=== PATIENT | male | born 1965 | race Caucasian/White ===

== ENCOUNTER 2019-04-01 19:14 | Emergency (ER) | payer OTHER ==
[2019-04-01] MEDS ORDERED: dexAMETHasone 4 MG TAB ONE (21:46)
[2019-04-01] MEDS ORDERED: SMZ./TMP. 800/160 MG TABLET ONE (21:46)
--- NOTE | 2019-04-01 21:49 | ER ---
Nurse's Notes [facility] Name: Amandeep Emerson Age: 53 yrs Sex: Male : 1965 Arrival Date: 04/01/2019 Time: 19:25 Bed 14 Private MD: Diagnosis: Acute upper respiratory infection, unspecified;Cutaneous abscess of limb Presentation: 04/01 19:40 Presenting complaint: Patient states: Runny nose, cough, scratchy throat for about a lp1 week and a half; Unknown fever; Small abscess to back of right upper arm. Transition of care: patient was not received from another setting of care. Onset of symptoms was April 01, 2019. Risk Assessment: Do you want to hurt yourself or someone else? Patient reports no desire to harm self or others. Initial Sepsis Screen: Does the patient meet any 2 criteria? No. Patient's initial sepsis screen is negative. Does the patient have a suspected source of infection? No. Patient's initial sepsis screen is negative. Care prior to arrival: None. 19:40 Method Of Arrival: Ambulatory lp1 19:40 Acuity: JOCELYN 4 lp1 Historical: - Allergies: 19:40 No Known Allergies; lp1 - Home Meds: 19:40 Tramadol Oral [Active]; lp1 - PMHx: 19:40 Headaches; Hypertension; lp1 - PSHx: 19:40 None; lp1 - Immunization history:: Adult Immunizations up to date, Flu vaccine is not up to date. - Social history:: Smoking status: Patient/guardian denies using tobacco. - Ebola Screening: : No symptoms or risks identified at this time. Screenin:42 Abuse screen: Denies threats or abuse. Nutritional screening: No deficits noted. ea Tuberculosis screening: No symptoms or risk factors identified. Fall Risk None identified. Assessment: 20:41 General: Appears uncomfortable, Behavior is calm, cooperative, appropriate for age. ea Pain: Complains of pain in body aches and right upper arm pain. Neuro: Level of Consciousness is awake, alert, obeys commands, Oriented to person, place, time, situation. Respiratory: Airway is patent Respiratory effort is even, unlabored, Respiratory pattern is regular, symmetrical. Derm: Skin is pink, warm \T\ dry. 21:19 Reassessment: Patient and/or family updated on plan of care and expected duration. Pain ea level reassessed. Patient is alert, oriented x 3, equal unlabored respirations, skin warm/dry/pink. Awaiting for lab results. 22:35 Reassessment: Patient and/or family updated on plan of care and expected duration. Pain ea level reassessed. Patient is alert, oriented x 3, equal unlabored respirations, skin warm/dry/pink. Discharge instruction given to patient, verbalized the understanding of instruction. Pt left ED ambulatory accompanied by family. Vital Signs: 19:42 BP 126 / 91; Pulse 93; Resp 20; Temp 98.2(O); Pulse Ox 94% on R/A; Weight 111.13 kg lp1 (R); Height 6 ft. 2 in. (187.96 cm); Pain 5/10; 20:00 Pulse 88; Resp 18; Pulse Ox 96% on R/A; ea 22:15 BP 130 / 78; Pulse 87; Resp 18; Temp 98.0; Pulse Ox 100% ; ea 19:42 Body Mass Index 31.46 (111.13 kg, 187.96 cm) lp1 ED Course: 19:25 Patient arrived in ED. cf2 19:40 Arm band placed on left wrist. lp1 19:42 Triage completed. lp1 19:48 [facility] snw 19:48 John Bhatia MD is Attending Physician. snw 20:41 Indira Trevino, RANDY is Primary Nurse. ea 20:42 Patient has correct armband on for positive identification. Bed in low position. Call ea light in reach. Side rails up X 1. 22:35 No provider procedures requiring assistance completed. Patient did not have IV access ea during this emergency room visit. Administered Medications: 21:49 Drug: Decadron 8 mg Route: PO; ea 22:00 Follow up: Response: No adverse reaction ea 21:49 Drug: Bactrim (160 mg-800 mg (DS) 1 tablet Route: PO; ea 22:00 Follow up: Response: No adverse reaction ea Outcome: 21:48 Discharge ordered by . snw 22:35 Discharged to home ambulatory, with family. ea 22:35 Condition: stable 22:35 Discharge instructions given to patient, Instructed on discharge instructions, follow up and referral plans. medication usage, Demonstrated understanding of instructions, follow-up care, medications. 22:36 Patient left the ED. ea Signatures: Yaneth Buckner, STITCH SEPARATOR-C STITCH SEPARATOR-Csnw Ruthann Ward RN RN lp1 Indira Trevino RN RN ea Danis Blake 2
--- NOTE | 2019-04-01 21:49 | EDPHYS ---
Physician Documentation [facility] Name: Amandeep Emerson Age: 53 yrs Sex: Male : 1965 Arrival Date: 04/01/2019 Time: 19:25 Bed 14 Private MD: ED Physician John Bhatia HPI: 04/01 20:33 This 53 yrs old Male presents to ER via Ambulatory with complaints of Flu snw Symptoms. 20:33 Onset: The symptoms/episode began/occurred gradually, 1 week(s) ago, and became snw persistent. Associated signs and symptoms: Pertinent positives: congestion, cough, sore throat, hoarse voice, Pertinent negatives: fever. Modifying factors: The patient symptoms are alleviated by nothing. It is unknown whether or not the patient has had similar symptoms in the past. It is unknown whether or not the patient has recently seen a physician. all household members with similar s/s. Historical: - Allergies: 19:40 No Known Allergies; lp1 - Home Meds: 19:40 Tramadol Oral [Active]; lp1 - PMHx: 19:40 Headaches; Hypertension; lp1 - PSHx: 19:40 None; lp1 - Immunization history:: Adult Immunizations up to date, Flu vaccine is not up to date. - Social history:: Smoking status: Patient/guardian denies using tobacco. - Ebola Screening: : No symptoms or risks identified at this time. ROS: 20:32 Constitutional: Negative for fever, chills, and weight loss, Eyes: Negative for injury, snw pain, redness, and discharge, Neck: Negative for injury, pain, and swelling, Cardiovascular: Negative for chest pain, palpitations, and edema, Respiratory: Negative for shortness of breath, cough, wheezing, and pleuritic chest pain, Abdomen/GI: Negative for abdominal pain, nausea, vomiting, diarrhea, and constipation, Back: Negative for injury and pain, : Negative for injury, bleeding, discharge, and swelling, MS/Extremity: Negative for injury and deformity, Neuro: Negative for headache, weakness, numbness, tingling, and seizure, Psych: Negative for depression, anxiety, suicide ideation, homicidal ideation, and hallucinations. 20:32 ENT: Positive for sinus congestion, sore throat. 20:32 ENT: Positive for hoarseness. 20:32 Neck: Positive for swollen nodes. 20:32 Skin: Positive for abscess, of the posterior aspect of right shoulder. Exam: 20:30 Constitutional: This is a well developed, well nourished patient who is awake, alert, snw and in no acute distress. Head/Face: Normocephalic, atraumatic. Eyes: Pupils equal round and reactive to light, extra-ocular motions intact. Lids and lashes normal. Conjunctiva and sclera are non-icteric and not injected. Cornea within normal limits. Periorbital areas with no swelling, redness, or edema. Chest/axilla: Normal chest wall appearance and motion. Nontender with no deformity. No lesions are appreciated. Cardiovascular: Regular rate and rhythm with a normal S1 and S2. No gallops, murmurs, or rubs. Normal PMI, no JVD. No pulse deficits. Respiratory: Lungs have equal breath sounds bilaterally, clear to auscultation and percussion. No rales, rhonchi or wheezes noted. No increased work of breathing, no retractions or nasal flaring. Abdomen/GI: Soft, non-tender, with normal bowel sounds. No distension or tympany. No guarding or rebound. No evidence of tenderness throughout. Back: No spinal tenderness. No costovertebral tenderness. Full range of motion. MS/ Extremity: Pulses equal, no cyanosis. Neurovascular intact. Full, normal range of motion. Neuro: Awake and alert, GCS 15, oriented to person, place, time, and situation. Cranial nerves II-XII grossly intact. Motor strength 5/5 in all extremities. Sensory grossly intact. Cerebellar exam normal. Normal gait. Psych: Awake, alert, with orientation to person, place and time. Behavior, mood, and affect are within normal limits. 20:30 ENT: External ear(s): are unremarkable, TM's: are normal, Nose: is normal, Mouth: is normal, Posterior pharynx: swelling, erythema, that is moderate, that is marked, left posterior column, Voice: is hoarse. 20:30 Neck: Lymph nodes: lymphadenopathy is appreciated, anterior cervical nodes. 20:30 Skin: Appearance: normal except for affected area, abscess, that is moderate sized, approximately 1 cm(s), of the posterior aspect of right shoulder, with surrounding cellulitis, that is very mild. Vital Signs: 19:42 BP 126 / 91; Pulse 93; Resp 20; Temp 98.2(O); Pulse Ox 94% on R/A; Weight 111.13 kg lp1 (R); Height 6 ft. 2 in. (187.96 cm); Pain 5/10; 20:00 Pulse 88; Resp 18; Pulse Ox 96% on R/A; ea 22:15 BP 130 / 78; Pulse 87; Resp 18; Temp 98.0; Pulse Ox 100% ; ea 19:42 Body Mass Index 31.46 (111.13 kg, 187.96 cm) lp1 MDM: 20:00 Patient medically screened. snw 21:48 Data reviewed: vital signs, nurses notes. Data interpreted: Pulse oximetry: on room air snw is 94 %. Interpretation: acceptable. Counseling: I had a detailed discussion with the patient and/or guardian regarding: the historical points, exam findings, and any diagnostic results supporting the discharge/admit diagnosis, lab results, the need for outpatient follow up, to return to the emergency department if symptoms worsen or persist or if there are any questions or concerns that arise at home. Special discussion: I have referred the patient to see his PCP for further evaluation of high blood pressure. Based on the history and exam findings, there is no indication for further emergent testing or inpatient evaluation. I discussed with the patient/guardian the need to see the primary care provider for further evaluation of the symptoms. 04/01 20:55 Order name: Strep; Complete Time: 21:53 ea 04/01 21:48 Order name: Throat Culture EDMS Administered Medications: 21:49 Drug: Decadron 8 mg Route: PO; ea 22:00 Follow up: Response: No adverse reaction ea 21:49 Drug: Bactrim (160 mg-800 mg (DS) 1 tablet Route: PO; ea 22:00 Follow up: Response: No adverse reaction ea Disposition: 04/02 00:45 Co-signature as Attending Physician, John Bhatia MD. rn Disposition: 04/01/19 21:48 Discharged to Home. Impression: Acute upper respiratory infection, unspecified, Cutaneous abscess of limb. - Condition is Stable. - Discharge Instructions: Skin Abscess, Upper Respiratory Infection, Adult, Cool Mist Vaporizer, Rehydration, Adult. - Prescriptions for Bactrim DS 800- 160 mg Oral Tablet - take 1 tablet by ORAL route every 12 hours for 10 days; 20 tablet. - Work release form, Medication Reconciliation Form, Thank You Letter, Antibiotic Education, Prescription Opioid Use form. - Follow up: Private Physician; When: 2 - 3 days; Reason: Recheck today's complaints, Continuance of care, Re-evaluation by your physician. Follow up: Emergency Department; When: As needed; Reason: Worsening of condition. Signatures: Dispatcher [employer] EDMS Yaneth Buckner, SOURAV-C DIRECTOR HOSPICE OPERATIONS-Csnw Jhon Bhatia MD MD rn Ruthann Ward RN RN lp1 Indira Trevino RN RN ea Corrections: (The following items were deleted from the chart) 04/01 22:36 21:48 04/01/2019 21:48 Discharged to Home. Impression: Acute upper respiratory ea infection, unspecified; Cutaneous abscess of limb. Condition is Stable. Forms are Medication Reconciliation Form, Thank You Letter, Antibiotic Education, Prescription Opioid Use. Follow up: Private Physician; When: 2 - 3 days; Reason: Recheck today's complaints, Continuance of care, Re-evaluation by your physician. Follow up: Emergency Department; When: As needed; Reason: Worsening of condition. snw
[2019-04-02 01:36] VITALS: BP 126/91; TEMP 98.2; O2SAT 94
== END 2019-04-01 22:36 | disposition home or self-care (01) ==
LOC: ER 19:14
DX: J06.9 Acute upper respiratory infection, unspecified (principal); L02.413 Cutaneous abscess of right upper limb; I10 Essential (primary) hypertension
CPT/HCPCS: 87070; 87081; 99283; J8540

== ENCOUNTER 2019-12-08 12:56 | Observation (INO) | payer BC, OTHER ==
[2019-12-08] MEDS ORDERED: ASPIRIN 81 MG CHEWABLE TABLET ONE (13:59)
[2019-12-08] MEDS ORDERED: NA CHLORIDE 0.9% 1,000 ML ONE (14:00)
[2019-12-08 14:18] LABS: Absolute Lymphocytes (CBC) 1.6 K/uL (0.7-4.9); Basophils % 0.6 % (0-1.3); Hematocrit 42.3 % (39.6-49.0); MPV 10.6 fL (7.6-11.3); RBC Red Blood Cell Count 4.63 M/uL (4.33-5.43)
[2019-12-08 14:42] LABS: ALT/SGPT 68 U/L (12-78); AST/SGOT 29 U/L (15-37); Albumin 3.9 g/dL (3.4-5.0); Alkaline Phosphatase 117 U/L (45-117); BUN Blood Urea Nitrogen 8 mg/dL (7-18); Bicarbonate 27 mmol/L (21-32); Bilirubin Direct 0.1 mg/dL (0-0.2); Bilirubin Total 0.4 mg/dL (0.2-1.0); Glucose Level 93 mg/dL (74-106); Lipase 107 U/L (73-393); Magnesium 2.4 mg/dL (1.8-2.4); NT PRO-BNP 36 pg/mL (<125); Potassium 4.2 mmol/L (3.5-5.1); Protein, Total 7.5 g/dL (6.4-8.2); Sodium Level 141 mmol/L (136-145); Troponin (Emerg Dept Use Only) < 0.02 ng/mL (0.0-0.045)
--- NOTE | 2019-12-08 14:50 | EDPHYS ---
Physician Documentation [facility] Name: Amandeep Emerson Age: 54 yrs Sex: Male : 1965 Arrival Date: 12/08/2019 Time: 13:00 Bed 6 Private MD: DONNELL Physician Glen Burgos HPI: 12/07 14:46 This 54 yrs old Male presents to ER via Ambulatory with complaints of Chest anthony Pain. 14:46 The patient or guardian reports chest pain that is located primarily in the substernal anthony area. Onset: just prior to arrival, this morning. The pain radiates to both arms. Associated signs and symptoms: Pertinent positives: dizziness, shortness of breath. The chest pain is described as a heaviness, a pressure. Duration: The patient or guardian reports multiple episodes, with no pattern. Modifying factors: The symptoms are alleviated by nothing. the symptoms are aggravated by nothing. Severity of pain: At its worst the pain was moderate in the emergency department the pain has improved moderately. The patient has experienced similar episodes in the past, a few times. Historical: - Allergies: 13:05 No Known Allergies; ll1 - PMHx: 13:05 Headaches; Hypertension; High Cholesterol; ll1 14:13 COPD; vc - PSHx: 13:05 None; ll1 - Immunization history:: Flu vaccine is not up to date. - Social history:: Smoking status: Patient/guardian denies using tobacco, the patient reports quitting approximately 3 years ago, Patient/guardian denies using alcohol, street drugs, tobacco products. - Family history:: not pertinent. ROS: 14:46 Constitutional: Negative for fever, chills, and weight loss, Eyes: Negative for injury, anthony pain, redness, and discharge, ENT: Negative for injury, pain, and discharge, Neck: Negative for injury, pain, and swelling, Cardiovascular: Negative for chest pain, palpitations, and edema, Abdomen/GI: Negative for abdominal pain, nausea, vomiting, diarrhea, and constipation, Back: Negative for injury and pain, : Negative for injury, bleeding, discharge, and swelling, MS/Extremity: Negative for injury and deformity, Skin: Negative for injury, rash, and discoloration, Neuro: Negative for headache, weakness, numbness, tingling, and seizure, Psych: Negative for depression, anxiety, suicide ideation, homicidal ideation, and hallucinations, Allergy/Immunology: Negative for hives, rash, and allergies, Endocrine: Negative for neck swelling, polydipsia, polyuria, polyphagia, and marked weight changes, Hematologic/Lymphatic: Negative for swollen nodes, abnormal bleeding, and unusual bruising. 14:46 Respiratory: Positive for cough, shortness of breath, at rest. 14:46 Respiratory: Positive for Exam: 14:46 Constitutional: This is a well developed, well nourished patient who is awake, alert, anthony and in no acute distress. Head/Face: Normocephalic, atraumatic. Eyes: Pupils equal round and reactive to light, extra-ocular motions intact. Lids and lashes normal. Conjunctiva and sclera are non-icteric and not injected. Cornea within normal limits. Periorbital areas with no swelling, redness, or edema. ENT: Nares patent. No nasal discharge, no septal abnormalities noted. Tympanic membranes are normal and external auditory canals are clear. Oropharynx with no redness, swelling, or masses, exudates, or evidence of obstruction, uvula midline. Mucous membranes moist. Neck: Trachea midline, no thyromegaly or masses palpated, and no cervical lymphadenopathy. Supple, full range of motion without nuchal rigidity, or vertebral point tenderness. No Meningismus. Chest/axilla: Normal chest wall appearance and motion. Nontender with no deformity. No lesions are appreciated. Cardiovascular: Regular rate and rhythm with a normal S1 and S2. No gallops, murmurs, or rubs. Normal PMI, no JVD. No pulse deficits. Respiratory: Lungs have equal breath sounds bilaterally, clear to auscultation and percussion. No rales, rhonchi or wheezes noted. No increased work of breathing, no retractions or nasal flaring. Abdomen/GI: Soft, non-tender, with normal bowel sounds. No distension or tympany. No guarding or rebound. No evidence of tenderness throughout. Back: No spinal tenderness. No costovertebral tenderness. Full range of motion. Male : Normal genitalia with no discharge or lesions. Skin: Warm, dry with normal turgor. Normal color with no rashes, no lesions, and no evidence of cellulitis. MS/ Extremity: Pulses equal, no cyanosis. Neurovascular intact. Full, normal range of motion. Neuro: Awake and alert, GCS 15, oriented to person, place, time, and situation. Cranial nerves II-XII grossly intact. Motor strength 5/5 in all extremities. Sensory grossly intact. Cerebellar exam normal. Normal gait. Psych: Awake, alert, with orientation to person, place and time. Behavior, mood, and affect are within normal limits. Vital Signs: 13:08 BP 157 / 113; Pulse 78; Resp 18; Temp 98.1; Pulse Ox 96% ; Pain 5/10; ll1 14:07 BP 138 / 93; Pulse 67; Resp 17; Pulse Ox 91% on R/A; vc 15:00 BP 138 / 96; Pulse 66; Resp 18; Pulse Ox 93% on R/A; ph 15:03 Weight 127.01 kg; ph 16:00 BP 141 / 98; Pulse 66; Resp 16; Pulse Ox 94% on R/A; ph 17:00 BP 146 / 108; Pulse 59; Resp 18; Pulse Ox 93% on R/A; ph 18:09 BP 139 / 102; Pulse 75; Resp 18; Pulse Ox 94% on R/A; ph 19:00 BP 135 / 100; Pulse 61; Resp 17; Pulse Ox 93% on R/A; rr5 19:51 BP 131 / 98; Pulse 58; Resp 17; Temp 97.6; Pulse Ox 94% on R/A; rr5 MDM: 13:[address] [facility] 14:48 Data reviewed: vital signs, nurses notes, lab test result(s), EKG, radiologic studies, [facility] CT scan, plain films. 12/07 13:26 Order name: Basic Metabolic Panel; Complete Time: 14:43 [facility] 12/07 13:26 Order name: CBC with Diff; Complete Time: 14:43 [facility] 12/07 13:26 Order name: LFT's; Complete Time: 14:43 [facility] 12/07 13:26 Order name: Magnesium; Complete Time: 14:43 [facility] 12/07 13:26 Order name: NT PRO-BNP; Complete Time: 14:43 [facility] 12/07 13:26 Order name: Troponin (emerg Dept Use Only); Complete Time: 14:43 [facility] 12/07 13:26 Order name: XRAY Chest (1 view); Complete Time: 15:33 [facility] 12/07 13:26 Order name: EKG; Complete Time: 13:28 [facility] 12/07 13:26 Order name: Cardiac monitoring; Complete Time: 14:12 [facility] 12/07 13:26 Order name: Lipase; Complete Time: 14:43 [facility] 12/07 13:26 Order name: EKG - Nurse/Tech; Complete Time: 14:12 [facility] 12/07 13:26 Order name: IV Saline Lock; Complete Time: 14:12 [facility] 12/07 13:26 Order name: Labs collected and sent; Complete Time: 14:12 [facility] 12/07 13:26 Order name: O2 Per Protocol; Complete Time: 14:12 [facility] 12/07 13:26 Order name: O2 Sat Monitoring; Complete Time: 14:12 [facility] Administered Medications: 13:55 Drug: Aspirin Chewable Tablet 324 mg Route: PO; vc 18:31 Follow up: Response: No adverse reaction ph 14:07 Drug: NS 0.9% 1000 ml Route: IV; Rate: 125 ml/hr; Site: right antecubital; vc 18:31 Follow up: Response: No adverse reaction; IV Status: Infusion continued upon admission ph 18:03 Drug: Lovenox 1 mg/kg {Note: 100 mg dose given.} Route: Sub-Q; Site: right lower ph abdomen; 18:32 Follow up: Response: No adverse reaction ph 18:04 Drug: Lopressor (metoprolol TARTRATE) 50 mg Route: PO; ph 18:32 Follow up: Response: No adverse reaction ph Disposition: 12/08/19 14:50 Hospitalization ordered by Edson Lawrence for Observation. Preliminary diagnosis are Chest pain, unspecified, Chronic obstructive pulmonary disease, unspecified, Essential (primary) hypertension. - Bed requested for Telemetry/MedSurg (observation). - Status is Observation. rr5 - Condition is Fair. - Problem is new. - Symptoms have improved. Signatures: Dispatcher [employer] EDMS Amalia Gutierrez RN RN kl Anderson, Corey, MD MD cha Attema, Lee, COMMIS CHEF-C COMMIS CHEF-Cla1 Flower Gutierrez RN RN ph Roque, Raymond, RN RN rr5 Daja Mobley RN RN vc Lewis, Lynsay, RN RN ll1 Corrections: (The following items were deleted from the chart) 18:05 14:50 Hospitalization Ordered by Edson Lawrence DO for Observation. Preliminary kl diagnosis is Chest pain, unspecified; Chronic obstructive pulmonary disease, unspecified; Essential (primary) hypertension. Bed requested for Telemetry/MedSurg (observation). Status is Observation. Condition is Fair. Problem is new. Symptoms have improved. anthony 20:41 18:05 12/08/2019 14:50 Hospitalization Ordered by Edson Lawrence DO for Observation. rr5 Preliminary diagnosis is Chest pain, unspecified; Chronic obstructive pulmonary disease, unspecified; Essential (primary) hypertension. Bed requested for Telemetry/MedSurg (observation). Status is Observation. Condition is Fair. Problem is new. Symptoms have improved. kl
--- NOTE | 2019-12-08 14:50 | ER ---
Nurse's Notes [facility] Name: Amandeep Emerson Age: 54 yrs Sex: Male : 1965 Arrival Date: 12/08/2019 Time: 13:00 Bed 6 Private MD: Diagnosis: Chest pain, unspecified;Chronic obstructive pulmonary disease, unspecified;Essential (primary) hypertension Presentation: 12/07 13:08 Chief complaint: Patient states: Left sided CP since Sunday, severe yesterday. ll1 Continued left CP today with fatigue. Radiates into neck and arms at times. Hasn't been taking high cholesterol medication. Coronavirus screen: Proceed with normal triage. Patient denies a cough. Patient denies shortness of breath or difficulty breathing. Patient denies measured and/or subjective temperature greater than 100.4F prior to today's visit. Patient denies travel on a cruise ship or to a country the [facility] currently lists as an affected area. Patient denies contact with known and/or suspected case of COVID-19. Ebola Screen: Patient denies travel to an Ebola-affected area in the 21 days before illness onset. Initial Sepsis Screen: Does the patient meet any 2 criteria? No. Patient's initial sepsis screen is negative. Does the patient have a suspected source of infection? No. Patient's initial sepsis screen is negative. Risk Assessment: Do you want to hurt yourself or someone else? Patient reports no desire to harm self or others. Onset of symptoms was December 06, 2019. 13:08 Method Of Arrival: Ambulatory ll1 13:08 Acuity: JOCELYN 2 ll1 Triage Assessment: 12/06 13:55 General: Appears in no apparent distress. uncomfortable, Behavior is calm, cooperative, vc appropriate for age. Pain: Complains of pain in below left breast Pain does not radiate. Pain currently is 5 out of 10 on a pain scale. at worst was 10 out of 10 on a pain scale. Quality of pain is described as sharp, Pain began suddenly, 2-3 days ago. Is intermittent. Cardiovascular: Capillary refill < 3 seconds Patient's skin is warm and dry. Respiratory:. Historical: - Allergies: 12/07 13:05 No Known Allergies; ll1 - PMHx: 13:05 Headaches; Hypertension; High Cholesterol; ll1 14:13 COPD; vc - PSHx: 13:05 None; ll1 - Immunization history:: Flu vaccine is not up to date. - Social history:: Smoking status: Patient/guardian denies using tobacco, the patient reports quitting approximately 3 years ago, Patient/guardian denies using alcohol, street drugs, tobacco products. - Family history:: not pertinent. Screenin:55 Abuse screen: Denies threats or abuse. Nutritional screening: No deficits noted. vc Tuberculosis screening: No symptoms or risk factors identified. Fall Risk None identified. Assessment: 13:55 General: Appears in no apparent distress. uncomfortable, Behavior is calm, cooperative, vc appropriate for age. Pain: Complains of pain in below left breast Pain does not radiate. Pain currently is 5 out of 10 on a pain scale. at worst was 10 out of 10 on a pain scale. Quality of pain is described as sharp, stabbing, Pain began suddenly, 2-3 days ago. Neuro: Level of Consciousness is awake, alert, obeys commands, Oriented to person, place, time, situation, Appropriate for age Patient Observation Assistant are equal bilaterally Moves all extremities. Speech is normal. Cardiovascular: Reports chest pain, Denies lightheadedness, palpitations, shortness of breath, Capillary refill < 3 seconds Patient's skin is warm and dry. Chest pain is described as mild, quality is sharp, stabbing, is located in left substernal area. Respiratory: Airway is patent Respiratory effort is even, unlabored, Respiratory pattern is regular, symmetrical. GI: No signs and/or symptoms were reported involving the gastrointestinal system. : No signs and/or symptoms were reported regarding the genitourinary system. EENT: No deficits noted. Derm: Skin is dry, Skin is pink, warm \T\ dry. Skin temperature is warm. Musculoskeletal: Circulation, motion, and sensation intact. Range of motion: intact in all extremities. 15:00 Reassessment: Patient appears in no apparent distress at this time. Patient and/or ph family updated on plan of care and expected duration. Pain level reassessed. Patient is alert, oriented x 3, equal unlabored respirations, skin warm/dry/pink. 16:00 Reassessment: Patient appears in no apparent distress at this time. Patient and/or ph family updated on plan of care and expected duration. Pain level reassessed. Patient is alert, oriented x 3, equal unlabored respirations, skin warm/dry/pink. Patient denies pain at this time. 17:00 Reassessment: Patient appears in no apparent distress at this time. Patient and/or ph family updated on plan of care and expected duration. Pain level reassessed. Patient is alert, oriented x 3, equal unlabored respirations, skin warm/dry/pink. 18:04 Reassessment: Patient appears in no apparent distress at this time. Patient and/or ph family updated on plan of care and expected duration. Pain level reassessed. Patient is alert, oriented x 3, equal unlabored respirations, skin warm/dry/pink. Pt resting quietly, denies pain at this time, VSS, eating a sandwich at this time, tolerating well, awaiting room assignment. 18:20 Reassessment: Patient appears in no apparent distress at this time. No changes from previously documented assessment. Patient and/or family updated on plan of care and expected duration. Pain level reassessed. Patient is alert, oriented x 3, equal unlabored respirations, skin warm/dry/pink. Attempted to call report, receiving nurse unavailable. 19:30 Reassessment: Patient appears in no apparent distress at this time. Patient is alert, rr5 oriented x 3, equal unlabored respirations, skin warm/dry/pink. for transfer to room 212. received awake alert vitally stable, watching TV on semi fowlers position, no complaints made. 19:30 General: Appears in no apparent distress. comfortable, Behavior is calm, cooperative, rr5 appropriate for age. Vital Signs: 13:08 BP 157 / 113; Pulse 78; Resp 18; Temp 98.1; Pulse Ox 96% ; Pain 5/10; ll1 14:07 BP 138 / 93; Pulse 67; Resp 17; Pulse Ox 91% on R/A; vc 15:00 BP 138 / 96; Pulse 66; Resp 18; Pulse Ox 93% on R/A; ph 15:03 Weight 127.01 kg; ph 16:00 BP 141 / 98; Pulse 66; Resp 16; Pulse Ox 94% on R/A; ph 17:00 BP 146 / 108; Pulse 59; Resp 18; Pulse Ox 93% on R/A; ph 18:09 BP 139 / 102; Pulse 75; Resp 18; Pulse Ox 94% on R/A; ph 19:00 BP 135 / 100; Pulse 61; Resp 17; Pulse Ox 93% on R/A; rr5 19:51 BP 131 / 98; Pulse 58; Resp 17; Temp 97.6; Pulse Ox 94% on R/A; rr5 ED Course: 13:00 Patient arrived in ED. mr 13:05 Arm band placed on Patient placed in an exam room, on a stretcher. ll1 13:06 Glen Burgos MD is Attending Physician. anthony 13:11 Triage completed. ll1 13:12 Flower Gutierrez, RANDY is Primary Nurse. ph 13:34 EKG done, by technical delivery manager. reviewed by Glen Burgos MD. at1 13:55 Patient has correct armband on for positive identification. Bed in low position. Call vc light in reach. senior office assistant on. Pulse ox on. NIBP on. 13:55 Inserted saline lock: 20 gauge in right antecubital area, using aseptic technique. vc Blood collected. 14:49 Edson Lawrence DO is Hospitalizing Provider. anthony 14:59 XRAY Chest (1 view) In Process Unspecified. EDMS 18:08 No provider procedures requiring assistance completed. Patient admitted, IV remains in ph place. Patient maintains SpO2 saturation greater than 95% on room air. Administered Medications: 13:55 Drug: Aspirin Chewable Tablet 324 mg Route: PO; vc 18:31 Follow up: Response: No adverse reaction ph 14:07 Drug: NS 0.9% 1000 ml Route: IV; Rate: 125 ml/hr; Site: right antecubital; vc 18:31 Follow up: Response: No adverse reaction; IV Status: Infusion continued upon admission ph 18:03 Drug: Lovenox 1 mg/kg {Note: 100 mg dose given.} Route: Sub-Q; Site: right lower ph abdomen; 18:32 Follow up: Response: No adverse reaction ph 18:04 Drug: Lopressor (metoprolol TARTRATE) 50 mg Route: PO; ph 18:32 Follow up: Response: No adverse reaction ph Outcome: 14:50 Decision to Hospitalize by Provider. anthony 20:09 Admitted to Med/surg accompanied by tech, via stretcher, room 212, with chart, Report rr5 called to [place] PADILLA 20:09 Condition: stable 20:09 Instructed on the need for admit. 20:41 Patient left the ED. rr5 Signatures: Dispatcher [employer] EDGlen Wetzel MD MD cha Rivera, Thalia mr Tavo, Hien, hand mixer EKG Tat1 Flower Gutierrez RN RN Jose Vanessa RN RN rr5 Daja Mobley RN RN Mary Ann Doran RN RN ll1
[2019-12-08] MEDS ORDERED: METOPROLOL TAR 50 MG TAB ONE (15:10)
[2019-12-08] MEDS ORDERED: ENOXAPARIN 100 MG/ML SYR SQ ONE (15:10)
--- NOTE | 2019-12-08 15:20 | RAD REPORT ---
EXAM DESCRIPTION: RAD - Chest Single View - 12/08/2019 2:58 pm CLINICAL HISTORY: CHEST PAIN Chest pain. COMPARISON: Chest Pa And Lat (2 Views) dated 05/25/2016 FINDINGS: Portable technique limits examination quality. The lungs are grossly clear. The heart is normal in size. No displaced fractures. IMPRESSION: No acute intrathoracic process suspected.
--- NOTE | 2019-12-08 17:58 | P.HP ---
Certification for Inpatient Patient admitted to: Observation With expected LOS: <2 Midnights Patient will require the following post-hospital care: None Practitioner: I am a practitioner with admitting privileges, knowledge of patient current condition, hospital course, and medical plan of care. Services: Services provided to patient in accordance with Admission requirements found in Title 42 Section 412.3 of the Code of Federal Regulations <Hernandez Butcher Filed: 12/08/19 17:53> Patient admitted to: Observation <Edson Lawrence - Last Filed: 12/08/19 20:46> Patient History Date of Service: 12/08/19 Primary Care Provider: none Reason for admission: Chest pain History of Present Illness: 54-year-old male with history of hypertension presented the emergency department for chest pain. Patient reports that the chest pain has been radiating down his left arm, patient reports admission to another facility approximately 1 year ago for similar symptoms. Patient unsure of what kind of workup he received at that time. Patient is currently having very mild symptoms with some mild shortness of breath, but he is not hypoxic. Patient is mildly hypertensive and is not on any medications at this time. Patient without PCP. Patient was evaluated in the emergency department and found to have normal EKG, chest x-ray, negative cardiac enzymes. ED provider wishes to admit patient for observation overnight and further cardiac evaluation. When I saw the patient in the emergency department he was calm, cooperative, oriented x3, in no distress. Will admit patient overnight, trend cardiac enzymes, order an echocardiogram, consult cardiology. - Past Medical/Surgical History Diabetic: No -: Hypertension -: none - Family History Father -: Heart disease Sister -: Heart disease - Social History Smoking Status: Former smoker Alcohol use: No CD- Drugs: No Caffeine use: No Place of Residence: Home <Hernandez Butcher - Last Filed: 12/08/19 17:53> Date of Service: 12/08/19 Home medications list reviewed: Yes - Past Medical/Surgical History Psychosocial/ Personal History: Lives at home <Edson Lawrence - Last Filed: 12/08/19 20:46> Allergies No Known A Allergy (Uncoded 01/28/17 00:21) Unknown No Known Al Allergy (Uncoded 01/26/17 07:16) Unknown No Known Miky Allergy (Uncoded 02/10/17 21:26) Unknown Home Medications: Apixaban [Eliquis] 5 mg PO BID #60 tablet 02/10/17 Review of Systems 10-point ROS is otherwise unremarkable Respiratory: Shortness of Breath Cardiovascular: Chest Pain <Hernandez Butcher - Last Filed: 12/08/19 17:53> Physical Examination - Physical Exam General: Alert, In no apparent distress, Oriented x3 HEENT: Atraumatic, Normocephalic, PERRLA, Mucous membr. moist/pink Neck: Supple Respiratory: Clear to auscultation bilaterally, Normal air movement Cardiovascular: Normal pulses, Regular rate/rhythm, Normal S1 S2 Capillary refill: <2 Seconds Gastrointestinal: Normal bowel sounds, Soft and benign Musculoskeletal: No contractures, No erythema, No tenderness Integumentary: No tenderness/swelling, No erythema Neurological: Normal speech, Normal strength at 5/5 x4 extr, Normal tone, Sensation intact - Studies Laboratory Data (last 24 hrs) 12/08/19 14:00: WBC 7.4, Hgb 14.0, Hct 42.3, Plt Count 210 12/08/19 14:00: Sodium 141, Potassium 4.2, BUN 8, Creatinine 0.92, Glucose 93, Magnesium 2.4, Total Bilirubin 0.4, AST 29, ALT 68, Alkaline Phosphatase 117, Lipase 107 <Hernandez Butcher - Last Filed: 12/08/19 17:53> - Studies Laboratory Data (last 24 hrs) 12/08/19 14:00: WBC 7.4, Hgb 14.0, Hct 42.3, Plt Count 210 12/08/19 14:00: Sodium 141, Potassium 4.2, BUN 8, Creatinine 0.92, Glucose 93, Magnesium 2.4, Total Bilirubin 0.4, AST 29, ALT 68, Alkaline Phosphatase 117, Lipase 107 <Edson Lawrence - Last Filed: 12/08/19 20:46> Assessment and Plan - Plan Assessment Chest pain Hypertension Plan Chest pain : The patient be admitted for observation overnight, will trend cardiac enzymes, provide patient with daily aspirin, a statin. Added metoprolol. DVT prophylaxis with Lovenox 40 mg subcutaneous once daily. Cardiology has been consulted on this case, echocardiogram ordered. Anticipate benign workup and likely discharge tomorrow. Hypertension: Patient reports issue blood pressure, is hypertensive and not taking any medications currently. Initiated therapy with metoprolol 25 mg b.i.d.. Will continue to monitor closely. - Advance Directives Does patient have a Living Will: No Does patient have a Durable POA for Healthcare: No - Code Status/Comfort Care Code Status Assessed: Yes (Patient is full code) Critical Care: No Time Spent Managing Pts Care (In Minutes): 55 <Hernandez Butcher - Last Filed: 12/08/19 17:53> - Plan Discussed in detail with PIPELINE ENGINEER. Agree with evaluation, assessment and plan of care. Will monitor closely. Monitor telemetry, cardiac enzymes. Will consult Cardiology for recommendations. Will also obtain ECHO. Restart HTN meds. Chest pain HTN Discharge Plan: Home Plan to discharge in: 24 Hours <Edson Lawrence - Last Filed: 12/08/19 20:46>
[2019-12-08] MEDS ORDERED: ONDANSETRON 4 MG/2 ML VIAL IV PRN (20:17)
[2019-12-08] MEDS ORDERED: ACETAMINOPHEN 500 MG TAB PO PRN (20:17)
[2019-12-08] MEDS: METOPROLOL TAR 25 MG TAB PO SCH (20:17)
[2019-12-08] MEDS ORDERED: ATORVASTATIN 40 MG TAB PO SCH (21:00)
[2019-12-08] MEDS: NA CHLORIDE 0.9% 1,000 ML IV SCH (21:14)
[2019-12-08 21:19] VITALS: BMI 30.7
[2019-12-09] MEDS: METOPROLOL TAR 25 MG TAB PO SCH ×2 (04:45→17:28)
[2019-12-09 04:49] LABS: Absolute Lymphocytes (CBC) 2.8 K/uL (0.7-4.9); Basophils % 0.6 % (0-1.3); Hematocrit 38.3 % (39.6-49.0); Lymphocytes % 39.8 % (15.3-44.8); MPV 10.2 fL (7.6-11.3); RBC Red Blood Cell Count 4.22 M/uL (4.33-5.43)
[2019-12-09 05:06] LABS: BUN Blood Urea Nitrogen 10 mg/dL (7-18); Bicarbonate 28 mmol/L (21-32); Glucose Level 105 mg/dL (74-106); HDL Cholesterol 40 mg/dL (40-60); LDL Cholesterol, Calculated 66 (<130); Magnesium 2.2 mg/dL (1.8-2.4); Potassium 4.4 mmol/L (3.5-5.1); Sodium Level 142 mmol/L (136-145); Troponin I < 0.02 ng/mL (0.0-0.045)
[2019-12-09] MEDS ORDERED: ASPIRIN EC 81 MG TAB PO SCH (09:00)
[2019-12-09] MEDS ORDERED: ENOXAPARIN 40 MG/0.4 ML SQ SCH (09:00)
[2019-12-09] MEDS: NA CHLORIDE 0.9% 1,000 ML IV SCH (09:37)
--- NOTE | 2019-12-09 12:11 | EKG ---
Test Date: 2019-12-08 Test Time: 13:29:23 [employer]: CROW MEASUREMENT RESULTS: Intervals: Rate: 72 PA: 176 QRSD: 98 QT: 396 QTc: 433 Osborne: P: 46 PA: 176 QRS: 7 T: 52 INTERPRETIVE STATEMENTS: Normal sinus rhythm Normal ECG Compared to ECG 02/10/2017 16:57:51 No significant changes Electronically Signed On 12-09-19 12:09:36 CDT by Torrey Moulton
[2019-12-09 12:39] VITALS: BP 140/79
[2019-12-09 13:11] VITALS: O2SAT 95
--- NOTE | 2019-12-09 14:56 | CON ---
Date of Consultation: 12/09/2019 Reason For Consultation: Chest pain. History Of Present Illness: Mr. Emerson is a 54-year-old male with history of hypertension, dyslipidemi a, COPD, came in with left lateral sharp stabbing chest pain that has been going on intermittently fo r couple of days without any nausea, vomiting, diaphoresis, PND, orthopnea, pedal edema, palpitations , or syncope. The pain is not related to food, time of the day, or body position. It is not related to exertion. He is already ruled out by the time I saw him. EKG is normal. Past Medical History: As stated above. Allergies: NONE. Review of Systems: Negative. Social History: Negative. Family History: Noncontributory. Medications: None. Physical Examination: Vital Signs: Stable, afebrile. HEENT: Exam negative. Neck: Supple, no bruit. Chest: Clear. Cardiac: Revealed a regular rhythm and rate. No murmurs, gallops, or rubs. Abdomen: Benign. Extremities: Revealed no clubbing, cyanosis, or edema. Diagnostic Data: All within normal limits. Impression And Plan: 1.Atypical chest pain, likely musculoskeletal. 2.Hypertension. 3.Dyslipidemia. 4.Chronic obstructive pulmonary disease. 5.Some dizziness probably secondary to benign positional vertigo. Echocardiogram is pending. We wi ll see what that shows before making final decisions. If that is negative, he can go home and we can make an arrangement for an outpatient stress test. ESTELITA Voice ID: [id number] Report ID: [id number]
--- NOTE | 2019-12-09 15:10 | ECHO ---
HEIGHT: 6 ft 2 in WEIGHT: 239 lb 0 oz DATE OF STUDY: 12/09/[address]: Hernandez Butcher NP 2-DIMENSIONAL: YES M.MODE: YES DOPPLER: YES COLOR FLOW: YES TDS: NO PORTABLE: NO DEFINITY: NO BUBBLE STUDY: NO DIAGNOSIS: CHEST PAIN CARDIAC HISTORY: CATHERIZATION: NO SURGERY: NO PROSTHETIC VALVE: NO PACEMAKER: NO MEASUREMENTS (cm) DIASTOLIC (NORMALS) SYSTOLIC (NORMALS) IVSd 1.0 (0.6-1.2) LA Diam 4.3 (1.9-4.0) LVEF 76% LVIDd 4.7 (3.5-5.7) LVIDs 2.6 (2.0-3.5) %FS 44% LVPWd 1.3 (0.6-1.2) Ao Diam 3.4 (2.0-3.7) 2 DIMENSIONAL ASSESSMENT: RIGHT ATRIUM: NORMAL LEFT ATRIUM: DILATED RIGHT VENTRICLE: NORMAL LEFT VENTRICLE: NORMAL TRICUSPID VALVE: NORMAL MITRAL VALVE: NORMAL PULMONIC VALVE: NORMAL AORTIC VALVE: NORMAL PERICARDIAL EFFUSION: NONE AORTIC ROOT: NORMAL LEFT VENTRICULAR WALL MOTION: NORMAL DOPPLER/COLOR FLOW: NORMAL COMMENTS: LEFT ATRIAL ENLARGEMENT. NORMAL SIZE AND FUNCTION. NO WALL MOTION ABNORMALITY. NO EFFUSION. TECHNOLOGIST: Alejo CALDERON
--- NOTE | 2019-12-09 16:15 | P.DS ---
Admission Date: 12/08/19 Discharge Date: 12/09/19 Primary Care Provider: none Disposition: ROUTINE DISCHARGE Discharge Condition: GOOD Reason for Admission: Chest pain Consultations: Cardiology-Dr. Moulton Procedures: CXR: FINDINGS: Portable technique limits examination quality. The lungs are grossly clear. The heart is normal in size. No displaced fract ures. IMPRESSION: No acute intrathoracic process suspected. ECHO: EF 75% LEFT VENTRICULAR WALL MOTION: NORMAL DOPPLER/COLOR FLOW: NORMAL COMMENTS: LEFT ATRIAL ENLARGEMENT. NORMAL SIZE AND FUNCTION. NO WALL MOTION ABNORMALITY. NO EFFUSION. Medical Problem List: Atypical chest likely musculoskeletal HTN Hypertriglyceridemia COPD Dizziness suspect Benign positional vertigo Brief History of Present Illness: 54-year-old male with history of hypertension, hyperlipidemia, COPD. Patient presented with chest pain. Patient admitted for further evaluation. Hospital Course: Patient presented with atypical chest pain. Cardiac enzymes unremarkable. EKG also unremarkable. Patient found to have elevated blood pressure. Patient was seen by Cardiology. Echocardiogram unremarkable. No intervention was recommended at this time. Patient found to have elevated triglycerides. At discharge patient will continue with aspirin 81 mg daily, metoprolol 25 mg 1 pill twice daily, and fish oil 1000 mg 1 pill twice daily. Recommend to follow up with cardiology in 1-2 weeks to follow up this hospitalization. Patient may benefit with outpatient cardiac stress test to further evaluate. This can be done with the help of Cardiology. Patient with history of COPD. Recommend to follow up with pulmonology to further evaluate and monitor. Patient with chronic dizziness. Recommend follow up with ENT or neurology to further monitor and address. Vital Signs/Physical Exam: Temp Pulse Resp BP Pulse Ox 97.1 F 64 18 140/79 95 12/09/19 12:00 12/09/19 12:00 12/09/19 12:00 12/09/19 12:00 12/09/19 12:00 General: Alert, In no apparent distress HEENT: Atraumatic Neck: Supple Respiratory: Clear to auscultation bilaterally Cardiovascular: Normal pulses, Regular rate/rhythm Neurological: Normal speech, Normal strength at 5/5 x4 extr, Normal tone, Normal affect Laboratory Data at Discharge: WBC 7.1 K/uL (4.3-10.9) 12/09/19 04:23 Hgb 13.0 g/dL (13.6-17.9) L 12/09/19 04:23 Hct 38.3 % (39.6-49.0) L 12/09/19 04:23 Plt Count 178 K/uL (152-406) 12/09/19 04:23 Sodium 142 mmol/L (136-145) 12/09/19 04:23 Potassium 4.4 mmol/L (3.5-5.1) 12/09/19 04:23 BUN 10 mg/dL (7-18) 12/09/19 04:23 Creatinine 0.94 mg/dL (0.55-1.3) 12/09/19 04:23 Glucose 105 mg/dL (74-106) 12/09/19 04:23 Magnesium 2.2 mg/dL (1.8-2.4) 12/09/19 04:23 Total Bilirubin 0.4 mg/dL (0.2-1.0) 12/08/19 14:00 AST 29 U/L (15-37) 12/08/19 14:00 ALT 68 U/L (12-78) 12/08/19 14:00 Alkaline Phosphatase 117 U/L (45-117) 12/08/19 14:00 Troponin I < 0.02 ng/mL (0.0-0.045) 12/09/19 04:23 Triglycerides 380 mg/dL (<150) H 12/09/19 04:23 Cholesterol 182 mg/dL (<200) 12/09/19 04:23 HDL Cholesterol 40 mg/dL (40-60) 12/09/19 04:23 Cholesterol/HDL Ratio 4.55 12/09/19 04:23 Lipase 107 U/L (73-393) 12/08/19 14:00 Home Medications: Aspirin [Aspirin EC 81 MG] 81 mg PO DAILY #90 tablet. 12/09/19 Metoprolol Tartrate 25 mg PO BID #60 tablet 12/09/19 [place]-3 Fatty Acids/Fish Oil [Fish Oil 1,000 mg Softgel] 1 each PO BID #60 capsule 12/09/19 New Medications: Aspirin [Aspirin EC 81 MG] 81 mg PO DAILY #90 tablet.dr [place]-3 Fatty Acids/Fish Oil [Fish Oil 1,000 mg Softgel] 1 each PO BID #60 capsule Metoprolol Tartrate 25 mg PO BID #60 tablet Patient Discharge Instructions: 1. Follow up with PCP in 1 week to follow up this hospitalization. 2. Patient presented with atypical chest pain. Cardiac enzymes unremarkable. EKG also unremarkable. Patient found to have elevated blood pressure. Patient was seen by Cardiology. Echocardiogram unremarkable. No intervention was recommended at this time. Patient found to have elevated triglycerides. At discharge patient will continue with aspirin 81 mg daily, metoprolol 25 mg 1 pill twice daily, and fish oil 1000 mg 1 pill twice daily. Recommend to follow up with cardiology in 1-2 weeks to follow up this hospitalization. Patient may benefit with outpatient cardiac stress test to further evaluate. This can be done with the help of Cardiology. 3. Patient with history of COPD. Recommend to follow up with pulmonology to further evaluate and monitor. 4. Patient with chronic dizziness. Recommend follow up with ENT or neurology to further monitor and address. Diet: AHA Activity: Ad gem Time spent managing pt's care (in minutes): 55
[2019-12-09 17:39] VITALS: TEMP 97.6
== END 2019-12-09 19:00 | disposition home or self-care (01) ==
LOC: ER 12:56 → ERHOLD 17:48 → 2ND 20:02
PROVIDERS: ADMIT Family Medicine; ATTEND Family Medicine
DX: R07.9 Chest pain, unspecified (principal); I10 Essential (primary) hypertension; E78.5 Hyperlipidemia, unspecified; J44.9 Chronic obstructive pulmonary disease, unspecified; R42 Dizziness and giddiness; R06.02 Shortness of breath; Z20.828 Contact with and (suspected) exposure to other viral communicable diseases; Z87.891 Personal history of nicotine dependence
CPT/HCPCS: 96361; 93005; 93306; 85025 ×2; 80048 ×2; 36415 ×2; 83735 ×2; 80061; 80076; 84443; 84484 ×3; 84439; 83690; 83880; 71045; 96360; 96372; 99285; U0002; J1650 ×2; J7030 ×2; G0378 ×3

== ENCOUNTER 2020-01-29 10:15 | Day surgery (SDC) | payer BC ==
[2020-01-26 16:13] LABS: Absolute Lymphocytes (CBC) 2.7 K/uL (0.7-4.9); Basophils % 0.6 % (0-1.3); Hematocrit 45.7 % (39.6-49.0); Lymphocytes % 31.5 % (15.3-44.8); MPV 10.6 fL (7.6-11.3); RBC Red Blood Cell Count 5.04 M/uL (4.33-5.43)
[2020-01-26 16:17] LABS: Protime INR 1.03
--- OUTSIDE RECORDS SUMMARY | 2020-01-29 10:24 | XMS REPORT | Clinical Summary ---
:1965 Author Organization [facility] Address [address] [place] [address] Care Team Providers Name Role Phone Unavailable Primary Care Provider Unavailable Allergies No Known Allergies Medications Not on file Active Problems Not on file Social History Tobacco Use Types Packs/Day Years Used Date Never Assessed Sex Assigned at Date Recorded Not on file Job Start Date Occupation Industry Not on file Not on file Not on file Travel History Travel Start Travel End No recent travel history available. 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
--- OUTSIDE RECORDS SUMMARY | 2020-01-29 10:25 | XMS REPORT | Continuity of Care Document ---
:1965 Author Organization [facility] t Address [address] [place] [address] Care Team Providers Name Role Phone Unavailable Unavailable Unavailable Payers Payer Name Policy Type Policy Number Effective Date Expiration Date S ource Problems This patient has no known problems. Allergies, Adverse Reactions, Alerts Allergy Allergy Status Severity Reaction(s) Onset Inactive Treating Comm ents Source Name Type Date Date Clinician No Known DA Active U [facility] Allergie 07-03 Clear s 00:00: [place] 00 [facility] [place] Social History Social Habit Start Date Stop Date Quantity Comments Source Sex Assigned At [facility] Medications This patient has no known medications. Procedures This patient has no known procedures. Plan of Care Planned Activity Planned Date Details Comments Source Future Scheduled 2020-02-26 INFLUENZA VACCINE [place] [facility] Test 00:00:00 [code = INFLUENZA VACCINE] Future Scheduled 2017-08-21 COLONOSCOPY SCREENING [place] [facility] Test 00:00:00 [code = COLONOSCOPY SCREENING] Future Scheduled 2017-08-21 SHINGLES VACCINES [place] [facility] 00:00:00 (#1) [code = SHINGLES VACCINES (#1)] Results Test Description Test Time Test Comments Results Result [facility] e Comments - DUP EXTRACRANIAL 2018-07-05 Name: MIRTHA ERIC DOLORES 17:35:00 [facility] 1965 Age/S: 52 / M [id number] [place] Unit #: [id number] Loc: [place] [address] Phys: Mary Mauricio MD Acct: [id number] Dis Date: Status: ADM IN PHONE #: [phone] Exam Date: 07/05/2018 1310 FAX #: Reason: carotid bruit EXAMS: CPT: [id number] DUP EXTRACRANIAL DOLORES [id number] EXAMINATION: - DUP EXTRACRANIAL DOLORES. HISTORY: Carotid bruit, chest pain, hypertension, headache. LOCATION: S17. COMPARISON: None. FINDINGS: Rosado-scale, duplex and color Doppler images of the carotid systems are obtained bilaterally. Spectral analysis is also performed. (Validated velocity measurements with angiographic measurements ? Velocity criteria are extrapolated from diameter data as defined by the Society of Radiologists in Ultrasound Consensus Conference, Radiology 2003; 229; 340 ? 346.) There is intimal amount of atherosclerotic plaque at bilateral carotid bulbs. There is no significant stenosis appreciated on grayscale imaging. On pulse Doppler imaging there is no significant elevation of peak systolic velocity on either side. The peak systolic flow velocity within the right internal carotid artery is 63.6 cm/sec with ICA/CCA ratio of 0.7. The peak systolic flow velocity within the left internal carotid artery is 86.6 cm/sec with ICA/CCA ratio of 1.0. Both vertebral arteries are patent with appropriate antegrade direction of flow. IMPRESSION: Minimal bilateral atherosclerotic plaque without a hemodynamically significant stenosis on either side by the Society of radiologists in ultrasound consensus criteria. at 1738 Reported and signed by: Bert Quinn M.D. CC: Mary Mauricio MD; Marcelino Ugalde MD Technologist: Magi Posey, RT(R),RDMS(AB) Trnscb Date/Time: 07/05/2018 (7889) [email or web address] PAGE 1 Signed Report Name: MIRTHA ERIC [place] : 1965 Age/S: 52 / M [address] Unit #: [id number] Loc: [place] [address] Phys: Mary Mauricio MD Acct: [id number] Dis Date: Status: ADM IN PHONE #: [phone] Exam Date: 07/05/2018 1310 FAX #: Reason: carotid bruit EXAMS: CPT: [id number] DUP EXTRACRANIAL [place]OLORES [address] <Continued> Orig Print D/T: S: 07/05/2018 (1757) Probe: PAGE 2 Signed Report COMPREHENSIVE METABOLIC PANEL 2018-07-05 07:02:00 Test Item Value Reference Range Interpretation Comme nts SODIUM (test code = NA) 144 mmol/L 134-147 N POTASSIUM (test code = K) 4.4 mmol/L 3.4-5.0 N CHLORIDE (test code = CL) 111 mmol/L 100-108 H CARBON DIOXIDE (test code = CO2) 28 mmol/L 21-32 N ANION GAP (test code = GAP) 5.0 GAP calc 4.0-15.0 N GLUCOSE (test code = GLU) 104 MG/DL 70-110 N BLOOD UREA NITROGEN (test code = BUN) 14 MG/DL 7-18 N GLOMERULAR FILTRATION RATE (test code = GFR) >=60 max estimate estG FR >60 CREATININE (test code = CREAT) 0.8 MG/DL 0.8-1.3 N TOTAL PROTEIN (test code = PROT) 6.6 G/DL 6.4-8.2 N ALBUMIN (test code = ALB) 3.2 G/DL 3.4-5.0 L GLOBULIN (test code = GLOB) 3.4 GM/dL ALBUMIN/GLOBULIN RATIO (test code = A/G) 0.9 RATIO 1.2-2.2 L CALCIUM (test code = CA) 8.1 MG/DL 8.5-10.1 L BILIRUBIN TOTAL (test code = BILT) 0.20 MG/DL 0.2-1.2 N SGOT/AST (test code = AST) 17 Unit/L 15-37 N SGPT/ALT (test code = ALT) 41 Unit/L 12-78 N ALKALINE PHOSPHATASE TOTAL (test code = ALKP) 83 Unit/L 50-136 N [id number] 07:02:00 Test Item Value Reference Range Interpretation Comments PHOSPHOROUS (test code = PHOS) 3.2 MG/DL 2.5-4.9 N [id number] 07:02:00 Test Item Value Reference Range Interpretation Comments MAGNESIUM (test code = MAG) 2.1 MG/DL 1.8-2.4 N CBC W/AUTO [id number] 06:42:00 Test Item Value Reference Range Interpretation Comments WHITE BLOOD CELL (test code = 6.0 K/mm3 3.5-11.0 N WBC) RED BLOOD CELL (test code = RBC) 4.32 M/mm3 4.70-6.10 L HEMOGLOBIN (test code = HGB) 13.5 G/DL 12.3-15.9 N HEMATOCRIT (test code = HCT) 41.2 % 35.8-46.7 N MEAN CELL VOLUME (test code = 95.4 Fl 86.3-98.9 N MCV) MEAN CELL HGB (test code = MCH) 31.3 pg 28.9-34.4 N MEAN CELL HGB CONCETRATION (test 32.8 G/DL 32.1-34.5 N code = MCHC) RED CELL DISTRIBUTION WIDTH (test 13.3 SD 11.5-14.5 N code = RDW) PLATELET COUNT (test code = PLT) 164.0 K/mm3 150-450 N MEAN PLATELET VOLUME (test code = 11.90 fL 7.0-9.6 H MPV) NEUTROPHIL % (test code = NT%) 50.4 % 40-76 N LYMPHOCYTE % (test code = LY%) 38.2 % 20.5-51.1 N MONOCYTE % (test code = MO%) 8.9 % 1.7-9.3 N EOSINOPHIL % (test code = EO%) 2.3 % 0.0-6.0 N BASOPHIL % (test code = BA%) 0.2 % 0.0-2.0 N NEUTROPHIL # (test code = NT#) 3.04 K/mm3 1.8-7.6 N LYMPHOCYTE # (test code = LY#) 2.3 K/mm3 0.6-3.0 N MONOCYTE # (test code = MO#) 0.5 K/mm3 0.2-1.5 N EOSINOPHIL # (test code = EO#) 0.1 K/mm3 0.0-0.4 N BASOPHIL # (test code = BA#) 0.0 K/mm3 0.0-0.2 N MANUAL DIFF REQUIRED (test code = NO DIFF/SCN CRITERIA MDIFF) PROTHROMBIN [id number] 06:29:00 Test Item Value Reference Range Interpretation Comments PT PATIENT (test code = PTP) 10.7 SECONDS 9.3-12.9 N INTERNATIONAL NORMAL RATIO 0.93 INR Unit 0.8-1.2 N (test code = INR) - MRA HEAD W/O [id number] 12:10:00 FAX: Marcelino Ugalde MD [phone] Camps: PM St: ADM Name: MIRTHA ERICland : 1965 Age/S: 52/M [address] Unit #: [id number] Loc: [address] [place] [address] Phys: Marcelino Ugalde MD Acct: [id number] Dis Date: Status: ADM IN PHONE #: [phone] Exam Date: 07/04/2018 1016 FAX #: Reason: to r/o aneurysm EXAMS: CPT: [id number] MRA HEAD W/O CONT 71560 MRA HEAD WITHOUT CONTRAST HISTORY: Aneurysm COMPARISON: None TECHNIQUE: 3-D [id number] and MIP images were obtained through the [place]. Location: R16. FINDINGS: Limited exam due to patient motion. 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 The posterior communicating artery is not visualized, likely hypoplastic related to variant anatomy. Othe rwise the [place] is intact. No other large vessel occlusion. No definite aneurysm. 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 No definite aneurysm. at 1210 Reported and signed by: Rashawn Garcia M.D. CC: Marcelino Ugalde MD Technologist: Jt Musa RT(R)(MR); ... Transcribed Date/Time/By: 07/04/2018 (1210) :[email or web address] Orig Print D/T: S: 07/04/2018 (5923) PAGE 1 Signed Report- MRI BRAIN W/O CONTRAST 2018-07-04 11:21:00 FAX: Marcelino Ugalde MD [phone] Camps: PM St: ADM Name: MIRTHA ERIC [place] : 1965 Age/S: 52/M [id number] [address] Unit #: [id number] Loc: [address] [place] [address] Phys: Marcelino Ugalde MD Acct: [id number] Dis Date: Status: ADM IN PHONE #: [phone] Exam Date: 07/04/2018 1045 FAX #: Reason: to r/o aneurysm EXAMS: CPT: [id number] MRI BRAIN W/O CONTRAST 89716 MRI BRAIN WITHOUT CONTRAST HISTORY: Headache and dizziness. TECHNIQUE: Multiplanar and multiple pulse sequences were obtained throughout the brain without contrast. Location: R16. COMPARISON: Outside CT head on 07/02/18. FINDINGS: Diffusion weighted imaging shows no evidence of acute ischemia. T2-T3 and posterior fossa are unremarkable. No hemorrhage, mass, mass effect, hydrocephalus, midline shift or extra-axial fluid collection. No abnormal T2 or FLAIR signal noted within the white matter. The paranasal sinuses and mastoid air cells are clear. The globes are unremarkable. IMPRESSION: No evidence of acute ischemia. Unremarkable unenhanced MRI brain. at 1121 Reported and signed by: Rashawn Garcia M.D. CC: Marcelino Ugalde MD Technologist: Jt Musa, RT(R)(MR) Transcribed Date/Time/By: 07/04/2018 (1121) :[email or web address] Orig Print D/T: S: 07/04/2018 (2910) PAGE 1 Signed ReportCOMPREHENSIVE METABOLIC [id number] 06:39:00 Test Item Value Reference Range Interpretation Comments SODIUM (test code = NA) 145 mmol/L 134-147 N POTASSIUM (test code = 4.4 mmol/L 3.4-5.0 N K) CHLORIDE (test code = 112 mmol/L 100-108 H CL) CARBON DIOXIDE (test 24 mmol/L 21-32 N code = CO2) ANION GAP (test code = 9.0 GAP calc 4.0-15.0 N GAP) GLUCOSE (test code = 134 MG/DL 70-110 H GLU) BLOOD UREA NITROGEN 13 MG/DL 7-18 N (test code = BUN) GLOMERULAR FILTRATION >=60 max estimate >60 RATE (test code = GFR) estGFR CREATININE (test code = 0.9 MG/DL 0.8-1.3 N CREAT) TOTAL PROTEIN (test code 7.3 G/DL 6.4-8.2 N = PROT) ALBUMIN (test code = 3.7 G/DL 3.4-5.0 N ALB) GLOBULIN (test code = 3.6 GM/dL GLOB) ALBUMIN/GLOBULIN RATIO 1.0 RATIO 1.2-2.2 L (test code = A/G) CALCIUM (test code = CA) 8.9 MG/DL 8.5-10.1 N BILIRUBIN TOTAL (test 0.20 MG/DL 0.2-1.2 N code = BILT) SGOT/AST (test code = 14 Unit/L 15-37 L AST) SGPT/ALT (test code = 47 Unit/L 12-78 N ALT) ALKALINE PHOSPHATASE 105 Unit/L 50-136 N TOTAL (test code = ALKP) CBC W/AUTO [id number] 06:38:00 Test Item Value Reference Range Interpretation Comments WHITE BLOOD CELL (test code = 7.0 K/mm3 3.5-11.0 N WBC) RED BLOOD CELL (test code = RBC) 4.86 M/mm3 4.70-6.10 N HEMOGLOBIN (test code = HGB) 14.8 G/DL 12.3-15.9 N HEMATOCRIT (test code = HCT) 45.2 % 35.8-46.7 N MEAN CELL VOLUME (test code = 93.0 Fl 86.3-98.9 N MCV) MEAN CELL HGB (test code = MCH) 30.5 pg 28.9-34.4 N MEAN CELL HGB CONCETRATION (test 32.7 G/DL 32.1-34.5 N code = MCHC) RED CELL DISTRIBUTION WIDTH (test 13.5 SD 11.5-14.5 N code = RDW) PLATELET COUNT (test code = PLT) 201.0 K/mm3 150-450 N MEAN PLATELET VOLUME (test code = 12.60 fL 7.0-9.6 H MPV) NEUTROPHIL % (test code = NT%) 55.2 % 40-76 LYMPHOCYTE % (test code = LY%) 34.4 % 20.5-51.1 N MONOCYTE % (test code = MO%) 8.6 % 1.7-9.3 N EOSINOPHIL % (test code = EO%) 1.4 % 0.0-6.0 N BASOPHIL % (test code = BA%) 0.4 % 0.0-2.0 N NEUTROPHIL # (test code = NT#) 3.83 K/mm3 1.8-7.6 N LYMPHOCYTE # (test code = LY#) 2.4 K/mm3 0.6-3.0 N MONOCYTE # (test code = MO#) 0.6 K/mm3 0.2-1.5 N EOSINOPHIL # (test code = EO#) 0.1 K/mm3 0.0-0.4 N BASOPHIL # (test code = BA#) 0.0 K/mm3 0.0-0.2 N MANUAL DIFF REQUIRED (test code = NO DIFF/SCN CRITERIA MDIFF) - CT CHEST [id number] 22:55:00 Name: MIRTHA ERIC [facility] : 1965 Age/S: 52 / M [address] Unit #: [id number] Loc: [place] [address] Phys: Jason Botello MD Acct: [id number] Dis Date: Status: ADM IN PHONE #: [phone] Exam Date: 07/03/2018 2212 FAX #: Reason: CP, palpitations, +d-dimer. R/O PE EXAMS: CPT: [id number] CT CHEST W/CONTRAST 08504 Examination: CTA chest, PE protocol Indication: Chest pain, palpitations history of positive d-dimer Comparison: None available Location: P16 Technique: Multiple contiguous axial 1.25 mm images were obtained through the lung after administration of IVcontrast. Coronal and sagittal maximum intensity projection (MIPs) images were generated. One or more of the following dose reduction techniques were used: Automated exposure control,adjustment of the mA and/or kV according to patient size, and/or utilization of iterative reconstruction technique. Findings: Adequate contrast bolus. No evidence of acute pulmonary embolism down to the level of the subsegmental pulmonary arteries. These findings were confirmed on MPR and MIP images. No underlying lung parenchymal abnormality. No pleural effusion of pleural thickening. There are no enlarged mediastinal, hilar, supraclavicular or axillary lymph nodes by CT criteria. Heart size is normal. There is no pericardial effusion or thickening. The aorta is normal in caliber. Although the evaluation of the aortic root is limited in the absence of gating, the remainder of the aorta remains unremarkable with the exception of aortic calcifications. Limited early arterial phase evaluation of the upper abdomen is unr emarkable. No suspicious or destructive osseous lesions. Impression: No evidence of acute pulmonary was in the level of the proximal PAGE 1 Signed Report (CONTINUED) Name: MIRTHA ERIC [facility] : 1965 Age/S: 52 / M [address] [facility] [place] Unit #: [id number] Loc: [place] [address] Phys: Nneka Botello MD Acct: [id number] Dis Date: Status: ADM IN PHONE #: [phone] Exam Date: 07/03/2018 0745 FAX #: Reason: CP, palpitations, +d-dimer. R/O PE EXAMS: CPT: [id number] CT CHEST W/CONTRAST 50888 <Continued> segmental pulmonary arteries on the left, evaluation of the right is limited secondary to streak artifact from contrast within the IVC, no evidence of acute pulmonary embolism is seen on the left to the levelof the proximal lobar pulmonary arteries. Diffuse esophageal thickening is noted throughout at 1078 Reported and signed by: Carol Bar M.D. CC: Marcelino Ugalde MD; Jason Botello MD Technologist:Salty Sahu, RT(R)(CT); .. CTDI: DLP: Trnscb Date/Time: 07/03/2018 (166) [email or web address] Orig Print D/T:S: 07/03/2018 (4226) CTDI: DLP: PAGE 2 Signed ReportRULE OUT [place] [id number] 14:27:00 Test Item Value Reference Range Interpretation Comments CREATINE KINASE 52 Unit/L 26-192 N (CK) (test code = CK) TROPONIN-I (test < 0.015 NG/ML 0.000-0.045 N Negative: </= 0.045 code = TROPI) Positive: >/= 0.046 Correlation wit h serial results, other cardiac markers , and clinical findin gs is necessary to de termine the clinical significance of this result. Quantit ative results using different methodologies s hould not be compared to one another as nume rical results may franco yby method. - XR CHEST 1 [id number] 12:14:00 Name: MIRTHA ERIC [place] : 1965 Age/S: 52 / M [address] [address] Unit #: [id number] Loc: [place] [address] Phys: Marcelino Ugalde MD Acct: [id number] Dis Date: Status: ADM IN PHONE #: [phone] Exam Date: 07/03/2018 1120 FAX #: Reason: SOB EXAMS: CPT: [id number] XR CHEST 1 V 39535 Fluoro Time: DAP (Gy m2): Air Kerma (mGy): Site ID: [id number] HISTORY: Chest pain FINDINGS: The lungs are clear and normally expanded. The heart and pulmonary vasculature is normal. Osseous structures are unremarkable. IMPRESSION: Negative chest X-ray. at 1214 Reported and signed by: Niki Chin M.D. CC: Marcelino Ugalde MD PAGE 1 Signed Report Name: MIRHTA ERIC [place] : 1965 Age/S: 52 / M [address] [address] [place] Unit #: [id number] Loc: [place] [address] Phys: Marcelino Ugalde MD Acct: [id number] Dis Date: Status: ADM IN PHONE #: [phone] Exam Date: 07/03/2018 1127 FAX #: Reason: SOB EXAMS: CPT: [id number] XR CHEST 1 V 10296 Fluoro Time: DAP (Gy m2): Air Kerma (mGy): <Continued> Technologist: Jen Tate RT(R) Trnscb Date/Time: 07/03/2018 (5316) [email or web address] Orig Print D/T: S: 07/03/2018 (9202) PAGE 2 Signed ReportRULE OUT [place] [id number] 06:03:00 Test Item Value Reference Range Interpretation Comments CREATINE KINASE 68 Unit/L 26-192 N (CK) (test code = CK) TROPONIN-I (test < 0.015 NG/ML 0.000-0.045 N Negative: </= 0.045 code = TROPI) Positive: >/= 0.046 Correlation wit h serial results, other cardiac markers , and clinical findin gs is necessary to de termine the clinical significance of this result. Quantit ative results using different methodologies s hould not be compared to one another as nume rical results may franco yby method. CBC W/AUTO [id number] 03:40:00 Test Item Value Reference Range Interpretation Comments WHITE BLOOD CELL (test code = 9.4 K/mm3 3.5-11.0 N WBC) RED BLOOD CELL (test code = RBC) 4.77 M/mm3 4.70-6.10 N HEMOGLOBIN (test code = HGB) 14.6 G/DL 12.3-15.9 N HEMATOCRIT (test code = HCT) 43.5 % 35.8-46.7 N MEAN CELL VOLUME (test code = 91.2 Fl 86.3-98.9 N MCV) MEAN CELL HGB (test code = MCH) 30.6 pg 28.9-34.4 N MEAN CELL HGB CONCETRATION (test 33.6 G/DL 32.1-34.5 N code = MCHC) RED CELL DISTRIBUTION WIDTH (test 13.3 SD 11.5-14.5 N code = RDW) PLATELET COUNT (test code = PLT) 208.0 K/mm3 150-450 N MEAN PLATELET VOLUME (test code = 12.60 fL 7.0-9.6 H MPV) NEUTROPHIL % (test code = NT%) 63.8 % 40-76 N LYMPHOCYTE % (test code = LY%) 29.3 % 20.5-51.1 N MONOCYTE % (test code = MO%) 5.4 % 1.7-9.3 N EOSINOPHIL % (test code = EO%) 1.2 % 0.0-6.0 N BASOPHIL % (test code = BA%) 0.3 % 0.0-2.0 N NEUTROPHIL # (test code = NT#) 6.01 K/mm3 1.8-7.6 N LYMPHOCYTE # (test code = LY#) 2.8 K/mm3 0.6-3.0 N MONOCYTE # (test code = MO#) 0.5 K/mm3 0.2-1.5 N EOSINOPHIL # (test code = EO#) 0.1 K/mm3 0.0-0.4 N BASOPHIL # (test code = BA#) 0.0 K/mm3 0.0-0.2 N MANUAL DIFF REQUIRED (test code = NO DIFF/SCN CRITERIA MDIFF) [id number] 03:29:00 Test Item Value Reference Range Interpretation Comments D-DIMER (test code = DDIMER) 518 ng/mLFEU 215-500 COMPREHENSIVE METABOLIC [id number] 03:21:00 Test Item Value Reference Range Interpretation Comments SODIUM (test code = NA) 140 mmol/L 134-147 N POTASSIUM (test code = 3.6 mmol/L 3.4-5.0 N K) CHLORIDE (test code = 106 mmol/L 100-108 N CL) CARBON DIOXIDE (test 24 mmol/L 21-32 N code = CO2) ANION GAP (test code = 10.0 GAP calc 4.0-15.0 N GAP) GLUCOSE (test code = 149 MG/DL 70-110 H GLU) BLOOD UREA NITROGEN 16 MG/DL 7-18 N (test code = BUN) GLOMERULAR FILTRATION >=60 max estimate >60 RATE (test code = GFR) estGFR CREATININE (test code = 1.1 MG/DL 0.8-1.3 N CREAT) TOTAL PROTEIN (test code 7.1 G/DL 6.4-8.2 N = PROT) ALBUMIN (test code = 3.5 G/DL 3.4-5.0 N ALB) GLOBULIN (test code = 3.6 GM/dL GLOB) ALBUMIN/GLOBULIN RATIO 1.0 RATIO 1.2-2.2 L (test code = A/G) CALCIUM (test code = CA) 8.1 MG/DL 8.5-10.1 L BILIRUBIN TOTAL (test 0.20 MG/DL 0.2-1.2 N code = BILT) SGOT/AST (test code = 23 Unit/L 15-37 N AST) SGPT/ALT (test code = 55 Unit/L 12-78 N ALT) ALKALINE PHOSPHATASE 101 Unit/L 50-136 N TOTAL (test code = ALKP) LIPID PROFILE (CORONARY RISK)2018-07-03 03:05:00 Test Item Value Reference Range Interpretation Comments TRIGLYCERIDES (test code = TRIG) 654 MG/DL 0-150 H CHOLESTEROL (test code = CHOL) 237 MG/DL 133-200 H CHOLESTEROL/HDL RATIO (test code = 6.97 RATIO >0 CHOLHDL) HDL CHOLESTEROL (test code = HDL) 34 MG/DL 40-59 L NON-HDL CHOLESTEROL (test code = 203 mg/dL <130 H NHDL) LIPOPROTEIN LDL (test code = LDL) 138 MG/DL 0-129 H LDL/HDL (test code = LDL/HDL) 4.05 Ratio 1.48-3.22 Avg H [id number] 03:05:00 Test Item Value Reference Range Interpretation Comments PHOSPHOROUS (test code = PHOS) 3.1 MG/DL 2.5-4.9 N RULE OUT KS [id number] 03:05:00 Test Item Value Reference Range Interpretation Comments CREATINE KINASE 78 Unit/L 26-192 N (CK) (test code = CK) TROPONIN-I (test < 0.015 NG/ML 0.000-0.045 N Negative: </= 0.045 code = TROPI) Positive: >/= 0.046 Correlation wit h serial results, other cardiac markers , and clinical findin gs is necessary to de termine the clinical significance of this result. Quantit ative results using different methodologies s hould not be compared to one another as nume rical results may franco yby method. [id number] 03:05:00 Test Item Value Reference Range Interpretation Comments MAGNESIUM (test code = MAG) 2.0 MG/DL 1.8-2.4 N
[2020-01-29] MEDS ORDERED: NA CHLORIDE 0.9% 0 ML ONE (10:44)
[2020-01-29] MEDS ORDERED: NA CHLORIDE 0.9% 500 ML ONE (10:46)
[2020-01-29] MEDS ORDERED: HEPA 1000U/500MLS 2,000 UNIT/1,000 ML BAG IV ONE (10:56)
[2020-01-29] MEDS ORDERED: MIDAZOLAM HCL 2 MG/2 ML INJ ONE ×2 (11:27→11:53)
[2020-01-29] MEDS ORDERED: HEPARIN 5000 UNIT/ML 1 ML VIAL ONE (11:27)
[2020-01-29] MEDS ORDERED: ATROPINE SULF 1 MG/10 ML SYR IV ONE (11:28)
[2020-01-29] MEDS ORDERED: NITROGLYCERIN/D5W 25 MG/250 ML BTL IV ONE (11:28)
[2020-01-29] MEDS ORDERED: NITROGLYCERIN 100 MCG/ML SYR (for cath lab use only) IV ONE (11:28)
[2020-01-29] MEDS ORDERED: FENTANYL CITR 100 MCG/2 ML ONE (11:28)
[2020-01-29] MEDS ORDERED: NICARDIPINE HCL 25 MG/10 ML IV ONE (11:28)
[2020-01-29] MEDS ORDERED: HEPARIN 10,000 UNIT/10 ML VIAL IV ONE (11:28)
[2020-01-29] MEDS ORDERED: ACETAMINOPHEN 325 MG TABLET ONE (14:59)
[2020-01-29 17:13] VITALS: BP 128/83; TEMP 96.8; O2SAT 98
--- NOTE | 2020-01-30 11:13 | EKG ---
Test Date: 2020-01-29 Test Time: 10:36:15 Delivery Room Supervisor: RODRI MEASUREMENT RESULTS: Intervals: Rate: 77 MS: 172 QRSD: 90 QT: 374 QTc: 423 [place]: P: 49 MS: 172 QRS: 33 T: 58 INTERPRETIVE STATEMENTS: Normal sinus rhythm Normal ECG Compared to ECG 12/08/2019 13:29:23 No significant changes Electronically Signed On 01-30-20 11:10:30 CDT by Torrey Moulton
== END 2020-01-29 15:34 | disposition home health service (06) ==
LOC: CCL 10:15
PROVIDERS: ATTEND Internal Medicine
DX: I20.0 Unstable angina (principal); R00.2 Palpitations; I10 Essential (primary) hypertension; E78.5 Hyperlipidemia, unspecified; Z20.828 Contact with and (suspected) exposure to other viral communicable diseases; Z82.49 Family history of ischemic heart disease and other diseases of the circulatory system
CPT/HCPCS: 93005; 85025; 80048; 36415; 85610; 85730; 93458; U0002; C1893; J1644 ×2; J2250 ×2; J3010; J7040

== ENCOUNTER 2021-12-30 07:07 | Emergency (ER) | payer BC, SELFPAY ==
[2021-12-30 07:43] LABS: Absolute Lymphocytes (CBC) 2.5 K/uL (0.7-4.9); Hematocrit 41.5 % (39.6-49.0); Lymphocytes % 37.2 % (15.3-44.8); MCV 89.9 fL (80-100); MPV 10.1 fL (7.6-11.3); RBC Red Blood Cell Count 4.62 M/uL (4.33-5.43)
[2021-12-30 08:03] LABS: Troponin High Sensitivity 5.2 pg/mL (<58.9)
[2021-12-30 08:04] LABS: Potassium 4.2 mmol/L (3.5-5.1)
--- NOTE | 2021-12-30 08:28 | RAD REPORT ---
EXAM DESCRIPTION: RAD - Chest Single View - 12/30/2021 7:44 am CLINICAL HISTORY: CHEST PAIN Chest pain. COMPARISON: Chest Single View dated 12/08/2019; Chest Pa And Lat (2 Views) dated 05/25/2016 FINDINGS: Portable technique limits examination quality. The lungs are mildly emphysematous but grossly clear. The heart is upper limit of normal in size. No displaced fractures. IMPRESSION: Mild COPD.
--- NOTE | 2021-12-30 10:50 | ER ---
Nurse's Notes [facility] Name: Amandeep Emerson Age: 56 yrs Sex: Male : 1965 Arrival Date: 12/30/2021 Time: 07:08 Bed 5 Private MD: Russell Grayson Diagnosis: Chest pain, unspecified Presentation: 12/30 07:14 Chief complaint: Patient states: for past 3-4 weeks has been waking up in the middle of iw night with mid sternal chest pain and SOB, gets better as the day goes on, hx of COPD, pain is now 2/10. Coronavirus screen: Client presents with at least one sign or symptom that may indicate coronavirus-19. Ebola Screen: Patient negative for fever greater than or equal to 101.5 degrees Fahrenheit, and additional compatible Ebola Virus Disease symptoms Patient denies exposure to infectious person. Patient denies travel to an Ebola-affected area in the 21 days before illness onset. No symptoms or risks identified at this time. Initial Sepsis Screen: Does the patient meet any 2 criteria? No. Patient's initial sepsis screen is negative. Does the patient have a suspected source of infection? No. Patient's initial sepsis screen is negative. Risk Assessment: Do you want to hurt yourself or someone else? Patient reports no desire to harm self or others. Onset of symptoms was December 04, 2021. 07:14 Method Of Arrival: Ambulatory iw 07:14 Acuity: JOCELYN 3 iw Historical: - Allergies: 07:15 No Known Allergies; iw - Home Meds: 07:17 metoprolol tartrate 100 mg Oral tab 1 tab 2 times per day [Active]; Tramadol Oral iw [Active]; - PMHx: 07:15 Hypertension; High Cholesterol; Headaches; COPD; iw - PSHx: 07:17 hand; iw - Immunization history:: Client reports receiving the 1st dose of the Covid vaccine. - Social history:: Smoking status: Patient/guardian denies using tobacco, the patient reports quitting approximately 5 years ago. Screenin:29 Abuse screen: Denies threats or abuse. Nutritional screening: No deficits noted. vg1 Tuberculosis screening: No symptoms or risk factors identified. Fall Risk No fall in past 12 months (0 pts). No secondary diagnosis (0 pts). IV access (20 points). Ambulatory Aid- None/Bed Rest/Nurse Assist (0 pts). Gait- Normal/Bed Rest/Wheelchair (0 pts) Mental Status- Oriented to own ability (0 pts). Total Sanchez Fall Scale indicates No Risk (0-24 pts). Assessment: 07:29 General: Appears in no apparent distress. comfortable, Behavior is calm, cooperative. vg1 Pain: Complains of pain in chest Pain radiates to left arm Pain currently is 4 out of 10 on a pain scale. Pain began 3-4 Weeks Alleviated by stated "when I move around throughout the day the pain will subside but its still there". Neuro: Level of Consciousness is awake, alert, obeys commands, Oriented to person, place, time, situation. Cardiovascular: Patient's skin is warm and dry. Respiratory: Airway is patent Respiratory effort is even, unlabored. GI: Patient currently denies nausea, vomiting. : No signs and/or symptoms were reported regarding the genitourinary system. EENT: No signs and/or symptoms were reported regarding the EENT system. Derm: Skin is intact, Skin is pink, warm \\T\\ dry. Musculoskeletal: Circulation, motion, and sensation intact. 08:27 Reassessment: Patient appears in no apparent distress at this time. No changes from vg1 previously documented assessment. Patient and/or family updated on plan of care and expected duration. Pain level reassessed. Patient is alert, oriented x 3, equal unlabored respirations, skin warm/dry/pink. 09:32 Reassessment: Patient appears in no apparent distress at this time. Patient and/or vg1 family updated on plan of care and expected duration. Pain level reassessed. Patient is alert, oriented x 3, equal unlabored respirations, skin warm/dry/pink. pt stated sudden onsets of dizziness that comes and goes; provider notified. 10:38 Reassessment: Patient appears in no apparent distress at this time. No changes from vg1 previously documented assessment. Patient and/or family updated on plan of care and expected duration. Pain level reassessed. Patient is alert, oriented x 3, equal unlabored respirations, skin warm/dry/pink. Vital Signs: 07:14 BP 140 / 89; Pulse 73; Resp 18; Temp 98(TE); Pulse Ox 98% on R/A; Weight 113.4 kg; iw Height 6 ft. 2 in. (187.96 cm); Pain 2/10; 07:31 BP 135 / 94; Pulse 61; Resp 17; Pulse Ox 98% on R/A; vg1 08:00 BP 122 / 80; Pulse 63; Pulse Ox 96% on R/A; Pain 0/10; jg9 08:30 BP 109 / 84; Pulse 67; Pulse Ox 98% on R/A; jg9 09:00 BP 130 / 95; Pulse 65; Resp 17; Pulse Ox 98% on R/A; vg1 10:00 BP 127 / 93; Pulse 63; Resp 16; Pulse Ox 97% on R/A; vg1 11:00 BP 136 / 98; Pulse 67; Resp 17 S; Pulse Ox 97% on R/A; jg9 07:14 Body Mass Index 32.10 (113.40 kg, 187.96 cm) iw ED Course: 07:08 Patient arrived in ED. as 07:08 Russell Grayson MD is Private Physician. as 07:15 Triage completed. iw 07:16 Arm band placed on. iw 07:19 Bebo Rosa MD is Attending Physician. kdr 07:21 Xena Gerber, RN is Primary Nurse. vg1 07:29 Patient has correct armband on for positive identification. Client placed on continuous vg1 cardiac and pulse oximetry monitoring. NIBP monitoring applied. 07:29 Patient maintains SpO2 saturation greater than 95% on room air. vg1 07:36 Basic Metabolic Panel Sent. kc6 07:36 CBC with Diff Sent. kc6 07:36 Inserted saline lock: 20 gauge in right antecubital area, using aseptic technique. kc6 Blood collected. 07:37 Troponin HS Sent. kc6 07:45 XRAY Chest (1 view) In Process Unspecified. EDMS 08:55 No apparent distress. Resting quietly. Awaiting lab results, Awaiting radiology jg9 results. Awaiting disposition. 10:49 Russell Grayson MD is Referral Physician. kdr 11:24 No provider procedures requiring assistance completed. jg9 11:25 IV discontinued. jg9 Administered Medications: No medications were administered Medication: 07:29 VIS not applicable for this client. vg1 Outcome: 10:49 Discharge ordered by . kdr 11:05 Patient left the ED. jg9 11:25 Discharged to home ambulatory. jg9 11:25 Condition: stable 11:25 Discharge instructions given to patient, Instructed on discharge instructions, follow up and referral plans. Demonstrated understanding of instructions, follow-up care, Prescriptions given X 1. Signatures: Dispatcher [employer] Bebo Prater MD MD kdr Martinez, Amelia as Williams, Irene, RN RN iw Garcia, RANDY Mccallum RN vg1 Ashley Caballero RN RN jg9 Danay Richardson6
--- NOTE | 2021-12-30 10:50 | EDPHYS ---
Physician Documentation [facility] Name: Amandeep Emerson Age: 56 yrs Sex: Male : 1965 Arrival Date: 12/30/2021 Time: 07:08 Bed 5 Private MD: Russell Grayson ED Physician Bebo Rosa HPI: 12/30 07:56 This 56 yrs old Male presents to ER via Ambulatory with complaints of Chest Pain. kdr 07:56 The patient or guardian reports chest pain that is located primarily in the substernal kdr area, anterior chest wall, bilaterally, chest diffusely, Patient states over the last 3 weeks he is awakened often in the morning with diffuse chest discomfort. The pain is primarily been in his mid central chest but it does move around somewhat into both left lateral axillary area. Onset: suddenly, just prior to arrival, today. The pain radiates to Lateral left chest area and axillary area. Associated signs and symptoms: Pertinent positives: diaphoresis, nausea, shortness of breath, Patient states that he has chronic shortness of breath secondary to his COPD. He also states he had very very slight nausea and diaphoresis with the discomfort.. The chest pain is described as aching, dull, a pressure. Duration: The patient or guardian reports multiple episodes, that are intermittent, that wax and wane, with no pattern. Modifying factors: The symptoms are alleviated by nothing. the symptoms are aggravated by nothing. Severity of pain: At its worst the pain was mild moderate just prior to arrival, in the emergency department the pain is unchanged. The patient has not experienced similar symptoms in the past. The patient has not recently seen a physician, Patient had a cardiac cath roughly a year ago with Dr. Larson. He indicated that there was no significant pathology found at the time. Historical: - Allergies: 07:15 No Known Allergies; iw - Home Meds: 07:17 metoprolol tartrate 100 mg Oral tab 1 tab 2 times per day [Active]; Tramadol Oral iw [Active]; - PMHx: 07:15 Hypertension; High Cholesterol; Headaches; COPD; iw - PSHx: 07:17 hand; iw - Immunization history:: Client reports receiving the 1st dose of the Covid vaccine. - Social history:: Smoking status: Patient/guardian denies using tobacco, the patient reports quitting approximately 5 years ago. ROS: 07:56 Constitutional: Negative for fever, chills, and weight loss, Eyes: Negative for injury, kdr pain, redness, and discharge, ENT: Negative for injury, pain, and discharge, Neck: Negative for injury, pain, and swelling, Respiratory: Negative for shortness of breath, cough, wheezing, and pleuritic chest pain, Abdomen/GI: Negative for abdominal pain, nausea, vomiting, diarrhea, and constipation, Back: Negative for injury and pain, : Negative for injury, bleeding, discharge, and swelling, MS/Extremity: Negative for injury and deformity, Skin: Negative for injury, rash, and discoloration, Neuro: Negative for headache, weakness, numbness, tingling, and seizure activity. Psych: Negative for depression, anxiety, suicide ideation, homicidal ideation, and hallucinations, Allergy/Immunology: Negative for hives, rash, and allergies, Endocrine: Negative for neck swelling, polydipsia, polyuria, polyphagia, and marked weight changes, Hematologic/Lymphatic: Negative for swollen nodes, abnormal bleeding, and unusual bruising. 07:56 Cardiovascular: Positive for chest pain, Negative for edema, orthopnea, palpitations, paroxysmal nocturnal dyspnea. Exam: 07:31 ECG was reviewed by the Attending Physician. kdr 07:56 Constitutional: This is a well developed, well nourished patient who is awake, alert, kdr and in no acute distress. Head/Face: Normocephalic, atraumatic. Eyes: Pupils equal round and reactive to light, extra-ocular motions intact. Lids and lashes normal. Conjunctiva and sclera are non-icteric and not injected. Cornea within normal limits. Periorbital areas with no swelling, redness, or edema. Neck: Trachea midline, no thyromegaly or masses palpated, and no cervical lymphadenopathy. Supple, full range of motion without nuchal rigidity, or vertebral point tenderness. No Meningismus. Chest/axilla: Normal chest wall appearance and motion. Nontender with no deformity. No lesions are appreciated. Cardiovascular: Regular rate and rhythm with a normal S1 and S2. No gallops, murmurs, or rubs. Normal PMI, no JVD. No pulse deficits. Respiratory: Lungs have equal breath sounds bilaterally, clear to auscultation and percussion. No rales, rhonchi or wheezes noted. No increased work of breathing, no retractions or nasal flaring. Abdomen/GI: Soft, non-tender, with normal bowel sounds. No distension or tympany. No guarding or rebound. No evidence of tenderness throughout. Back: No spinal tenderness. No costovertebral tenderness. Full range of motion. Skin: Warm, dry with normal turgor. Normal color with no rashes, no lesions, and no evidence of cellulitis. MS/ Extremity: Pulses equal, no cyanosis. Neurovascular intact. Full, normal range of motion. Neuro: Awake and alert, GCS 15, oriented to person, place, time, and situation. Cranial nerves II-XII grossly intact. Motor strength 5/5 in all extremities. Sensory grossly intact. Cerebellar exam normal. Normal gait. Psych: Awake, alert, with orientation to person, place and time. Behavior, mood, and affect are within normal limits. Vital Signs: 07:14 BP 140 / 89; Pulse 73; Resp 18; Temp 98(TE); Pulse Ox 98% on R/A; Weight 113.4 kg; iw Height 6 ft. 2 in. (187.96 cm); Pain 2/10; 07:31 BP 135 / 94; Pulse 61; Resp 17; Pulse Ox 98% on R/A; vg1 08:00 BP 122 / 80; Pulse 63; Pulse Ox 96% on R/A; Pain 0/10; jg9 08:30 BP 109 / 84; Pulse 67; Pulse Ox 98% on R/A; jg9 09:00 BP 130 / 95; Pulse 65; Resp 17; Pulse Ox 98% on R/A; vg1 10:00 BP 127 / 93; Pulse 63; Resp 16; Pulse Ox 97% on R/A; vg1 11:00 BP 136 / 98; Pulse 67; Resp 17 S; Pulse Ox 97% on R/A; jg9 07:14 Body Mass Index 32.10 (113.40 kg, 187.96 cm) iw MDM: 07:56 Data reviewed: vital signs, nurses notes, lab test result(s), EKG, radiologic studies. kdr 10:49 Patient medically screened. kdr 12/30 07:19 Order name: Basic Metabolic Panel; Complete Time: 09:20 kdr 12/30 07:19 Order name: CBC with Diff kdr 12/30 07:19 Order name: Troponin HS; Complete Time: 09:20 kdr 12/30 07:19 Order name: XRAY Chest (1 view); Complete Time: 09:20 kdr 12/30 09:20 Order name: Troponin High Sensitivity: Draw 2 hours after initial draw; Complete Time: kdr 10:49 12/30 10:52 Order name: CBC Smear Scan EDCT 12/30 07:19 Order name: EKG; Complete Time: 07:20 kdr 12/30 07:19 Order name: Cardiac monitoring; Complete Time: 07:29 kdr 12/30 07:19 Order name: EKG - Nurse/Tech; Complete Time: 07:29 kdr 12/30 07:19 Order name: IV Saline Lock; Complete Time: 07:36 kdr 12/30 07:19 Order name: Labs collected and sent; Complete Time: 07:36 kdr 12/30 07:19 Order name: O2 Per Protocol; Complete Time: 07:29 kdr 12/30 07:19 Order name: O2 Sat Monitoring; Complete Time: :29 kdr EC:31 Rate is 61 beats/min. Rhythm is regular, Normal Sinus Rhythm with No ectopy. QRS [place] kdr is Normal. PA interval is normal. QRS interval is normal. QT interval is normal. Clinical impression: Normal ECG. Administered Medications: No medications were administered Disposition Summary: 12/30/21 10:49 Discharge Ordered Location: Home kdr Problem: an ongoing problem kdr Symptoms: have improved kdr Condition: Stable kdr Diagnosis - Chest pain, unspecified kdr Followup: kdr - With: Russell Grayson MD - When: 2 - 3 days - Reason: If symptoms return, Further diagnostic work-up, Recheck today's complaints, Continuance of care, Re-evaluation by your physician Discharge Instructions: - Discharge Summary Sheet kdr - Nonspecific Chest Pain, Adult, [id number] kdr Forms: - Medication Reconciliation Form kdr - Thank You Letter kdr Prescriptions: - Pepcid 20 mg Oral Tablet - take 1 tablet by ORAL route every 12 hours for 5 days; 10 tablet; Refills: 0, kdr Product Selection Permitted Signatures: Dispatcher [employer] EDMS Bebo Rosa MD MD kdr Patience Silver RN RN iw
[2021-12-30 10:52] LABS: Blood Morphology Comment NOT SEEN (NOT SEEN); Platelet Estimate ADEQ; Platelets, Giant FEW PRESENT; White Blood Cell Scan OK (OK)
[2021-12-30 11:30] VITALS: TEMP 98
[2021-12-30 11:59] VITALS: BP 127/93; O2SAT 97
--- NOTE | 2022-01-02 13:52 | EKG ---
Test Date: 2021-12-30 Test Time: 07:23:14 Barrel Reamer: WIL MEASUREMENT RESULTS: Intervals: Rate: 61 PA: 190 QRSD: 94 QT: 412 QTc: 414 [place]: P: 48 PA: 190 QRS: 15 T: 84 INTERPRETIVE STATEMENTS: Normal sinus rhythm Normal ECG Compared to ECG 01/29/2020 10:36:15 No significant changes Electronically Signed On 01-02-22 13:47:56 CDT by Justo Roca
== END 2021-12-30 11:05 | disposition home or self-care (01) ==
LOC: ER 07:07
DX: R07.89 Other chest pain (principal); J44.9 Chronic obstructive pulmonary disease, unspecified; I10 Essential (primary) hypertension; E78.00 Pure hypercholesterolemia, unspecified; Z87.891 Personal history of nicotine dependence
CPT/HCPCS: 36415; 71045; 80048; 84484; 85025; 93005; 99284

== ENCOUNTER 2023-01-04 02:24 | Observation (INO) | payer OTHER ==
--- OUTSIDE RECORDS SUMMARY | 2023-01-04 02:26 | XMS REPORT | Continuity of Care Document ---
:1965 Author Organization [facility] t Address [address] [address] [place] [address] Care Team Providers Name Role Phone Unavailable Unavailable Unavailable Payers Payer Name Policy Type Policy Number Effective Date Expiration Date S ource Problems This patient has no known problems. Allergies, Adverse Reactions, Alerts Allergy Allergy Status Severity Reaction(s) Onset Inactive Treating Comm ents Source Name Type Date Date Clinician No Known DA Active [facility] Allergie 07-03 Clear s 00:00: [place] [facility] Social History Social Habit Start Date Stop Date Quantity Comments Source Gender identity [facility] Sexual orientation Method [facility] Sex Assigned At [birth year] [facility] 00:00:00 00:00:00 Smoking Status Start Date Stop Date Source Tobacco smoking consumption unknown [facility] Medications This patient has no known medications. Procedures This patient has no known procedures. Plan of Care Planned Activity Planned Date Details Comments Source Future Scheduled 2022-12-27 Screening for [facility] Test 10:12:05 malignant neoplasm of colon (procedure) [code = 174836395] Future Scheduled 2022-12-27 Screening for [facility] Test 10:12:05 malignant neoplasm of colon (procedure) [code = 411890018] Future Scheduled 2022-12-27 SHINGLES VACCINES Method [facility] Test 10:12:05 (1 of 2) [code = SHINGLES VACCINES (1 of 2)] Future Scheduled 2022-12-27 INFLUENZA VACCINE [facility] Test 10:12:05 [code = INFLUENZA VACCINE] Future Scheduled 2022-12-27 Screening for [facility] Test 10:12:05 malignant neoplasm of colon (procedure) [code = 215846344] Future Scheduled 2022-12-27 Screening for [facility] Test 10:12:05 malignant neoplasm of colon (procedure) [code = 998487729] Future Scheduled 2022-12-27 Screening for [facility] Test 10:12:05 malignant neoplasm of colon (procedure) [code = 363414714] Future Scheduled 2022-12-27 COVID-[address] [facility] Test 10:12:05 (#1) [code = COVID-19 VACCINE (#1)] Results Test Description Test Time Test Comments Results Result [facility] e Comments - DUP EXTRACRANIAL 2018-07-05 Name: MIRTHA ERIC DOLORES 17:35:00 [facility] : 1965 Age/S: 52 / M [address] Unit #: [id number] Loc: [place] [address] Phys: Mary Mauricio MD Acct: [id number] Dis Date: Status: ADM IN PHONE #: [phone] Exam Date: 07/05/2018 1310 FAX #: Reason: carotid bruit EXAMS: CPT: [id number] DUP EXTRACRANIAL DOLORES 23710 EXAMINATION: - DUP EXTRACRANIAL DOLORES. HISTORY: Carotid [...] of radiologists in ultrasound consensus criteria. at 1733 Reported and signed by: Bert Quinn M.D. CC: Mary Mauricio MD; Marcelino Ugalde MD Technologist: Magi Posey, RT(R),RDMS(AB) Trnscb Date/Time: 07/05/2018 (5672) [email or web address] PAGE 1 Signed Report Name: MIRTHA ERICland : 1965 Age/S: 52 / M [address] Unit #: [id number] Loc: [place] [address] Phys: Mary Mauricio MD Acct: [id number] Dis Date: Status: ADM IN PHONE #: [phone] Exam Date: 07/05/2018 1310 FAX #: Reason: carotid bruit EXAMS: CPT: [id number] DUP EXTRACRANIAL DOLORES 68292 (Continued) Orig Print D/T: S: 07/05/2018 (1736) Probe: PAGE 2 Signed Report COMPREHENSIVE METABOLIC [...] code = ALKP) 83 Unit/L 50-136 N [id number] 07:02:00 Test Item Value Reference Range Interpretation Comments PHOSPHOROUS (test code = PHOS) 3.2 MG/DL 2.5-4.9 N [id number] 07:02:00 Test Item Value Reference Range Interpretation Comments MAGNESIUM (test code = MAG) 2.1 MG/DL 1.8-2.4 N CBC W/AUTO [id number] 06:42:00 Test Item Value Reference Range Interpretation [...] code = NO DIFF/SCN CRITERIA MDIFF) PROTHROMBIN [id number] 06:29:00 Test Item Value Reference Range Interpretation Comments PT PATIENT (test code = PTP) 10.7 SECONDS 9.3-12.9 N INTERNATIONAL NORMAL RATIO 0.93 INR Unit 0.8-1.2 N (test code = INR) - MRA HEAD W/O [id number] 12:10:00 FAX: Marcelino Ugalde MD [phone] Camps: PM St: ADM Name: MIRTHA ERIC [facility] : 1965 Age/S: 52/M [address] [place] [address] Unit #: [id number] Loc: [address] [place] [address] Phys: Marcelino Ugalde MD Acct: [id number] Dis Date: Status: ADM IN PHONE #: [phone] Exam Date: 07/04/2018 1016 FAX #: Reason: to r/o aneurysm EXAMS: CPT: [id number] MRA HEAD W/O CONT 31944 MRA HEAD WITHOUT CONTRAST HISTORY: AneurysmCOMPARISON: None TECHNIQUE: 3-D endk-ur-hlaelx and MIP images were obtained through the hopi of [place]. Location: R16. FINDINGS: Limited exam due to patient motion. 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 The posterior communicating artery is not visualized, likely hypoplastic related tovariant anatomy. Otherwise the hopi of [place] is intact. No other large vessel occlusion. No definite aneurysm. 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 No definite aneurysm. at 1210 Reported and signed by: Rashawn Garcia M.D. CC: Marcelino Garcia Technologist: RT Peggy(R)(MR); ... Transcribed Date/Time/By: 07/04/2018 (1210) :[email or web address] Orig Print D/T: S: 07/04/2018 (6291) PAGE 1 Signed Report- MRI BRAIN W/O [id number] 11:21:00 FAX: Marcelino Ugalde MD [phone] Camps: PM St: ADM Name: MIRTHA ERIC [facility] : 1965 Age/S: 52/M [address] Unit #: [id number] Loc: [address] [place] [address] Phys: Marcelino Ugalde MD Acct: [id number] Dis Date: Status: ADM IN PHONE #: [phone] Exam Date: 07/04/2018 1045 FAX #: Reason: to r/o aneurysm EXAMS: CPT: [id number] MRI BRAIN W/O CONTRAST 89648 MRI BRAIN WITHOUT CONTRAST HISTORY: Headache and dizziness. TECHNIQUE: Multiplanar and multiple pulse sequences were obtained throughout thebrain without contrast. Location: R16. COMPARISON: Outside CT head on 07/02/18. FINDINGS: Diffusion hans ghted imaging shows no evidence of acute ischemia. T2-T3 and posterior fossa are unremarkable. No hemorrhage, mass, mass effect, hydrocephalus, midline shift or extra-axial fluid collection. No abnormal T2 or FLAIR signal noted within the white matter. The paranasal sinuses and mastoid air cells are clear. The globes are unremarkable. IMPRESSION: No evidence of acute ischemia. Unremarkable unenhancedMRI brain. at 1121 Reported and signed by: Rashwan Garcia M.D. CC: Marcelino Ugalde MD Technologist: RT Peggy(R)(MR) Transcribed Date/Time/By: 07/04/2018 (1121) :[email or web address] Orig Print D/T: S: 07/04/2018 (1124) PAGE 1 Signed ReportCOMPREHENSIVE METABOLIC [id number] 06:39:00 Test Item Value Reference Range Interpretation [...] TOTAL (test code = ALKP) CBC W/AUTO [id number] 06:38:00 Test Item Value Reference Range Interpretation [...] NO DIFF/SCN CRITERIA MDIFF) - CT CHEST W/[id number] 22:55:00 Name: MIRTHA ERIC [facility] Rob : 1965 Age/S: 52 / M [address] Unit #: [id number]: [place]ivas [address] Phys: Jason Botello MD Acct: [id number] Dis Date: Status: ADM IN PHONE #: [phone] Exam Date: 07/03/2018 5085 FAX #: Reason: CP, palpitations, +d- dimer. R/O PE EXAMS: CPT: [id number] CT CHEST W/CONTRAST 34013 Examination: CTA chest, PE protocol Indication: Chest pain, palpitations history of positive d- dimer Comparison: None available Location: P16 Technique: Multiple contiguous axial 1.25 mm images were obtained through the lung after administration of IV contrast. Coronal and sagittal maximum intensity projection (MIPs) images were generated. One or more of the following dose reduction techniques were used: Automated exposure control, adjustment of the mA and/or kV according to patient size, and/or utilization of iterative reconstruction technique. Findings: Adequ ate contrast bolus. No evidence of acute pulmonary embolism down to the level of the subsegmental pulmonary arteries. These findings were confirmed on MPR and MIP images. No underlying lung parenchymal abnormality. No pleural effusion of pleural thickening. There are no enlarged mediastinal, hilar, supraclavicular or axillary lymph nodes by CT criteria. Heart size is normal. There is no pericardialeffusion or thickening. The aorta is normal in caliber. Although the evaluation of the aortic root is limited in the absence of gating, the remainder of the aorta remains unremarkable with the exception of aortic calcifications. Limited early arterial phase evaluation of the upper abdomen is unremarkable. No suspicious or destructive osseous lesions. Impression: No evidence of acute pulmonary was in the level of the proximal PAGE 1 Signed Report (CONTINUED) Name: MIRTHA REIC : 1965 Age/S: 52 / M [address] Unit #: [id number] Loc: R[place] Rivas [address] Phys: AyanJason KAYLEN Acct: [id number] Dis Date: Status: ADM IN PHONE #: [phone] Exam Date: 07/03/2018 2210 FAX#: Reason: CP, palpitations, +d-dimer. R/O PE EXAMS: CPT: [id number] CT CHEST W/CONTRAST 77864 (Continued) segmental pulmonary arteries on the left, evaluation of the right is limited secondary to streak artifact from contrast within the IVC, no evidence of acute pulmonary embolism is seen on the left to the level of the proximal lobar pulmonary arteries. Diffuse esophageal thickening is noted throughout at 7206 Reported and signed by:Carol Bar M.D. CC: Marcelino Ugalde MD; Jason Botello MD Technologist:Salty Sahu, RT(R)(CT); .. CTDI: DLP: Trnscb Date/Time: 07/03/2018 (2254) [email or web address] Orig Print D/T: S: 07/03/2018 (225) CTDI: DLP: PAGE 2 Signed ReportRULE OUT VT [id number] 14:27:00 Test Item Value Reference Range Interpretation [...] franco yby method. - XR CHEST 1 [id number] 12:14:00 Name: MIRTHA ERICland : 1965 Age/S: 52 / M [address] Unit #: [id number]: [place] [address] Phys: Marcelino Ugalde MD Acct: [id number] Dis Date: Status: ADM IN PHONE#: [phone] Exam Date: 07/03/2018 1120 FAX #: Reason: SOB EXAMS: CPT: [id number] XR CHEST 1 V 31803 Fluoro Time: DAP (Gy m2): Air Kerma (mGy): Site ID: [id number] HISTORY: Chest pain FINDINGS: The lungsare clear and normally expanded. The heart and pulmonary vasculature is normal. Osseous structures are unremarkable. IMPRESSION: Negative chest X-ray. at 1214 Reported and signed by: Niki Chin M.D. CC: Marcelino Ugalde MD PAGE 1 Signed Report Name: MIRTHA ERIC [place] : 1965 Age/S: 52 / M [address] [facility] Unit #: [id number] Loc: [place] [address] Phys: Marcelino Ugalde MD Acct: [id number] Dis Date: Status: ADM IN PHONE #: [phone] Exam Date: 07/03/2018 1120 FAX #: Reason: SOB EXAMS: CPT: [id number] XR CHEST 1 V 49140 Fluoro Time: DAP (Gy m2): Air Kerma (mGy): (Continued) Technologist: Jen Tate RT(R)Trnscb Date/Time: 07/03/2018 (6374) [email or web address] Orig Print D/T: S: 07/03/2018 (2997) PAGE 2 Signed ReportRULE OUT VT [id number] 06:03:00 Test Item Value Reference Range Interpretation [...] results may franco yby method. CBC W/AUTO [id number] 03:40:00 Test Item Value Reference Range Interpretation [...] (test code = NO DIFF/SCN CRITERIA MDIFF) [id number] 03:29:00 Test Item Value Reference Range Interpretation Comments D-DIMER (test code = DDIMER) 518 ng/mLFEU 215-500 COMPREHENSIVE METABOLIC [id number] 03:21:00 Test Item Value Reference Range Interpretation [...] = LDL/HDL) 4.05 Ratio 1.48-3.22 Avg H [id number] 03:05:00 Test Item Value Reference Range Interpretation Comments PHOSPHOROUS (test code = PHOS) 3.1 MG/DL 2.5-4.9 N RULE OUT VT [id number] 03:05:00 Test Item Value Reference Range Interpretation [...] nume rical results may franco yby method. [id number] 03:05:00 Test Item Value Reference Range Interpretation Comments MAGNESIUM (test code = MAG) 2.0 MG/DL 1.8-2.4 N Notes Date/Time Note Provider Source 2018-07-05 12:45:00-00:00 [facility] ([facility]) Hospitalist Progress Note REPORT#:[id number] REPORT STATUS: Signed DATE:07/05/18 TIME:1245 PATIENT: MIRTHA ERIC UNIT #: [id number] ROOM/BED: [place] [address] : [birth year] AGE: 52 SEX: M ATTEND: Devonte Ugalde MD ADM AUTHOR: Marcelino Ugalde MD * ALL edits or amendments must be made on the [employer]/computer document * Subjective Chief Complaint: Chest pain is better Still having dizziness Objective General VS/I O: Vital Signs: Date Time Temp Pulse Resp B/P B/P Pulse O2 O2 F low FiO2 Mean Ox Delivery Rate 07/05 1114 98.4 69 12 115/66 82.4 94 Room air 07/05 0730 Nasal 2.998903 cannula 07/05 07 97.9 72 12 128/82 97.0 95 Room air / 0429 68 18 116/69 84.4 95 Room air 02/ 2315 98.1 74 18 120/73 88.4 94 Room air / 1929 98.2 76 18 132/78 95.9 95 Room air 02/ 1538 98.4 77 20 119/74 88.8 95 General appearance: alert, awake, oriented HEENT : normocephalic ,Atraumatic Eyes: Eyes normal inspection. ENT: Dry mucous membranes present. Neck: Normal inspection. Neck supple. CVS: Normal heart rate and rhythm. Heart sounds normal. Respiratory: No respiratory distress. Breath mona nds normal. Abdomen: Soft and nontender. Back: Normal inspection. Skin: Skin warm. Normal skin color. No rash. Extremities: No lower extremity edema. Neuro: Oriented X 3. No motor deficit No generalized lymph adenopathy Diagnosis, Assessment Plan Free Text A P: Chest pain to rule out ACS Palpitations Dizziness Exertional dyspnea COPD? History of tobacco abuse Hyperlipidemia Hypertriglyceridemia Plan Trend cardiac enzymes serial EKGs Monitor under telemetry Cardiology consult Advised smoking cessation Bronchodilators as needed Elevated d-dimer CT chest was done which showed no PE but thicken ed esophagus We will get a GI consult as well Apparently patient has history of dizziness for long on Family history of AV malformation and cerebral b leed We will get an MRA We will get a neurology consult at 1820 RPT #: [id number] END OF REPORT 2018-07-05 09:11:00-00:00 [id number] [address] PATIENT NAME: MIRTHA ERIC ADMIT DATE: 07/03/18 ACCOUNT NO: [id number] ROOM NO: LPO1 AGE: 52 REPORT TYPE: CONSULTATION SEX: M ADMITTING PHYSICIAN: Marcelino Ugalde MD ATTENDING PHYSICIAN: Marcelino Ugalde MD CONSULTATION DATE: 07/05/2018 CONSULTING PHYSICIAN: Mary Mauricio MD NEUROLOGY CONSULTATION REFERRING PHYSICIAN: Marcelino Ugalde MD REASON FOR CONSULTATION: Evaluation for dizzines s and atypical body pains. HISTORY OF PRESENT ILLNESS: Mr. Eric is a 52-yea r-old male with past medical history significant for prior tobacco ab use with COPD, and dyslipidemia. Prior history of cervical and lumb ar spine issues who was brought into [place] ED after having sudden onset of palpitation and aty pical chest pain. He has been transferred to [facility] for highe level of care. His cardiac workup was essentially unremarkable with negativ e troponins. He does have an elevated D-dimer for which he underwent CT chest with PE protocol, which was essentially unremarkable. The patient did compla in of dizziness and chronic headache. Neurological consultation has been obt ained for further input. The patient does have a family history of ce rebral aneurysms. He has undergone MRI of the brain which was essentially unremarkable for any acute intracranial abnormalities. MRA of the head also did not show any evidence of cerebral aneurysm or any other vascular malformation. The re was some congenital variation noted, which were discussed with the rozina carballo. Neurological consultation has been obtained for further input . PAST MEDICAL HISTORY: As mentioned above. SOCIAL HISTORY: No documentation of active smoki ng, alcohol, or illicit drug abuse. MEDICATIONS: Reviewed from JUL. REVIEW OF SYMPTOMS: A 14-point review of symptom s have been essentially unremarkable apart from those mentioned in the h istory of present illness. PHYSICAL EXAMINATION: VITAL SIGNS: Blood pressure 120/73, heart rate 7 4, respirations 18, and temperature 36.7. NEUROLOGIC: Carotid auscultation did not reveal any bruit. MENTAL STATUS EXAMINATION: He is alert, awake, oriented, following both simple and complex commands. Speech is fluent. Comprehe nsion is intact. Cranial PATIENT NAME: MIRTHA ERIC 9 nerve examination; pupils were equal, round, and reactive. Extraocular movement seems intact. Face looks symmetric. Ton kenney seems to be in the midline. MOTOR EXAMINATION: He is moving all the four ext remities against the gravity with no obvious focal motor deficit noti jarrell. Reflexes were symmetric. Plantars are downgoing. SENSORY EXAMINATION: gross periph eral and cortical sensation seems intact. Gait testing is deferred at this t ruthie. LABORATORY DATA AND IMAGING STUDIES: Has been re viewed. ASSESSMENT: 1. Atypical chest pain with dizziness and elevat ed D-dimer. Neurovascular imagings have been essentially unremarkable. 2. 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 3. Chronic headaches. RECOMMENDATIONS: 1. No need for any further neurodiagnostic testi ng. 2. The patient can be discharged from neurologic al standpoint of view with outpatient neurology followup as recommended. Dictated By: Mary Mauricio MD WT: CON:ALEXI/04/NTS Conf#: [id number]#: [id number] Authenticated by Mary Mauricio MD On 07/23/19 09:51:41 AM at 0951 PATIENT NAME: MIRTHA ERIC 2018-07-04 19:57:00-00:00 [facility] ([facility]) Hospitalist Progress Note REPORT#:[id number] REPORT STATUS: Signed DATE:07/04/18 TIME:1956 PATIENT: MIRTHA ERIC UNIT #: [id number] ROOM/BED: [place] [address] : [birth year] AGE: 52 SEX: M ATTEND: Devonte Ugalde MD ADM AUTHOR: Marcelino Ugalde MD * ALL edits or amendments must be made on the [employer]/computer document * Subjective Chief Complaint: Chest pain is better Still continues to have dizziness and shortness of breath Objective General VS/I O: Vital Signs: Date Time Temp Pulse Resp B/P B/P Pulse O2 O2 F low FiO2 Mean Ox Delivery Rate 07/04 1928 98.2 76 18 132/78 95.9 95 Room air 07/04 1538 98.4 77 20 119/74 88.8 95 07/04 1132 98.8 66 20 118/81 92.9 95 07/04 0823 98.1 73 20 120/76 90.2 96 07/04 0406 98.8 81 19 113/66 81.8 94 07/03 2127 97.5 69 17 120/74 89.8 94 General appearance: alert, awake, oriented HEENT : normocephalic ,Atraumatic Eyes: Eyes normal inspection. ENT: Dry mucous membranes present. Neck: Normal inspection. Neck supple. CVS: Normal heart rate and rhythm. Heart sounds normal. Respiratory: No respiratory distress. Breath mona nds normal. Abdomen: Soft and nontender. Back: Normal inspection. Skin: Skin warm. Normal skin color. No rash. Extremities: No lower extremity edema. Neuro: Oriented X 3. No motor deficit No generalized lymph adenopathy Results Findings/Data: Laboratory Tests 07/04 538 Chemistry Sodium (134 - 147 mmol/L) 145 Potassium (3.4 - 5.0 mmol/L) 4.4 Chloride (100 - 108 mmol/L) 112 H Carbon Dioxide (21 - 32 mmol/L) 24 Anion Gap (4.0 - 15.0 GAP calc) 9.0 BUN (7 - 18 MG/DL) 13 Creatinine (0.8 - 1.3 MG/DL) 0.9 Glomerular Filtr Rate (>60 estGFR) >=60 max est imate Glucose (70 - 110 MG/DL) 134 H Calcium (8.5 - 10.1 MG/DL) 8.9 Total Bilirubin (0.2 - 1.2 MG/DL) 0.20 AST (15 - 37 Unit/L) 14 L ALT (12 - 78 Unit/L) 47 Total Alk Phosphatase (50 - 136 Unit/L) 105 Total Protein (6.4 - 8.2 G/DL) 7.3 Albumin (3.4 - 5.0 G/DL) 3.7 Globulin (GM/dL) 3.6 Albumin/Globulin Ratio (1.2 - 2.2 RATIO) 1.0 L Laboratory Tests 07/04 0539 Hematology WBC (3.5 - 11.0 K/mm3) 7.0 RBC (4.70 - 6.10 M/mm3) 4.86 Hgb (12.3 - 15.9 G/DL) 14.8 Hct (35.8 - 46.7 %) 45.2 MCV (86.3 - 98.9 Fl) 93.0 MCH (28.9 - 34.4 pg) 30.5 MCHC (32.1 - 34.5 G/DL) 32.7 RDW (11.5 - 14.5 SD) 13.5 Plt Count (150 - 450 K/mm3) 201.0 MPV (7.0 - 9.6 fL) 12.60 H Neut % (Auto) (40 - 76 %) 55.2 Lymph % (Auto) (20.5 - 51.1 %) 34.4 [place] % (Auto) (1.7 - 9.3 %) 8.6 Eos % (Auto) (0.0 - 6.0 %) 1.4 Baso % (Auto) (0.0 - 2.0 %) 0.4 Neut # (Auto) (1.8 - 7.6 K/mm3) 3.83 Lymph # (Auto) (0.6 - 3.0 K/mm3) 2.4 [place] # (Auto) (0.2 - 1.5 K/mm3) 0.6 Eos # (Auto) (0.0 - 0.4 K/mm3) 0.1 Baso # (Auto) (0.0 - 0.2 K/mm3) 0.0 Add Manual Diff (CRITERIA DIFF/SCN) NO Radiology data: Recent Impressions: CAT SCAN - CT CHEST W/CONTRAST 07/03 2199 Report Impression - Status: SIGNED Entered: 07/03/2018 2258 Impression: No evidence of acute pulmonary was in the level of the proximal segmental pulmonary arteries on the left, evalua tion of the right is limited secondary to streak artifact from contra st within the IVC, no evidence of acute pulmonary embolism is seen on the left to the level of the proximal lobar pulmonary arteries. Diffuse esophageal thickening is noted throughou t Impression By: [email or web address] Howard Bar M.D. 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 No definite ane urysm. Impression By: Harinder Garcia M.D. MAGNETIC RESONANCE IMAGING - MRI BRAIN W/O CONTR AST 07/04 1020 Report Impression - Status: SIGNED Entered: 07/04/2018 1124 IMPRESSION: No evidence of acute ischemia. Unremarkable unen hanced MRI brain. Impression By: Harinder Garcia M.D. Diagnosis, Assessment Plan Free Text A P: Chest pain to rule out ACS Palpitations Dizziness Exertional dyspnea COPD? History of tobacco abuse Hyperlipidemia Hypertriglyceridemia Plan Trend cardiac enzymes serial EKGs Monitor under telemetry Cardiology consult Advised smoking cessation Bronchodilators as needed Elevated d-dimer CT chest was done which showed no PE but thicken ed esophagus We will get a GI consult as well Apparently patient has history of dizziness for long on Family history of AV malformation and cerebral b leed We will get an MRA at 1818 RPT #: [id number] END OF REPORT 2018-07-04 12:26:00-00:00 [facility] ([facility]) Discharge Summary REPORT#:[id number] REPORT STATUS: Signed DATE:07/04/18 TIME:1226 PATIENT: MIRTHA ERIC UNIT #: [id number] ROOM/BED: [place] [address] : [birth year] AGE: 52 SEX: M ATTEND: Devonte Ugalde MD ADM AUTHOR: Marcelino Ugalde MD * ALL edits or amendments must be made on the [employer]/computer document * PCP PCP Discharge to: home General Information Date of discharge: 07/06/18 Hospital course: Atypical chest pain ruled out ACS Palpitations Dizziness Exertional dyspnea COPD History of tobacco abuse Hyperlipidemia Hypertriglyceridemia Plan Trended cardiac enzymes serial EKGs Monitored under telemetry Cardiology consulted recommended outpatient foll ow-up Advised smoking cessation Bronchodilators as needed Elevated d-dimer , CT chest was done which showed no PE but thickened esophagus GI consulted recommended outpatient follow-up an d possible EGD as outpatient Apparently patient has history of dizziness for long, Family history of AV malformation and cerebral bleed. Had MRA and dio rology consult and advised to follow-up with neurology as outpatient along with pulmonology in order to get a sleep study. Patient will be sent to the PCP for further work up and follow-up Med Rec Med Rec Discharge meds: Continue taking these medications: traMADol (ULTRAM) 50 MG TAB 50 MILLIGRAM ORAL EVERY 4 HOURS NEEDED. as n eeded for PAIN Start taking the following new medications: FENOFIBRATE (TRIGLIDE) 160 MG TAB 160 MILLIGRAM ORAL DAILY AT 1700. Qty = 30 No Refills ASPIRIN (ASPIRIN) 81 MG TAB.CHEW 81 MILLIGRAM ORAL DAILY. Qty = [address] (PROTONIX) 40 MG TAB.DR 40 MILLIGRAM ORAL TWICE DAILY. Qty = 60 No Refills ALBUTEROL/IPRATROPIUM (DUONEB 3-0.5 MG/3ML) 3 ML NEB 3 MILLILITERS NEB RT - EVERY 4 HOURS NEEDED. as needed for SOB Qty = 1 No Refills NEBULIZER/COMPR. FOR NEB (INSPIRATION ELITE NEBU LIZER) 1 EACH NEB 1 EACH INHALATION DIRECTED. Qty = 1 No Refills Discharge Instructions Diet: cardiac Activity: as tolerated Discharge management: greater than 30 mins Follow-up Appointments PCP: PCP: DOES_NOT KNOW Follow up timeframe: In 1-2 weeks Attending Physician: Attending Physician: Marcelino Ugalde MD Consulting provider 1: Provider 1: Gus Henson MD Specialty: GASTROENTEROLOGY Follow up timeframe: In 1-2 weeks Consulting provider 2: Provider 2: Jason Botello MD Specialty: CARDIOVASC DIS Objective VS/I O Last Documented: Result Date Time Pulse Ox 96 / 1548 FiO2 21 / 1548 O2 Delivery Room air 07/05 1548 B/P 123/74 07/05 1528 B/P Mean 90.4 / 1528 Temp 98.2 /08 1528 Pulse 70 /08 1528 Resp 12 / 1528 O2 Flow Rate 2.566906 07/05 0730 General appearance: alert, awake, oriented HEENT : normocephalic ,Atraumatic Eyes: Eyes normal inspection. ENT: Dry mucous membranes present. Neck: Normal inspection. Neck supple. CVS: Normal heart rate and rhythm. Heart sounds normal. Respiratory: No respiratory distress. Breath mona nds normal. Abdomen: Soft and nontender. Back: Normal inspection. at 1823 RPT #: [id number] END OF REPORT 2018-07-04 08:57:00-00:00 [id number] [facility] [id number] [place] [id number] PATIENT NAME: MIRTHA ERIC ADMIT DATE: 07/03/18 ACCOUNT NO: [id number] ROOM NO: [facility] AGE: 52 REPORT TYPE: CONSULTATION SEX: M ADMITTING PHYSICIAN: Marcelino Ugalde MD ATTENDING PHYSICIAN: Marcelino Ugalde MD CONSULTATION DATE: CONSULTING PHYSICIAN: Neo Quinn MD GASTROENTEROLOGY CONSULTATION INDICATION OF GASTROINTESTINAL CONSULT: Abdomina l pain. HISTORY OF PRESENT ILLNESS: A 52-year-old male w alcira reports chest pain. He was evaluated at [facility] with similar complaints. He complains of shortness breath on walking one block. He has underlying h istory of COPD and tobacco usage. He has been currently evaluated b y cardiology for chest pain. He denies any melena, hematochezia, hematemesis, fevers, o r chills. PAST MEDICAL HISTORY: COPD and hypertension. PAST SURGICAL HISTORY: None. FAMILY HISTORY: No history of liver disease, col on disease, or pancreatic disease. PAST ENDOSCOPIC HISTORY: No prior EGD or colonos copies. REVIEW OF SYSTEMS: A 14-point review of systems reviewed and confirmed. Pertinent positives and negatives as listed in h istory of present illness. Chest pain positive. Shortness of breath positiv e. Melena negative. Hematochezia negative. Other systems unremarkabl e. PHYSICAL EXAMINATION: VITAL SIGNS: Temperature 98. 8, pulse of 81, respirations 19, and blood pressure 113/66. GENERAL APPEARANCE: Lying comfortably in bed, in no apparent distress. CHEST: CTA bilaterally. CARDIOVASCULAR: S1 and S2 within normal limits. ABDOMEN: Abdominal hernia present in the epigast ankur area, reducible, nonstrangulated. No erythema. EXTREMITIES: No edema. NEUROLOGIC: Alert and oriented. LABORATORY DATA: White count 7, hemoglob in 14, hematocrit 45, and platelets of 201. D-dimer 518. Sodium 145, potassium 4.5, cre atinine 1.9. Triglycerides 654. Cholesterol is 237, HDL 34. PATIENT NAME: MIRTHA ERIC 9 IMAGING STUDIES: Chest CT scan, no evidence of a cute pulmonary arteries on the left. Evaluation of right is limited seconda ry to artifact. No evidence of acute pulmonary embolism. IMPRESSION: 1. Chest pain under cardiac evaluation. 2. Shortness of breath. 3. Abdominal reducible hernia. 4. Abnormal CT scan revealing thickening of the esophagus Mr. Eric's chest pain is cur rently under evaluation. He is undergoing a cardiac evaluation. Thickening of esophagus appears to b e related to esophagitis. RECOMMENDATIONS: 1. PPI IV b.i.d. 2. Hold H2 blockers. 3. Advance diet as tolerated. 4. Abdominal hernia is reducible. There is no ev idence of strangulation. 5. Consider elective EGD and colonoscopy as outp atient. 6. Continue PPI trial b.i.d. for 4 weeks. 7. Okay to discharge from a GI standpoint once s table from a cardiac and respiratory standpoint. As always, thank you for all owing this opportunity to participate in the care of your patient. Dictated By: Neo Quinn MD WT: CON:ALEXI/BARBARA/TANNER Conf#: [id number]/DID#: [id number] Authenticated and Edited by Neo Quinn MD On 8:06:41 AM Electronically Signed by Neo Quinn MD on 0 07/09/18 at 0810 PATIENT NAME: MIRTHA ERIC 9 2018-07-03 15:55:00-00:00 [id number] [address] PATIENT NAME: MIRTHA ERIC ADMIT DATE: 07/03/18 ACCOUNT NO: [id number] ROOM NO: [facility] AGE: 52 REPORT TYPE: eECHOCARDIOGRAM REPORT SEX: M ADMITTING PHYSICIAN: Marcelino Ugalde MD ATTENDING PHYSICIAN: Marcelino Ugalde MD PROCEDURE: Echocardiogram STUDY DATE: 07/03/2018 REASON FOR STUDY: Palpitations and abnormal EKG. STUDY QUALITY: Fair. LV MEASUREMENTS: 1. LV septum 1.2 cm. 2. LV end-diastolic diameter 4.8 cm. 3. LV end-systolic diameter 3.2 cm. 4. LV posterior wall thickness 1.3 cm. 5. Aortic root diameter 3.1 cm. 6. LVOT diameter 2.2 cm. 7. Peak AV velocity 1.5 m/sec. FINDINGS: 1. LV is normal in size. LV systolic function is normal. Normal global wall motion. Estimated LVEF is 60% to 64%. Diastolic function is also normal. Normal LV relaxation. 2. RV size and systolic function are normal. 3. Left atrium is normal in size. 4. Right atrium is normal in size. 5. Aortic root is normal in size. 6. Aortic valve is trileaflet with normal leafle t excursion. No aortic stenosis or regurgitation. 7. Mitral valve is structurally normal. No signi ficant regurgitation seen. 8. Tricuspid valve is structurally normal with n o significant tricuspid regurgitation. 9. Pulmonic valve is structurally normal with no regurgitation seen. 10. Pericardium: No evidence of pericardial effu jamin. 11. Insufficient TR jet to estimate PA pressure. Dictated By: Jason Botello MD WT: ECHO:TRACY/NEERU/TANNER Conf#: [id number]/DID#: [id number] PATIENT NAME: MIRTHA ERIC Electronically Signed by Jason Botello MD on 0 07/28/18 at 2120 PATIENT NAME: MIRTHA ERIC 2018-07-03 14:42:00-00:00 [facility] ([facility]) Cardiology Consultation REPORT#:[id number] REPORT STATUS: Signed DATE:07/03/18 TIME:1442 PATIENT: MIRTHA ERIC UNIT #: [id number] ROOM/BED: [place] [address] : [birth year] AGE: 52 SEX: M ATTEND: Devonte Ugalde MD ADM AUTHOR: Jason Botello MD * ALL edits or amendments must be made on the [employer] document * History of Present Illness HPI Reason for consult: Chest pain, palpitations, abnormal EKG HPI: Mr. Eric is a 52-year-old gentleman with history of COPD, prior tobacco abuse, and hyperlipidemia who prese nted initially to an outside ED in [place] for sudden onset palpitations. He described mild ass ociated chest pain but no shortness of breath. Symptoms lasted for a few h ours before finally resolving on its own. Workup at the [facility] ED was unremarkable including chest x-ray and CT head. Initial cardiac enzyme sets were negati ve. Since transfer to the [facility], ACS was ruled out with negative troponins x3. EKG however sh owed normal sinus rhythm with old inferior infarct. No active ischemic ST-T wave changes. T elemetry is also revealed normal sinus rhythm only. Mr. Eric at this point time feels back to his baseline. He has no history of CAD, prior VT, or CHF. Of note d-dimer is elevated at 518. Mr. Eric den ies any active chest pain at this time. History - Adult longitudinal Past medical history: Reports: COPD, Hypertension. Denies: Anemia, Atr ial fib/flutter, Congestive heart failure, Coronary artery disease, Diabetes mellitus. Additional medical history: HLD Additional surgical history: None Family history: Reports: Hypertension. Additional family history: No early onset CAD or sudden cardiac . Alcohol use: Denies EtOH use Drug use: Denies recreational drugs Smoking status for patients 13 years old or olde r: Former Smoker Pack years (pk/d)*(yrs): 20 Medications: Home Medications: Medication Dose/Rte/Freq Days Qty Entered Last Max Daily Dose Reviewed traMADol (ULTRAM) 50 MG PO 07/03/18 07/03/18 Strength: 50 MG TAB Q4H PRN PRN PAIN 0202 0205 Current Hospital Medications: Cardiovascular Drugs Sig/Janet Start time Last Medication Dose Route Stop Time Status Admin Fenofibrate 160 MG DAILY 1700 07/03 1700 AC (LOFIBRA) PO 08/02 1659 Hydralazine HCl 10 MG Q6H PRN PRN 07/03 0215 AC (APRESOLINE) IV 08/02 0214 Central Nervous System Agents Sig/Janet Start time Last Medication Dose Route Stop Time Status Admin Aspirin 81 MG DAILY 07/03 0900 AC 07/03 (ECOTRIN) PO 08/02 0859 0812 Acetaminophen 650 MG Q4H PRN PRN 07/03 0215 AC (TYLENOL) PO 08/02 0214 Hydrocodone Bitart/ 1 TAB Q6H PRN PRN 07/03 021 5 AC Acetaminophen PO 07/13 0214 (NORCO 5/325) Hydrocodone Bitart/ 1 TAB Q6H PRN PRN 07/03 021 5 AC Acetaminophen PO 07/13 0214 (NORCO 7.5/325) Morphine Sulfate 2 MG Q4H PRN PRN 07/03 0215 AC (morphine SULFATE) IV 07/13 213 Gastrointestinal Drugs Sig/Janet Start time Last Medication Dose Route Stop Time Status Admin Famotidine 20 MG BID AC 07/03 729 AC 07/03 (PEPCID) PO 08/02 07 0813 Ondansetron HCl 4 MG Q4H PRN PRN 07/03 0215 AC (ZOFRAN) IV 08/02 213 Allergies: Coded Allergies: No Known Allergies (07/03/18) Review of Systems Cardiovascular: Reports: chest pain, palpitations. Free Text ROS Notes Free Text ROS Notes: As per HPI. Otherwise 10 point review systems ne gative. Objective Physical Exam VS/I O: Vital Signs: Date Time Temp Pulse Resp B/P B/P Pulse O2 O2 F low FiO2 Mean Ox Delivery Rate 07/03 1103 97.9 64 15 130/82 97.7 96 Room air 07/03 0800 Nasal 2.042675 cannula 07/03 0653 97.9 72 16 123/75 91.0 94 Room air 07/03 0300 Nasal 2.518588 cannula 07/03 0153 98.1 80 20 126/81 95.7 95 24 hour I O ending at 0700: 07/03 0700 07/02 1900 Intake Total 150 Output Total Balance 150 Intake, Oral 150 Patient 232 lb Weight General appearance: alert, awake, oriented Head/Eyes: atraumatic, EOMI ENT: normal nose Neck: supple/no meningismus, no bruit/NL carotid s, no JVD Cardiovascular: CV assessment: regular rate and rhythm, BP puls es = bilaterally, normal heart sounds Respiratory: clear to auscultation, no distress Abdomen: soft, non-tender, normal bowel sounds, no distention Upper extremity: UE assessment: no clubbing, no cyanosis, no senia ma Lower extremity: LE assessment: no clubbing, no cyanosis, no senia ma, 2+ pedal pulse Musculoskeletal: normal inspection Neuro/INKER: alert, oriented X 3, normal speech Skin: dry, intact Psychiatry: normal mood Results Findings/Data: Laboratory Tests 07/03 07/03 07/03 1400 0513 0228 Chemistry Phosphorus (2.5 - 4.9 MG/DL) 3.1 Magnesium (1.8 - 2.4 MG/DL) 2.0 Total Creatine Kinase (26 - 192 Unit/L) 52 68 78 Troponin I (0.000 - 0.045 NG/ML) < 0.015 < 0.01 5 < 0.015 Triglycerides (0 - 150 MG/DL) 654 H Cholesterol (133 - 200 MG/DL) 237 H LDL Cholesterol Measurd (0 - 129 MG/DL) 138 H Non-HDL Cholesterol (<130 mg/dL) 203 H HDL Cholesterol (40 - 59 MG/DL) 34 L LDL/HDL Ratio (1.48 - 3.22 Avg Ratio) 4.05 H Cholesterol/HDL Ratio (0 RATIO) 6.97 07/03 227 Chemistry Sodium (134 - 147 mmol/L) 140 Potassium (3.4 - 5.0 mmol/L) 3.6 Chloride (100 - 108 mmol/L) 106 Carbon Dioxide (21 - 32 mmol/L) 24 Anion Gap (4.0 - 15.0 GAP calc) 10.0 BUN (7 - 18 MG/DL) 16 Creatinine (0.8 - 1.3 MG/DL) 1.1 Glomerular Filtr Rate (>60 estGFR) >=60 max est imate Glucose (70 - 110 MG/DL) 149 H Calcium (8.5 - 10.1 MG/DL) 8.1 L Total Bilirubin (0.2 - 1.2 MG/DL) 0.20 AST (15 - 37 Unit/L) 23 ALT (12 - 78 Unit/L) 55 Total Alk Phosphatase (50 - 136 Unit/L) 101 Total Protein (6.4 - 8.2 G/DL) 7.1 Albumin (3.4 - 5.0 G/DL) 3.5 Globulin (GM/dL) 3.6 Albumin/Globulin Ratio (1.2 - 2.2 RATIO) 1.0 L Laboratory Tests 07/03 227 Coagulation D-Dimer (215 - 500 ng/mLFEU) 518 *H Laboratory Tests 07/03 227 Hematology WBC (3.5 - 11.0 K/mm3) 9.4 RBC (4.70 - 6.10 M/mm3) 4.77 Hgb (12.3 - 15.9 G/DL) 14.6 Hct (35.8 - 46.7 %) 43.5 MCV (86.3 - 98.9 Fl) 91.2 MCH (28.9 - 34.4 pg) 30.6 MCHC (32.1 - 34.5 G/DL) 33.6 RDW (11.5 - 14.5 SD) 13.3 Plt Count (150 - 450 K/mm3) 208.0 MPV (7.0 - 9.6 fL) 12.60 H Neut % (Auto) (40 - 76 %) 63.8 Lymph % (Auto) (20.5 - 51.1 %) 29.3 [place] % (Auto) (1.7 - 9.3 %) 5.4 Eos % (Auto) (0.0 - 6.0 %) 1.2 Baso % (Auto) (0.0 - 2.0 %) 0.3 Neut # (Auto) (1.8 - 7.6 K/mm3) 6.01 Lymph # (Auto) (0.6 - 3.0 K/mm3) 2.8 [place] # (Auto) (0.2 - 1.5 K/mm3) 0.5 Eos # (Auto) (0.0 - 0.4 K/mm3) 0.1 Baso # (Auto) (0.0 - 0.2 K/mm3) 0.0 Add Manual Diff (CRITERIA DIFF/SCN) NO Laboratory Tests 07/03 07/03 07/03 1400 0513 0228 Chemistry Magnesium (1.8 - 2.4 MG/DL) 2.0 Troponin I (0.000 - 0.045 NG/ML) < 0.015 < 0.01 5 < 0.015 Radiology Data: Recent Impressions: RADIOLOGY - XR CHEST 1 V 07/03 1116 Report Impression - Status: SIGNED Entered: 07/03/2018 1217 IMPRESSION: Negative chest X-ray. Impression By: [email or web address] - Niki Chin M.D. Diagnosis, Assessment Plan Free Text A P: Mr. Eric is a 52-year-old, who presents with the following: -Palpitations and atypical c hest pain -has maintained normal sinus rhythm since arrival here. ACS has been ruled out. D-dimer is elevated though. Will check CTA chest to rule out PE. 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 N o active ischemic changes though. - COPD - hx of tob abuse - quit smoking a few years ago . - Hypertriglyceridemia - start fenofibrate thera py. Needs dietery changes, exercise, and weight loss. Plan - f/u echo and CTA chest. If unremarkable, then ok for d/c home. Thank you. Orders: Procedure Date/time Status ECHO 2D COMPLETE W/CF DOP 07/03 1441 Active CTA CHEST 07/03 1440 Active Electronically Signed by Jason Botello MD on at 1454 RPT #: [id number] END OF REPORT 2018-07-03 10:11:00-00:00 [facility] ([facility]) History Physical - Adult REPORT#:[id number] REPORT STATUS: Signed DATE:07/03/18 TIME:1011 PATIENT: MIRTHA ERIC UNIT #: [id number] ROOM/BED: [place] [address] : 67 AGE: 52 SEX: M ATTEND: Devonte Ugalde MD ADM AUTHOR: Marcelino Ugalde MD * ALL edits or amendments must be made on the [employer] document * History of Present Illness HPI Chief complaint: Chest pain Dizziness Exertional dyspnea HPI: 52-year-old male with history of COPD, p rior tobacco abuse, and hyperlipidemia who presented initially to an outside ED in [place] for sudden onset palpitations. He described mild associated chest pain but no shortness of breath. Symptoms lasted for a few hours before f inally resolving on its own. Workup at the outside ED was unremarkable includ ing chest x-ray and CT head. Initial cardiac enzyme sets were negative. Patient has been referred here for further manag ement History Past medical history: Reports: COPD, Hypertension. Additional medical history: HLD Additional surgical history: Denies any surgical history Family history: Reports: Heart disease, Hypertension. Smoking status for patients 13 years old or olde r: Former Smoker Medication/Allergy-Vaccine Hx Allergies: Coded Allergies: No Known Allergies (07/03/18) Review of Systems Additional notes: All the 14 point review of systems negative exce pt for those mentioned in HPI Physical Exam VS/I O Vital Signs: Date Time Temp Pulse Resp B/P B/P Pulse O2 O2 F low FiO2 Mean Ox Delivery Rate 07/03 1903 98.2 76 19 161/75 103.7 95 07/03 1556 98.1 68 16 116/65 81.8 97 Room air 07/03 1103 97.9 64 15 130/82 97.7 96 Room air 07/03 0800 Nasal 2.289916 cannula 07/03 0653 97.9 72 16 123/75 91.0 94 Room air 07/03 0300 Nasal 2.604891 cannula 07/03 0153 98.1 80 20 126/81 95.7 95 General appearance: alert, awake, oriented HEENT : normocephalic ,Atraumatic Eyes: Eyes normal inspection. ENT: Dry mucous membranes present. Neck: Normal inspection. Neck supple. CVS: Normal heart rate and rhythm. Heart sounds normal. Respiratory: No respiratory distress. Breath mona nds normal. Abdomen: Soft and nontender. Back: Normal inspection. Skin: Skin warm. Normal skin color. No rash. Extremities: No lower extremity edema. Neuro: Oriented X 3. No motor deficit No generalized lymph adenopathy Psych normal affect Results Findings/Data: Laboratory Tests: 07/03 07/03 07/03 1400 0513 0228 Chemistry Phosphorus (2.5 - 4.9 MG/DL) 3.1 Magnesium (1.8 - 2.4 MG/DL) 2.0 Total Creatine Kinase (26 - 192 Unit/L) 52 68 7 8 Troponin I (0.000 - 0.045 NG/ML) < 0.015 < 0.01 5 < 0.015 Triglycerides (0 - 150 MG/DL) 654 H Cholesterol (133 - 200 MG/DL) 237 H LDL Cholesterol Measurd (0 - 129 MG/DL) 138 H Non-HDL Cholesterol (<130 mg/dL) 203 H HDL Cholesterol (40 - 59 MG/DL) 34 L LDL/HDL Ratio (1.48 - 3.22 Avg Ratio) 4.05 H Cholesterol/HDL Ratio (0 RATIO) 6.97 07/03 227 Chemistry Sodium (134 - 147 mmol/L) 140 Potassium (3.4 - 5.0 mmol/L) 3.6 Chloride (100 - 108 mmol/L) 106 Carbon Dioxide (21 - 32 mmol/L) 24 Anion Gap (4.0 - 15.0 GAP calc) 10.0 BUN (7 - 18 MG/DL) 16 Creatinine (0.8 - 1.3 MG/DL) 1.1 Glomerular Filtr Rate (>60 estGFR) >=60 max est imate Glucose (70 - 110 MG/DL) 149 H Calcium (8.5 - 10.1 MG/DL) 8.1 L Total Bilirubin (0.2 - 1.2 MG/DL) 0.20 AST (15 - 37 Unit/L) 23 ALT (12 - 78 Unit/L) 55 Total Alk Phosphatase (50 - 136 Unit/L) 101 Total Protein (6.4 - 8.2 G/DL) 7.1 Albumin (3.4 - 5.0 G/DL) 3.5 Globulin (GM/dL) 3.6 Albumin/Globulin Ratio (1.2 - 2.2 RATIO) 1.0 L Coagulation D-Dimer (215 - 500 ng/mLFEU) 518 *H Hematology WBC (3.5 - 11.0 K/mm3) 9.4 RBC (4.70 - 6.10 M/mm3) 4.77 Hgb (12.3 - 15.9 G/DL) 14.6 Hct (35.8 - 46.7 %) 43.5 MCV (86.3 - 98.9 Fl) 91.2 MCH (28.9 - 34.4 pg) 30.6 MCHC (32.1 - 34.5 G/DL) 33.6 RDW (11.5 - 14.5 SD) 13.3 Plt Count (150 - 450 K/mm3) 208.0 MPV (7.0 - 9.6 fL) 12.60 H Neut % (Auto) (40 - 76 %) 63.8 Lymph % (Auto) (20.5 - 51.1 %) 29.3 [place] % (Auto) (1.7 - 9.3 %) 5.4 Eos % (Auto) (0.0 - 6.0 %) 1.2 Baso % (Auto) (0.0 - 2.0 %) 0.3 Neut # (Auto) (1.8 - 7.6 K/mm3) 6.01 Lymph # (Auto) (0.6 - 3.0 K/mm3) 2.8 [place] # (Auto) (0.2 - 1.5 K/mm3) 0.5 Eos # (Auto) (0.0 - 0.4 K/mm3) 0.1 Baso # (Auto) (0.0 - 0.2 K/mm3) 0.0 Add Manual Diff (CRITERIA DIFF/SCN) NO Radiology data: Recent Impressions: RADIOLOGY - XR CHEST 1 V 07/03 1116 Report Impression - Status: SIGNED Entered: 07/03/2018 1217 IMPRESSION: Negative chest X-ray. Impression By: CarlaAJCindy Chin M.D. Diagnosis, Assessment Plan Free Text A P: Chest pain to rule out ACS Palpitations Dizziness Exertional dyspnea COPD? History of tobacco abuse Hyperlipidemia Hypertriglyceridemia Plan Trend cardiac enzymes serial EKGs Monitor under telemetry Cardiology consult Advised smoking cessation Bronchodilators as needed GI/DVT prophylaxis advanced directive full code at 1815 RPT #: [id number] END OF REPORT
--- NOTE | 2023-01-04 03:22 | EDPHYS ---
Physician Documentation [facility] Name: Amandeep Emerson Age: 57 yrs Sex: Male : 1965 Arrival Date: 01/04/2023 Time: 02:24 Bed 8 Private MD: DONNELL Physician Glen Burgos HPI: 01/04 03:13 This 57 yrs old Male presents to ER via Ambulatory with complaints of Arm anthony Pain, Breathing Difficulty, Back Pain. 03:13 The patient or guardian complains of pain, that is acute. The complaints affect the anthony left bicep, dorsal aspect of left forearm, left tricep and palmar aspect of left forearm. Context: The problem was sustained at home, resulted from unknown cause. Onset: The symptoms/episode began/occurred yesterday. Treatment prior to arrival includes: no previous treatment. Modifying factors: The symptoms are alleviated by nothing. the symptoms are aggravated by nothing. Associated signs and symptoms: The patient has no apparent associated signs or symptoms. Severity of symptoms: At their worst the symptoms were mild, moderate, in the emergency department the symptoms have improved, markedly. The patient has experienced similar episodes in the past, several times. Historical: - Allergies: 02:33 No Known Allergies; cm10 - PMHx: 02:33 COPD; Headaches; High Cholesterol; Hypertension; cm10 - PSHx: 02:33 hand; cm10 - Immunization history:: Adult Immunizations unknown. - Social history:: Smoking status: Patient denies any tobacco usage or history of. ROS: 03:14 Constitutional: Negative for fever, chills, and weight loss, Eyes: Negative for injury, anthony pain, redness, and discharge, ENT: Negative for injury, pain, and discharge, Neck: Negative for injury, pain, and swelling, Abdomen/GI: Negative for abdominal pain, nausea, vomiting, diarrhea, and constipation, Back: Negative for injury and pain, : Negative for injury, bleeding, discharge, and swelling, MS/Extremity: Negative for injury and deformity, Skin: Negative for injury, rash, and discoloration, Neuro: Negative for headache, weakness, numbness, tingling, and seizure, Psych: Negative for depression, anxiety, suicide ideation, homicidal ideation, and hallucinations, Allergy/Immunology: Negative for hives, rash, and allergies, Endocrine: Negative for neck swelling, polydipsia, polyuria, polyphagia, and marked weight changes, Hematologic/Lymphatic: Negative for swollen nodes, abnormal bleeding, and unusual bruising. 03:14 Cardiovascular: Positive for chest pain. 03:14 Respiratory: Positive for shortness of breath, at rest. Exam: 03:14 Constitutional: This is a well developed, well nourished patient who is awake, alert, anthony and in no acute distress. Head/Face: Normocephalic, atraumatic. Eyes: Pupils equal round and reactive to light, extra-ocular motions intact. Lids and lashes normal. Conjunctiva and sclera are non-icteric and not injected. Cornea within normal limits. Periorbital areas with no swelling, redness, or edema. ENT: Nares patent. No nasal discharge, no septal abnormalities noted. Tympanic membranes are normal and external auditory canals are clear. Oropharynx with no redness, swelling, or masses, exudates, or evidence of obstruction, uvula midline. Mucous membranes moist. Neck: Trachea midline, no thyromegaly or masses palpated, and no cervical lymphadenopathy. Supple, full range of motion without nuchal rigidity, or vertebral point tenderness. No Meningismus. Chest/axilla: Normal chest wall appearance and motion. Nontender with no deformity. No lesions are appreciated. Cardiovascular: Regular rate and rhythm with a normal S1 and S2. No gallops, murmurs, or rubs. Normal PMI, no JVD. No pulse deficits. Respiratory: Lungs have equal breath sounds bilaterally, clear to auscultation and percussion. No rales, rhonchi or wheezes noted. No increased work of breathing, no retractions or nasal flaring. Abdomen/GI: Soft, non-tender, with normal bowel sounds. No distension or tympany. No guarding or rebound. No evidence of tenderness throughout. Back: No spinal tenderness. No costovertebral tenderness. Full range of motion. Male : Normal genitalia with no discharge or lesions. Skin: Warm, dry with normal turgor. Normal color with no rashes, no lesions, and no evidence of cellulitis. MS/ Extremity: Pulses equal, no cyanosis. Neurovascular intact. Full, normal range of motion. Neuro: Awake and alert, GCS 15, oriented to person, place, time, and situation. Cranial nerves II-XII grossly intact. Motor strength 5/5 in all extremities. Sensory grossly intact. Cerebellar exam normal. Normal gait. Psych: Awake, alert, with orientation to person, place and time. Behavior, mood, and affect are within normal limits. 03:14 ECG was reviewed by the Attending Physician. Vital Signs: 02:32 BP 157 / 101; Pulse 85; Resp 18; Temp 98.4; Pulse Ox 95% ; cm10 03:30 Weight 113.85 kg; Height 6 ft. 2 in. ; rv1 04:23 BP 159 / 97; Pulse 86; Resp 19 S; Pulse Ox 98% on R/A; lg3 04:50 BP 138 / 95; Pulse 78; Resp 19; Pulse Ox 96% on R/A; kd3 06:12 BP 127 / 77; Pulse 73; Resp 16; Pulse Ox 98% on R/A; kd3 06:59 BP 119 / 79; Pulse 75; Resp 19; Pulse Ox 94% on R/A; kd3 03:30 Body Mass Index 32.23 (113.85 kg, 187.96 cm) rv1 MDM: 02:36 Patient medically screened. anthony 03:15 Differential diagnosis: Anemia Bronchitis CHF exacerbation, Chronic Obstructive anthony Pulmonary Disease Myocardial Infarction pneumonia, pulmonary edema, Pulmonary Embolism reactive airway disease. Antibiotic administration: Not indicated. HEART Score: History: Slightly Suspicious (0), ECG: Normal (0), Age: > 45 and < 65 years (1), Risk Factors: > or = 3 Risk factors for atherosclerotic disease (2), [Hypercholesterolemia] [Hypertension] [+ Family HX] [Obesity] Troponin: < or = 1 x Normal Limit (0). The patient was given aspirin in the Emergency Department. JACQUIE Risk Score: 1 - Three or more CAD risk factors, [Family Hx], [HTN], [Elevated Cholesterol]. Immunization status: Influenza vaccine: Data reviewed: vital signs, nurses notes, lab test result(s), EKG, radiologic studies, plain films. Consideration of Admission/Observation Patient was admitted/placed on observation. Escalation of care including admission/observation considered. I considered the following discharge prescriptions or medication management in the emergency department Medications were administered in the Emergency Department. See MAR. Independent interpretation of the following test(s) in the Emergency Department EKG: See my EKG interpretation above. Test considered but Not performed: Ultrasound no echo . Care significantly affected by the following chronic conditions: Hypertension, Chronic Obstructive Pulmonary Disease, Obesity, high cholesterol. 01/04 02:38 Order name: Basic Metabolic Panel; Complete Time: 05:20 [facility] 01/04 02:38 Order name: CBC with Diff; Complete Time: 03:49 [facility] 01/04 02:38 Order name: LFT's; Complete Time: 05:20 [facility] 01/04 02:38 Order name: Magnesium; Complete Time: 05:20 [facility] 01/04 02:38 Order name: NT PRO-BNP; Complete Time: 05:20 [facility] 01/04 02:38 Order name: PT-INR; Complete Time: 03:49 [facility] 01/04 02:38 Order name: Troponin HS; Complete Time: 05:20 [facility] 01/04 02:38 Order name: Lipase; Complete Time: 05:20 [facility] 01/04 02:38 Order name: SARS RAPID; Complete Time: 03:49 [facility] 01/04 02:38 Order name: Flu; Complete Time: 05:20 [facility] 01/04 05:34 Order name: Troponin High Sensitivity; Complete Time: 07:55 [facility] 01/04 02:38 Order name: XRAY Chest (1 view) [facility] 01/04 03:13 Order name: CT Aorta for Dissection [facility] 01/04 02:38 Order name: EKG; Complete Time: 02:39 [facility] 01/04 03:27 Order name: CONS Physician Consult [facility] 01/04 02:38 Order name: Cardiac monitoring; Complete Time: 03:05 [facility] 01/04 02:38 Order name: EKG - Nurse/Tech; Complete Time: 03:05 [facility] 01/04 02:38 Order name: IV Saline Lock; Complete Time: 03:24 [facility] 01/04 02:38 Order name: Labs collected and sent; Complete Time: 03:24 [facility] 01/04 02:38 Order name: O2 Per Protocol; Complete Time: 03:05 [facility] 01/04 02:38 Order name: O2 Sat Monitoring; Complete Time: 03:05 [facility] EC:14 Rate is 82 beats/min. Rhythm is regular. QRS [place] is Normal. MS interval is normal. QRS anthony interval is normal. QT interval is normal. No Q waves. T waves are Normal. No ST changes noted. Clinical impression: NSR w/ Non-specific ST/T Changes and No evidence of ischemia. Interpreted by me. Reviewed by me. Administered Medications: 03:33 Drug: Magnesium Sulfate IVPB 2 grams Route: IVPB; Infused Over: 2 hrs; Site: right kd3 antecubital; 04:22 Follow up: Response: No adverse reaction; IV Status: Completed infusion; IV Intake: lg3 100ml 03:33 Drug: Albuterol Inhalation 7.5 mg Route: Inhalation; kd3 04:22 Follow up: Response: No adverse reaction lg3 03:33 Drug: Ipratropium Inhalation Aerosol 0.5 mg Route: Inhalation; kd3 04:22 Follow up: Response: No adverse reaction lg3 03:33 Drug: MethylPrednisoLONE IVP 125 mg Route: IVP; Site: right antecubital; kd3 04:22 Follow up: Response: No adverse reaction lg3 03:33 Drug: Famotidine IVP 20 mg Route: IVP; Site: right antecubital; kd3 04:22 Follow up: Response: No adverse reaction lg3 03:33 Drug: Lisinopril PO 20 mg Route: PO; kd3 04:21 Follow up: Response: No adverse reaction lg3 03:33 Drug: Aspirin PO Chewable Tablet 324 mg Route: PO; kd3 04:21 Follow up: Response: No adverse reaction lg3 03:34 Drug: NS 0.9% IV 1000 ml Route: IV; Rate: 125 ml/hr; Site: right antecubital; kd3 04:22 Follow up: Response: No adverse reaction; IV Status: Infusion continued upon admission lg3 Disposition Summary: 01/04/23 03:21 Hospitalization Ordered Hospitalization Status: Observation anthony Provider: Russell Grayson cha Condition: Fair anthony Problem: new anthony Symptoms: have improved anthony Bed/Room Type: Standard anthony Location: Telemetry/MedSurg (observation)(01/04/23 09:43) eb Room Assignment: 416(01/04/23 09:43) eb Diagnosis - Chest pain, unspecified anthony - COPD/ Chronic obstructive pulmonary disease with (acute) exacerbation anthony Forms: - Medication Reconciliation Form anthony - SBAR form anthony Signatures: Dispatcher [employer] EDGlen Wetzel MD MD cha Garcia, Cindy RN Yoli Carlson Kyli, RN RN kd3 Abigail Carbajal RN RN cm10 Diana Hale RN lg3 Corrections: (The following items were deleted from the chart) 03:21 Telemetry/MedSurg (observation) [facility] cg 18 03:21 [facility] cg 04:18 [facility] ER [facility]
--- NOTE | 2023-01-04 03:22 | ER ---
Nurse's Notes [facility] Name: Amandeep Emerson Age: 57 yrs Sex: Male : 1965 Arrival Date: 01/04/2023 Time: 02:24 Bed 8 Private MD: Diagnosis: Chest pain, unspecified;COPD/ Chronic obstructive pulmonary disease with (acute) exacerbation Presentation: 01/04 02:32 Chief complaint: Patient states: shortness of breath onset tonight. Pt has a history of cm10 COPD and has been doing breathing treatment at home. Pt states that he feels like his heart is pounding. Coronavirus screen: Vaccine status: Patient reports being unvaccinated. Client denies travel out of the [place] in the last 14 days. Ebola Screen: Patient denies travel to an Ebola-affected area in the 21 days before illness onset. No symptoms or risks identified at this time. Initial Sepsis Screen: Does the patient meet any 2 criteria? No. Patient's initial sepsis screen is negative. Does the patient have a suspected source of infection? No. Patient's initial sepsis screen is negative. Risk Assessment: Do you want to hurt yourself or someone else? Patient reports no desire to harm self or others. Onset of symptoms was January 04, 2023. 02:32 Method Of Arrival: Ambulatory 10 02:32 Acuity: JOCELYN 3 cm10 Triage Assessment: 04:51 General: Appears in no apparent distress. Behavior is calm, cooperative. Neuro: Level kd3 of Consciousness is awake, alert, obeys commands, Oriented to person, place, time, situation. Respiratory: Onset: The symptoms/episode began/occurred gradually. Respiratory: Airway is patent Trachea midline Respiratory effort is even, unlabored, Respiratory pattern is regular, symmetrical. Historical: - Allergies: 02:33 No Known Allergies; cm10 - PMHx: 02:33 COPD; Headaches; High Cholesterol; Hypertension; cm10 - PSHx: 02:33 hand; cm10 - Immunization history:: Adult Immunizations unknown. - Social history:: Smoking status: Patient denies any tobacco usage or history of. Screenin:22 [facility] ED Fall Risk Assessment (Adult) History of falling in the last 3 months, lg3 including since admission No falls in past 3 months (0 pts). Abuse screen: Denies threats or abuse. Denies injuries from another. Nutritional screening: No deficits noted. Tuberculosis screening: No symptoms or risk factors identified. Assessment: 03:22 General: Appears in no apparent distress. comfortable, Behavior is calm, cooperative. lg3 Pain: Complains of pain in back. Neuro: No deficits noted. Elizabeth Agitation-Sedation Scale (RASS): 0 - Alert and Calm Level of Consciousness is awake, alert, obeys commands, Oriented to person, place, time, situation. Cardiovascular: Reports shortness of breath, Denies chest pain, Capillary refill < 3 seconds Clubbing of nail beds is absent JVD is absent Patient's skin is warm and dry. Rhythm is sinus rhythm. Respiratory: No deficits noted. Reports shortness of breath Airway is patent Respiratory effort is even, unlabored, Respiratory pattern is regular, symmetrical, Breath sounds are clear bilaterally. the patient has mild shortness of breath. GI: No deficits noted. No signs and/or symptoms were reported involving the gastrointestinal system. Abdomen is round non-distended. : No deficits noted. No signs and/or symptoms were reported regarding the genitourinary system. EENT: No deficits noted. No signs and/or symptoms were reported regarding the EENT system. Derm: No deficits noted. No signs and/or symptoms reported regarding the dermatologic system. Skin is intact, is healthy with good turgor, Skin is dry, Skin is normal, Skin temperature is warm. Musculoskeletal: No deficits noted. Circulation, motion, and sensation intact. Range of motion: intact in all extremities, Reports pain in back. 04:24 Reassessment: Patient appears in no apparent distress at this time. No changes from lg3 previously documented assessment. Patient and/or family updated on plan of care and expected duration. Pain level reassessed. Patient is alert, oriented x 3, equal unlabored respirations, skin warm/dry/pink. Patient states symptoms have improved. Vital Signs: 02:32 BP 157 / 101; Pulse 85; Resp 18; Temp 98.4; Pulse Ox 95% ; cm10 03:30 Weight 113.85 kg; Height 6 ft. 2 in. ; rv1 04:23 BP 159 / 97; Pulse 86; Resp 19 S; Pulse Ox 98% on R/A; lg3 04:50 BP 138 / 95; Pulse 78; Resp 19; Pulse Ox 96% on R/A; kd3 06:12 BP 127 / 77; Pulse 73; Resp 16; Pulse Ox 98% on R/A; kd3 06:59 BP 119 / 79; Pulse 75; Resp 19; Pulse Ox 94% on R/A; kd3 03:30 Body Mass Index 32.23 (113.85 kg, 187.96 cm) rv1 ED Course: 02:27 Patient arrived in ED. ag3 02:33 Triage completed. cm10 02:34 Arm band placed on. cm10 02:36 Glen Burgos MD is Attending Physician. anthony 03:11 XRAY Chest (1 view) In Process Unspecified. EDMS 03:16 India Guzman, RANDY is Primary Nurse. kd3 03:19 Russell Grayson MD is Hospitalizing Provider. anthony 03:22 Patient has correct armband on for positive identification. Placed in gown. Bed in low lg3 position. Call light in reach. Side rails up X 1. Client placed on continuous cardiac and pulse oximetry monitoring. NIBP monitoring applied. support dba on. Door closed. Noise minimized. Warm blanket given. 03:22 Inserted saline lock: 20 gauge in right antecubital area, using aseptic technique. lg3 Blood collected. Patient maintains SpO2 saturation greater than 95% on room air. 03:24 Troponin HS Sent. lg3 03:24 PT-INR Sent. lg3 03:24 NT PRO-BNP Sent. lg3 03:24 Magnesium Sent. lg3 03:24 LFT's Sent. lg3 03:24 CBC with Diff Sent. lg3 03:24 Basic Metabolic Panel Sent. lg3 03:24 Lipase Sent. lg3 03:30 Flu Sent. lg3 03:30 SARS RAPID Sent. lg3 04:24 No provider procedures requiring assistance completed. Patient admitted, IV remains in lg3 place. No redness/swelling at site. 04:51 Provided Education on: . kd3 Administered Medications: 03:33 Drug: Magnesium Sulfate IVPB 2 grams Route: IVPB; Infused Over: 2 hrs; Site: right kd3 antecubital; 04:22 Follow up: Response: No adverse reaction; IV Status: Completed infusion; IV Intake: lg3 100ml 03:33 Drug: Albuterol Inhalation 7.5 mg Route: Inhalation; kd3 04:22 Follow up: Response: No adverse reaction lg3 03:33 Drug: Ipratropium Inhalation Aerosol 0.5 mg Route: Inhalation; kd3 04:22 Follow up: Response: No adverse reaction lg3 03:33 Drug: MethylPrednisoLONE IVP 125 mg Route: IVP; Site: right antecubital; kd3 04:22 Follow up: Response: No adverse reaction lg3 03:33 Drug: Famotidine IVP 20 mg Route: IVP; Site: right antecubital; kd3 04:22 Follow up: Response: No adverse reaction lg3 03:33 Drug: Lisinopril PO 20 mg Route: PO; kd3 04:21 Follow up: Response: No adverse reaction lg3 03:33 Drug: Aspirin PO Chewable Tablet 324 mg Route: PO; kd3 04:21 Follow up: Response: No adverse reaction lg3 03:34 Drug: NS 0.9% IV 1000 ml Route: IV; Rate: 125 ml/hr; Site: right antecubital; kd3 04:22 Follow up: Response: No adverse reaction; IV Status: Infusion continued upon admission lg3 Medication: 04:24 VIS not applicable for this client. lg3 Intake: 04:22 IV: 100ml; Total: 100ml. lg3 Outcome: 03:21 Decision to Hospitalize by Provider. anthony 04:24 Admitted to ER Hold. Please see [facility] for further documentation. lg3 04:24 Condition: stable 04:24 Instructed on the need for admit, Demonstrated understanding of instructions. 10:25 Patient left the ED. ko1 Signatures: Dispatcher [employer] EDGlen Wetzel MD MD cha Gomez, Alice ag3 Gibson, Lacie RN RN lg3 India Guzman RN RN kd3 Virginia Camejo RN RN ko1 Gayle Acosta1 Abigail Carbajal, RN RN cm10
[2023-01-04 03:30] LABS: Absolute Lymphocytes (CBC) 2.4 K/uL (0.7-4.9); Hematocrit 43.4 % (39.6-49.0); Lymphocytes % 30.7 % (15.3-44.8); MCV 89.6 fL (80-100); MPV 9.9 fL (7.6-11.3); Platelets 176 thou/uL (152-406); RBC Red Blood Cell Count 4.84 M/uL (4.33-5.43)
[2023-01-04] MEDS ORDERED: lisinopriL 20 MG TAB ONE (03:30)
[2023-01-04] MEDS ORDERED: METHYLPREDNISOLONE 125 MG INJ ONE ×2 (03:30→08:50)
[2023-01-04] MEDS ORDERED: NA CHLORIDE 0.9% 1,000 ML ONE (03:31)
[2023-01-04] MEDS ORDERED: ASPIRIN 81 MG CHEWABLE TABLET ONE (03:31)
[2023-01-04] MEDS ORDERED: IPRATROPIUM BROM 0.5MG/2.5ML ONE ×2 (03:31→08:02)
[2023-01-04] MEDS ORDERED: ALBUTEROL 2.5 MG/3 ML NEB SOL ONE ×2 (03:31→08:02)
[2023-01-04] MEDS ORDERED: Magnesium Sulfate 2gm IVPB 2 G/50 ML BAG IV ONE (03:31)
[2023-01-04] MEDS ORDERED: FAMOTIDINE 20 MG/2 ML VIAL IV ONE ×2 (03:31→08:50)
[2023-01-04 03:33] LABS: Protime INR 0.96
[2023-01-04 03:48] LABS: SARS-CoV-2 Antigen Rapid Res Negative (Negative)
[2023-01-04 03:48] LABS: ALT/SGPT 65 U/L (16-61); AST/SGOT 22 U/L (15-37); Albumin 3.7 g/dL (3.4-5.0); Alkaline Phosphatase 97 U/L (45-117); BUN Blood Urea Nitrogen 13 mg/dL (7-18); Bicarbonate 25 mEq/L (21-32); Bilirubin Total 0.2 mg/dL (0.2-1.0); Glomerular Filtration Rate 93 ml/min (=/>90); Glucose Level 152 mg/dL (74-106); Lipase 47 U/L (13-75); Magnesium 2.3 mg/dL (1.6-2.4); Potassium 3.5 mEq/L (3.5-5.1); Protein, Total 7.5 g/dL (6.4-8.2); Sodium Level 139 mEq/L (136-145); Troponin High Sensitivity 4.2 pg/mL (<58.9)
[2023-01-04 03:51] LABS: Bilirubin Direct < 0.1 mg/dL (0-0.2); Bilirubin Indirect, Calculated ND mg/dL (0.2-0.8); NT PRO-BNP < 5 pg/mL (<125)
[2023-01-04] MEDS ORDERED: ONDANSETRON 4 MG/2 ML VIAL IV PRN (04:39)
[2023-01-04] MEDS ORDERED: MORPHINE 4 MG/ML SYR IV PRN (04:39)
[2023-01-04] MEDS ORDERED: ACETAMINOPHEN 325 MG TABLET PO PRN (04:42)
[2023-01-04 05:03] VITALS: BMI 32.2
[2023-01-04] MEDS ORDERED: ONDANSETRON 4 MG/2 ML VIAL ONE (05:09)
[2023-01-04] MEDS ORDERED: MORPHINE 4 MG/ML SYR ONE (05:09)
[2023-01-04] MEDS: ALBUTEROL 2.5 MG/3 ML NEB SOL NEB SCH ×3 (08:15→20:45)
[2023-01-04] MEDS: IPRATROPIUM BROM 0.5MG/2.5ML NEB SCH ×3 (08:15→20:45)
[2023-01-04] MEDS: FAMOTIDINE 20 MG/2 ML VIAL IV SCH ×2 (08:43→20:55)
[2023-01-04] MEDS: METHYLPREDNISOLONE 40 MG INJ IV SCH ×2 (08:43→16:35)
[2023-01-04] MEDS: ASPIRIN EC 81 MG TAB PO SCH (08:43)
[2023-01-04] MEDS: ENOXAPARIN 100 MG/ML SYR SQ SCH ×2 (08:43→20:55)
[2023-01-04] MEDS ORDERED: ENOXAPARIN 100 MG/ML SYR SQ ONE (08:50)
[2023-01-04] MEDS ORDERED: ASPIRIN EC 81 MG TAB PO ONE (08:50)
--- NOTE | 2023-01-04 16:15 | CON ---
Date of Consultation: 01/04/2023 Reason For Consultation: Chest pain. History Of Present Illness: A 57-year-old male with a past medical history of dyslipidemia, hyperten jamin, COPD, who presented to the emergency room with chest pain that radiates to his left shoulder al pankaj with shortness of breath on exertion, especially working outside in the heat. He has no exertion al chest pain. No nausea, vomiting, or diuresis, but he has shortness of breath on exertion. Past Medical History: COPD, dyslipidemia, hypertension. Medications: Refer to reconciliation sheet for detailed list. Allergies: NO KNOWN DRUG ALLERGIES. Family History: No premature coronary artery disease or cancer. Social History: Does not smoke or drink. Does not use any drugs. Review of Systems: All systems reviewed and they were negative except what mentioned in HPI. Physical Examination: Vital Signs: Reviewed. Head and Neck: Pupils are equal, reactive to light. Intact eye movements. No JVD. No cervical lym phadenopathy. Neck is supple. Thyroid is not enlarged. Lungs: Clear to auscultation bilaterally. No rhonchi, wheezing, or crackles. No accessory muscle u se. Heart: Regular rate and rhythm. No extra sounds. Abdomen: Soft, nontender. Bowel sounds positive. No organomegaly. No masses or hernia. No rigidi ty or rebound. Extremities: No edema, clubbing, or cyanosis. Intact pulses. Skin: No rash. Neurologic: Alert, awake, oriented x3. No acute focal deficits appreciated. Lymph Nodes: No cervical or axillary lymphadenopathy. Investigations: Troponins x2 are negative. BUN 13, creatinine 0.9, and hemoglobin is 14.3. Assessment And Recommendations: 1.Chest pain, atypical features. Had 2 troponins so far negative, but they were very close to each other. Repeat another troponin now. If it is negative, then the patient can be released and follow the patient as an outpatient for a stress test and an echo. 2.Hypertension. Blood pressure is controlled. Continue current management. 3.Hyperlipidemia. Recommend to start 40 mg of Lipitor at bedtime. SR/MODL Voice ID: [id number] Report ID: [id number]
[2023-01-04] MEDS: METOPROLOL TAR 50 MG TAB PO SCH (16:35)
--- NOTE | 2023-01-04 19:16 | RAD REPORT ---
EXAM DESCRIPTION: 1. CT CHEST angiography with intravenous contrast 2. CT ABDOMEN and PELVIS angiography with intravenous contrast CLINICAL HISTORY: 57 years Male DISSECTION TECHNIQUE: Following the administration of intravenous contrast, multiple high-resolution axial imag es of the chest, abdomen and pelvis were performed followed by sagittal and coronal reconstructed vandana ges. Coronal and sagittal MIP images were also performed.The CT study is performed according to ALARA (as low as reasonably achievable) or ALARA/IMAGE GENTLY, with automatic adjustment of mA and/or kV a ccording to patient size. Performed on: 01/04/2023 at 4:35 AM COMPARISON: No prior studies were available for comparison. FINDINGS: CTA CHEST: There is satisfactory visualization and contrast opacification of pulmonary arteries. No definite i ntra-arterial filling defects are identified to suggest acute or chronic pulmonary embolism. The thor acic aorta is normal in caliber and contour without evidence of aneurysm or dissection. The lungs are well expanded and are clear. There is no evidence of a pneumothorax. There are no pleur al effusions. The central airways are patent. The heart is normal in size. There is no pericardial effusion. There is no evidence of hilar, mediastinal or axillary lymphadenopathy. No acute osseous abnormality is identified. Non-Angiographic Findings: The thyroid gland is normal in size and configuration. CTA ABDOMEN AND PELVIS: Liver: The liver is normal in size and configuration. No focal hepatic abnormalities are identified. There is decreased attenuation of the liver which may be related to underlying fatty infiltration. Th is appearance may be accentuated by the arterial phase of contrast-enhancement. Spleen: The spleen is normal is size, configuration and attenuation. Gallbladder and bile duct: The gallbladder is well distended and unremarkable. There is no biliary ductal dilatation. Pancreas: The pancreas is grossly normal in size and configuration. Adrenal Glands: The adrenal glands are normal in size and configuration. Kidneys: The kidneys are normal in size and configuration. There is no evidence of hydronephrosis. Th ere is no evidence of nephrolithiasis. No definite solid or cystic renal mass lesions are identified. Stomach: The stomach is grossly normal. There is no definite hiatal hernia. Bowel: The bowel gas pattern is non specific and non obstructive. Appendix: The appendix is normal. Free air: There is no evidence of free air. Free fluid: There is no evidence of free fluid. Vasculature: The aorta is normal in caliber and contour. The celiac artery, superior mesenteric arter y and inferior mesenteric artery are patent and are grossly normal in caliber and contour. There are 2 renal arteries bilaterally. The renal arteries are patent and are grossly unremarkable. The iliac a rteries and femoral arteries are normal in caliber and contour. The inferior vena cava is grossly unr emarkable. Lymphadenopathy: No pathologic lymphadenopathy is identified. There are multiple small, nonspecific c entral mesenteric lymph nodes Bladder: The bladder is well distended and smooth in contour. Reproductive: The uterus is grossly within normal limits. Bones: No acute osseous abnormalities are identified. Soft tissues: No acute soft tissue abnormalities are identified. There are small bilateral fat-contai amandeep inguinal hernias. There is a fely appearance to the central mesenteric fat which is nonspecific but can be seen with sclerosing mesenteritis. There are multiple small mesenteric lymph nodes in thi s location. IMPRESSION: CTA CHEST: 1. No evidence of pulmonary embolism, aortic aneurysm or aortic dissection. 2. No evidence of acute intrathoracic disease. CTA ABDOMEN AND PELVIS: 1. There is no CT evidence of aortic aneurysm or dissection. 2. Decreased attenuation of the liver which may be related to underlying fatty infiltration. This a ppearance may be accentuated by the arterial phase of contrast-enhancement. 3. Small bilateral fat-containing inguinal hernias. 4. Fely appearance to the central mesenteric fat which is nonspecific but can be seen with scleros ing mesenteritis. Electronically signed by: Eva Manzo DO 01/04/2023 6:02 AM CDT Due to temporary technical issues with the PACS/Fluency reporting system, reports are being signed by the in house radiologists without review as a courtesy to insure prompt reporting. The interpreting radiologist is fully responsible for the content of the report.
--- NOTE | 2023-01-04 19:24 | RAD REPORT ---
EXAM DESCRIPTION: XR Chest, 1 View CLINICAL HISTORY: CHEST PAIN TECHNIQUE: Frontal view of the chest. COMPARISON: XR Chest dated 10/30/2022 FINDINGS: Lungs: Coarsened interstitial markings. No focal consolidation. Pleural space: Unremarkable. No pneumothorax. Heart: Unremarkable. No cardiomegaly. Mediastinum: Unremarkable. Bones/joints: Unremarkable. Vasculature: Thoracic aortic atherosclerosis. IMPRESSION: No acute disease. Electronically signed by: Caitlin Parker MD 01/04/2023 3:43 AM CDT Due to temporary technical issues with the PACS/Fluency reporting system, reports are being signed by the in house radiologists without review as a courtesy to insure prompt reporting. The interpreting radiologist is fully responsible for the content of the report.
[2023-01-05 01:22] VITALS: O2SAT 98
[2023-01-05] MEDS: IPRATROPIUM BROM 0.5MG/2.5ML NEB SCH ×2 (02:20→07:58)
[2023-01-05] MEDS: ALBUTEROL 2.5 MG/3 ML NEB SOL NEB SCH ×2 (02:20→07:58)
[2023-01-05 04:02] LABS: Absolute Lymphocytes (CBC) 1.8 K/uL (0.7-4.9); Hematocrit 40.3 % (39.6-49.0); MPV 10.7 fL (7.6-11.3); Platelets 193 thou/uL (152-406); RBC Red Blood Cell Count 4.43 M/uL (4.33-5.43)
[2023-01-05 04:19] LABS: Magnesium 2.5 mg/dL (1.6-2.4); Potassium 4.6 mEq/L (3.5-5.1)
[2023-01-05 05:45] VITALS: BP 103/59; TEMP 97.6
[2023-01-05] MEDS: METOPROLOL TAR 50 MG TAB PO SCH (09:00)
[2023-01-05] MEDS ORDERED: predniSONE 20 MG TAB PO ONE (09:00)
--- NOTE | 2023-01-05 09:42 | P.CNS ---
Date of Consult: 01/05/23 Reason for Consult: Shortness of breath Chief Complaint: Shortness of breath History of Present Illness: Patient is 57 years of age and having chronic dyspnea for the past few years history of underlying obstructive airways disease patient is using albuterol nebulizer at home mild smoker was seen by turbine technician had a stress test 2 years ago has any lower extremity edema patient was admitted with chest pain Allergies No Known Allergies Allergy (Verified 01/26/20 16:03) Home Medications: Metoprolol Tartrate 100 mg PO DAILY 01/04/23 Tramadol HCl [Ultram] 50 mg PO Q4H PRN 01/04/23 - Past Medical/Surgical History Diabetic: No -: Hypertension -: none Psychosocial/ Personal History: Lives at home - Family History Father Medical History: Heart disease Sister Medical History: Heart disease - Social History Alcohol use: Yes CD- Drugs: No Caffeine use: Yes Place of Residence: Home Review of Systems 10-point ROS is otherwise unremarkable Respiratory: Cough, Shortness of Breath Physical Examination Temp Pulse Resp BP Pulse Ox 97.6 F 64 16 103/59 L 93 01/05/23 04:00 01/05/23 04:00 01/05/23 04:00 01/05/23 04:00 01/05/23 04:00 General: Alert, In no apparent distress, Oriented x3 HEENT: Atraumatic Neck: Supple Respiratory: Clear to auscultation bilaterally Cardiovascular: Regular rate/rhythm Gastrointestinal: Normal bowel sounds, Soft and benign - Problems (1) COPD exacerbation Current Visit: Yes Status: Acute Plan: Is 57 years of age admitted with chest discomfort has had chronic dyspnea for years uses albuterol he is a former smoker 5 years ago SPECT he has had underlying obstructive airways disease benefit from a long-acting bronchodilator nebulized albuterol seems to make him nervous labs chemistries all reviewed troponins are negative CT scan does not show any evidence of pulmonary embolism or dissection. Recommend discharge on Advair follow-up with me in 2 weeks will need an outpatient pulmonary function testing low-dose prednisone
[2023-01-05] MEDS ORDERED: DULERA 200/5 (MOMETASONE/FORMOTEROL) INHALER IH SCH (09:43)
[2023-01-05] MEDS ORDERED: predniSONE 10 MG TAB PO SCH (09:44)
[2023-01-05] MEDS: ENOXAPARIN 100 MG/ML SYR SQ SCH (09:55)
[2023-01-05] MEDS: ASPIRIN EC 81 MG TAB PO SCH (09:55)
[2023-01-05] MEDS: FAMOTIDINE 20 MG/2 ML VIAL IV SCH (09:55)
--- NOTE | 2023-01-05 15:33 | PN ---
Date of Progress Note: 01/05/2023 Patient states he feels much better today. Minimal nonexistent chest pain. However, he still has dy spnea with exertion. He was seen by Pulmonology who felt he could be discharged on an albuterol inha ler and prednisone to be followed up in 2 weeks to see him next week. He was discharged in good cond ition. He can continue on his blood pressure pills and with the addition as mentioned above of predn isone inhaler. HR/MODL Voice ID: [id number] Report ID: [id number]
--- NOTE | 2023-01-06 14:32 | PN ---
Date of Progress Note: 01/05/2023 Subjective: Seen by bedside, doing clinically well. No further chest pain. Review of Systems: No chest pain, shortness of breath, orthopnea, cough. No nausea, vomiting, diarrhea. All other syst ems reviewed and they were negative. Physical Examination: Vital Signs: Reviewed. Head and Neck: Pupils are equal, reactive to light. Intact eye movements. No JVD. No cervical lym phadenopathy. Neck is supple. Thyroid is not enlarged. Lungs: Clear to auscultation bilaterally. No rhonchi, wheezing, or crackles. No accessory muscle u se. Heart: Regular rate and rhythm. No extra sounds. Abdomen: Soft, nontender. Bowel sounds positive. No organomegaly. No masses or hernia. No rigidi ty or rebound. Extremities: No edema, clubbing, cyanosis. Intact pulses. Skin: No rash. Neurologic: Alert, awake, oriented x3. No acute focal deficits appreciated. Investigations: Cardiac enzymes negative. BUN is 13, creatinine 1.07. Assessment/recommendation: 1.Chest pain, atypical. Negative cardiac enzymes. Patient can be released from my standpoint and f ollow up as an outpatient. We will set him up for stress test and an echo as an outpatient basis. 2.Hypertension. Blood pressure is controlled. Continue current management. Cardiology will sign o ff. SR/MODL Voice ID: [id number] Report ID: [id number]
--- NOTE | 2023-01-07 15:37 | EKG ---
Test Date: 2023-01-04 Test Time: 03:01:20 Alternative Medicine Practitioner: KRYSTEN MEASUREMENT RESULTS: Intervals: Rate: 82 MA: 192 QRSD: 84 QT: 378 QTc: 441 [place]: P: 60 MA: 192 QRS: -18 T: 64 INTERPRETIVE STATEMENTS: Normal sinus rhythm Normal ECG Compared to ECG 12/30/2021 07:23:14 No significant changes Electronically Signed On 01-07-23 15:32:56 CDT by Justo Roca
--- NOTE | 2023-01-08 07:08 | ECHO ---
HEIGHT: 6 ft 2 in WEIGHT: 250 lb 15.941 oz DATE OF STUDY: 01/05/[address]: Russell Grayson MD 2-DIMENSIONAL: YES M.MODE: YES DOPPLER: YES COLOR FLOW: YES TDS: PORTABLE: YES DEFINITY: BUBBLE STUDY: DIAGNOSIS: CHEST PAIN CARDIAC HISTORY: CATHERIZATION: SURGERY: PROSTHETIC VALVE: PACEMAKER: MEASUREMENTS (cm) DIASTOLIC (NORMALS) SYSTOLIC (NORMALS) IVSd 1.1 (0.6-1.2) LA Diam 3.9 (1.9-4.0) LVEF 68% LVIDd 4.2 (3.5-5.7) LVIDs 2.6 (2.0-3.5) %FS 37% LVPWd 1.2 (0.6-1.2) Ao Diam 2.6 (2.0-3.7) 2 DIMENSIONAL ASSESSMENT: RIGHT ATRIUM: NORMAL LEFT ATRIUM: NORMAL RIGHT VENTRICLE: NORMAL LEFT VENTRICLE: NORMAL TRICUSPID VALVE: NORMAL MITRAL VALVE: NORMAL PULMONIC VALVE: NORMAL AORTIC VALVE: NORMAL PERICARDIAL EFFUSION: NONE AORTIC ROOT: NORMAL LEFT VENTRICULAR WALL MOTION: NORMAL DOPPLER/COLOR FLOW: NORMAL COMMENTS: 1. NORMAL LEFT VENTRICULAR EJECTION FRACTION 60-65% 2. NORMAL WALL MOTION 3. NORMAL DIASTOLIC FUNCTION TECHNOLOGIST: ELHAM CALDERON
== END 2023-01-05 11:57 | disposition home or self-care (01) ==
LOC: ER 02:24 → ERHOLD 04:28 → 4TH 10:08
PROVIDERS: ADMIT Family Medicine; ATTEND Family Medicine
DX: R07.89 Other chest pain (principal); E78.5 Hyperlipidemia, unspecified; I10 Essential (primary) hypertension; J44.1 Chronic obstructive pulmonary disease with (acute) exacerbation; Z87.891 Personal history of nicotine dependence; Z20.822 Contact with and (suspected) exposure to COVID-19
CPT/HCPCS: 96365; 93005 ×2; 93306; 85025 ×2; 80048 ×2; 36415 ×2; 83735 ×2; 85610; 80076; 84484 ×3; 83690; 83880; 87804 ×2; 71275; 74175; 71045; 94640 ×4; 96375; 99285; 87811; Q9967; J7512; J1650 ×3; J3475; J7613 ×6; J7644 ×6; J2930 ×2; J2405; J7030; J2920; J3535

== ENCOUNTER 2023-01-09 12:44 | Emergency (ER) | payer OTHER ==
--- OUTSIDE RECORDS SUMMARY | 2023-01-09 12:47 | XMS REPORT | Continuity of Care Document ---
:1965 Author Organization [facility] t Address [address] [facility] [address] [place] [address] Care Team Providers Name Role Phone Unavailable Unavailable Unavailable Payers Payer Name Policy Type Policy Number Effective Date Expiration Date S ource Problems This patient has no known problems. Allergies, Adverse Reactions, Alerts Allergy Allergy Status Severity Reaction(s) Onset Inactive Treating Comm ents Source Name Type Date Date Clinician No Known DA Active U [facility] Allergie 07-03 Clear s 00:00: [place] 00 [facility] Social History Social Habit Start Date Stop Date Quantity Comments Source Gender identity [facility] Sexual orientation Method [facility] Sex Assigned At [birth year] [facility] 00:00:00 00:00:00 Smoking Status Start Date Stop Date Source Tobacco smoking consumption unknown [facility] Medications This patient has no known medications. Procedures This patient has no known procedures. Plan of Care Planned Activity Planned Date Details Comments Source Future Scheduled 2022-12-27 COVID-19 VACCINE [facility] Test 10:12:05 (#1) [code = COVID-19 VACCINE (#1)] Future Scheduled 2022-12-27 Screening for [facility] Test 10:12:05 malignant neoplasm of colon (procedure) [code = 538621551] Future Scheduled 2022-12-27 Screening for [facility] Test 10:12:05 malignant neoplasm of colon (procedure) [code = 895305960] Future Scheduled 2022-12-27 Screening for [facility] Test 10:12:05 malignant neoplasm of colon (procedure) [code = 624933035] Future Scheduled 2022-12-27 [facility] 10:12:05 (1 of 2) [code = SHINGLES VACCINES (1 of 2)] Future Scheduled 2022-12-27 INFLUENZA [facility]ACCINE [facility] 10:12:05 [code = INFLUENZA VACCINE] Future Scheduled 2022-12-27 Screening for [facility] Test 10:12:05 malignant neoplasm of colon (procedure) [code = 478966754] Future Scheduled 2022-12-27 Screening for [facility] Test 10:12:05 malignant neoplasm of colon (procedure) [code = 494624258] Future Scheduled 2022-12-27 Screening for [facility] Test 10:12:05 malignant neoplasm of colon (procedure) [code = 355831639] Future Scheduled 2022-12-27 COVID-[address] [facility] [facility] Test 10:12:05 (#1) [code = COVID-19 VACCINE (#1)] Future Scheduled 2022-12-27 Screening for [facility] Test 10:12:05 malignant neoplasm of colon (procedure) [code = 720565540] Future Scheduled 2022-12-27 [facility] 10:12:05 (1 of 2) [code = SHINGLES VACCINES (1 of 2)] Future Scheduled 2022-12-27 [facility]ACCINE [facility] 10:12:05 [code = INFLUENZA VACCINE] Future Scheduled 2022-12-27 Screening for [facility] Test 10:12:05 malignant neoplasm of colon (procedure) [code = 284163109] Future Scheduled 2022-12-27 Screening for [facility] Test 10:12:05 malignant neoplasm of colon (procedure) [code = 052536870] Future Scheduled 2022-12-27 Screening for [facility] Test 10:12:05 malignant neoplasm of colon (procedure) [code = 667080145] Results Test Description Test Time Test Comments Results Result [facility] e Comments - DUP EXTRACRANIAL 2018-07-05 Name: MIRTHA ERCI 17:35:00 [facility]ly [facility] : 1965 Age/S: 52 / M [address] Unit #: [id number] Loc: [place] [address] Phys: Mary Mauricio MD Acct: [id number] Dis Date: Status: ADM IN PHONE #: [phone] Exam Date: 07/05/2018 1310 FAX #: Reason: carotid bruit EXAMS: CPT: [id number] DUP EXTRACRANIAL DOLORES 60574 EXAMINATION: - DUP EXTRACRANIAL DOLORES. HISTORY: Carotid [...] of radiologists in ultrasound consensus criteria. at 1736 Reported and signed by: Bert Quinn M.D. CC: Mary Mauricio MD; Marcelino Ugalde MD Technologist: Magi Posey, RT(R),JAKE(AB) Trnohb Date/Time: 07/05/2018 (1739) CarlaANS4 PAGE 1 Signed Report Name: MIRTHA ERIC [place] : 1965 Age/S: 52 / M [address] Unit #: [id number] Loc: [place] [address] Phys: Mary Mauricio MD Acct: [id number] Dis Date: Status: ADM IN PHONE #: [phone] Exam Date: 07/05/2018 1310 FAX #: Reason: carotid bruit EXAMS: CPT: [id number] DUP EXTRACRANIAL DOLORES 87937 (Continued) Orig Print D/T: S: 07/05/2018 (3861) Probe: PAGE 2 Signed Report COMPREHENSIVE METABOLIC [...] code = ALKP) 83 Unit/L 50-136 N [id number] 07:02:00 Test Item Value Reference Range Interpretation Comments PHOSPHOROUS (test code = PHOS) 3.2 MG/DL 2.5-4.9 N [id number] 07:02:00 Test Item Value Reference Range Interpretation Comments MAGNESIUM (test code = MAG) 2.1 MG/DL 1.8-2.4 N CBC W/AUTO [id number] 06:42:00 Test Item Value Reference Range Interpretation [...] code = NO DIFF/SCN CRITERIA MDIFF) PROTHROMBIN [id number] 06:29:00 Test Item Value Reference Range Interpretation Comments PT PATIENT (test code = PTP) 10.7 SECONDS 9.3-12.9 N INTERNATIONAL NORMAL RATIO 0.93 INR Unit 0.8-1.2 N (test code = INR) - MRA HEAD W/O [id number] 12:10:00 FAX: Marcelino Ugalde MD [phone] Camps: PM St: ADM Name: MIRTHA ERIC [facility] Rob : 1965 Age/S: 52/M [address] [place] [address] Unit #: [id number] Loc: [address] [place] [address] Phys: Marcelino Ugalde MD Acct: [id number] Dis Date: Status: ADM IN PHONE #: [phone] Exam Date: 07/04/2018 1016 FAX #: Reason: to r/o aneurysm EXAMS: CPT: [id number] MRA HEAD W/O CONT 80361 MRA HEAD WITHOUT CONTRAST HISTORY: Aneurysm COMPARISON: None TECHNIQUE: 3-D trpf-rh-ydremd and MIP images were obtained through the tonto apache of [place]. Location: R16. FINDINGS: Limited exam due to patient motion. 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 The posterior communicating artery is not visualized, likely hypoplastic related to variant anatomy. Otherwise the tonto [place] of [place] is intact. No other large vessel occlusion. No definite aneurysm. 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 No definite aneurysm. at 1210 Reported and signed by: Rashawn Garcia M.D. CC: Marcelino Garcia Technologist: Jt Musa, RT(R)(MR); ... Transcribed Date/Time/By: 07/04/2018 (1240) :[email or web address] Orig Print D/T: S: 07/04/2018 (5957) PAGE 1 Signed Report- MRI BRAIN W/O [id number] 11:21:00 FAX: Marcelino Ugalde MD [phone] Camps: PM St: ADM Name: MIRTHA ERICland : 1965 Age/S: 52/M [address] [place] [address] Unit #: [id number] Loc: [address] [place] [address] Phys: Marcelino Ugalde MD Acct: [id number] Dis Date: Status: ADM IN PHONE #: [phone] Exam Date: 07/04/2018 1045 FAX #: Reason: to r/o aneurysm EXAMS: CPT: [id number] MRI BRAIN W/O CONTRAST 18707 MRI BRAIN WITHOUT CONTRAST HISTORY: Headache and [...] The paranasal sinuses and mastoid air cells areclear. The globes are unremarkable. IMPRESSION: No evidence of acute ischemia. Unremarkable unenhanced MRI brain. at 1121 Reported and signed by: Rashawn Garcia M.D. CC: Marcelino Ugalde MD Technologist: Jt Musa RT(R)(MR) Transcribed Date/Time/By: 07/04/2018 (1121) :[email or web address] Orig Print D/T: S: 07/04/2018 (1124) PAGE 1 Signed ReportCOMPREHENSIVE METABOLIC [id number] 06:39:00 Test Item Value Reference Range Interpretation [...] TOTAL (test code = ALKP) CBC W/AUTO [id number] 06:38:00 Test Item Value Reference Range Interpretation [...] NO DIFF/SCN CRITERIA MDIFF) - CT CHEST [id number] 22:55:00 Name: MIRTHA ERIC [facility] : 1965 Age/S: 52 / M [address] Unit #: [id number] Loc: [place] [address] Phys: Jason Botello MD Acct: [id number] Dis Date: Status: ADM IN PHONE #:[phone] Exam Date: 07/03/2018 2210 FAX #: Reason: CP, palpitations, +d- dimer. R/O PE EXAMS: CPT: [id number] CT CHEST W/CONTRAST 49652 Examination: CTA chest, PE protocol Indication: Chest [...] exposure control, adjustment of the mA and/or kVaccording to patient size, and/or utilization of iterative reconstruction technique. Findings: Ade[place] te contrast bolus. No evidence of acute pulmonary [...] PAGE 1 Signed Report (CONTINUED) Name: MIRTHA ERICland : 1965 Age/S: 52 / M [address] [facility] Unit #: [id number] Loc: [place] [address] Phys: Jason Botello MD Acct: [id number] Dis Date: Status: ADM IN PHONE #: [phone] Exam Date: 07/03/2018 2210 FAX #: Reason: CP, palpitations, +d-dimer. R/O PE EXAMS: CPT: [id number] CT CHEST W/CONTRAST 80519 (Continued) segmental pulmonary arteries on the left, evaluation of the right is limited secondary to streak artifact from contrast within the IVC, no evidence of acute pulmonary embolism is seen on the left to the level of the proximal lobar pulmonary arteries. Diffuse esophageal thickening is noted throughout at 2045 Reported and signed by: Carol Bar M.D. CC: Marcelino Ugalde MD; Jason Botello MD Technologist:Salty Sahu, RT(R)(CT); .. CTDI: DLP: Trnscb Date/Time: 07/03/2018 (2254) [email or web address] Orig Print D/T: S: 07/03/2018 (8701) CTDI: DLP: PAGE 2 Signed ReportRULE OUT IA [id number] 14:27:00 Test Item Value Reference Range Interpretation [...] franco yby method. - XR CHEST 1 [id number] 12:14:00 Name: MIRTHA ERIC [place] : 1965 Age/S: 52 / M [address] Unit #: [id number] Loc: [place] [address] Phys: Marcelino Ugalde MD Acct: [id number] Dis Date: Status: ADM IN PHONE #: [phone] Exam Date: 07/03/2018 1120 FAX #: Reason: SOB EXAMS: CPT: [id number] XR CHEST 1 V 30220 Fluoro Time: DAP (Gy m2): Air Kerma (mGy): Site ID: [id number] HISTORY: Chest pain FINDINGS: The lungs are clear and normally expanded. The heart and pulmonary vasculature is normal. Osseous structures are unremarkable. IMPRESSION: Negative chest X-ray. at 1214 Reported and signed by: Niki Chin M.D. CC: Marcelino Ugalde MD PAGE 1 Signed Report Name: MIRTHA ERIC [place] : 1965 Age/S: 52 / M [address] Unit #: [id number]: [place] [address] Phys: Marcelino Ugalde MD Acct: [id number] Dis Date: Status: ADM IN PHONE #: [phone] Exam Date: 07/03/2018 1120 FAX #: Reason: SOB EXAMS: CPT: [id number] XR CHEST 1 V 46500 Fluoro Time: DAP (Gy m2): Air Kerma (mGy): (Continued) Technologist: Jen Tate, RT(R) Trnscb Date/Time: 07/03/2018 (9409) [id number] Orig Print D/T: S: 07/03/2018 (9826) PAGE 2 Signed ReportRULE OUT IA [id number] 06:03:00 Test Item Value Reference Range Interpretation [...] results may franco yby method. CBC W/AUTO [id number] 03:40:00 Test Item Value Reference Range Interpretation [...] (test code = NO DIFF/SCN CRITERIA MDIFF) [id number] 03:29:00 Test Item Value Reference Range Interpretation Comments D-DIMER (test code = DDIMER) 518 ng/mLFEU 215-500 HH COMPREHENSIVE METABOLIC [id number] 03:21:00 Test Item Value Reference Range Interpretation [...] = LDL/HDL) 4.05 Ratio 1.48-3.22 Avg H [id number] 03:05:00 Test Item Value Reference Range Interpretation Comments PHOSPHOROUS (test code = PHOS) 3.1 MG/DL 2.5-4.9 N RULE OUT IA [id number] 03:05:00 Test Item Value Reference Range Interpretation [...] nume rical results may franco yby method. [id number] 03:05:00 Test Item Value Reference Range Interpretation Comments MAGNESIUM (test code = MAG) 2.0 MG/DL 1.8-2.4 N Notes Date/Time Note Provider Source 2018-07-05 12:45:00-00:00 [facility] ([facility]) Hospitalist Progress Note REPORT#:[id number] REPORT STATUS: Signed DATE:07/05/18 TIME:1245 PATIENT: MIRTHA ERIC UNIT #: [id number] ROOM/BED: [place] [address] : [birth year] AGE: 52 SEX: M ATTEND: Devonte Ugalde MD ADM AUTHOR: Marcelino Ugalde MD * ALL edits or amendments must be made on the [employer] document * Subjective Chief Complaint: Chest pain is better Still having dizziness Objective General VS/I O: Vital Signs: Date Time Temp Pulse Resp B/P B/P Pulse O2 O2 F low FiO2 Mean Ox Delivery Rate 07/05 1114 98.4 69 12 115/66 82.4 94 Room air 07/05 0730 Nasal 2.563532 cannula 07/05 0713 97.9 72 12 128/82 97.0 95 Room air 07/05 0429 68 18 116/69 84.4 95 Room air 07/04 2315 98.1 74 18 120/73 88.4 94 Room air 07/04 1929 98.2 76 18 132/78 95.9 95 [...] will get a neurology consult at 1820 [facility] #: [id number] END OF REPORT 2018-07-05 09:11:00-00:00 [id number] [facility] [address] [place] [address] PATIENT NAME: MIRTHA ERIC ADMIT DATE: 07/03/18 ACCOUNT NO: [id number] ROOM NO: [facility] AGE: 52 REPORT TYPE: CONSULTATION SEX: M [...] ar spine issues who was brought into [place] ED after having sudden onset of palpitation and aty pical chest pain. He has been transferred to [facility] for [facility] level of care. His cardiac workup was [...] variation noted, which were discussed with the p kait. Neurological consultation has been obtained for further [...] is intact. Cranial PATIENT NAME: MIRTHA ERIC nerve examination; pupils were equal, round, and [...] recommended. Dictated By: Mary Mauricio MD WT: CON:LCarolHIM/KHAMU.04/NTS Conf#: [id number]/DID#: [id number] Authenticated by Mary Mauricio MD On 07/23/19 09:51:41 AM at 0951 PATIENT NAME: MIRTHA ERIC 9 2018-07-04 19:57:00-00:00 [facility] ([facility]) Hospitalist Progress Note REPORT#:[id number] REPORT STATUS: Signed DATE:07/04/18 TIME:1956 PATIENT: MIRTHA ERIC UNIT #: [id number] ROOM/BED: [place] [address] : [birth year] AGE: 52 SEX: M ATTEND: Devonte Ugalde MD ADM AUTHOR: Marcelino Ugalde MD * ALL edits or amendments must be made on the el [employer]/computer document * Subjective Chief Complaint: Chest pain is better Still continues to have dizziness and shortness of breath Objective General VS/I O: Vital Signs: Date Time Temp Pulse Resp B/P B/P Pulse O2 O2 F low FiO2 Mean Ox Delivery Rate 07/04 192 98.2 76 18 132/78 95.9 95 Room air 07/04 1538 98.4 77 20 119/74 88.8 95 07/04 1132 98.8 66 20 118/81 92.9 95 07/04 0823 98.1 73 20 120/76 90.2 96 07/04 0406 98.8 81 19 113/66 81.8 94 07/03 2128 97.5 69 17 120/74 89.8 94 General [...] lymph adenopathy Results Findings/Data: Laboratory Tests 07/04 0539 Chemistry Sodium (134 - 147 mmol/L) 145 [...] % (Auto) (20.5 - 51.1 %) 34.4 Hardin % (Auto) (1.7 - 9.3 %) 8.6 Eos % (Auto) (0.0 - 6.0 %) 1.4 Baso % (Auto) (0.0 - 2.0 %) 0.4 Neut # (Auto) (1.8 - 7.6 K/mm3) 3.83 Lymph # (Auto) (0.6 - 3.0 K/mm3) 2.4 Hardin # (Auto) (0.2 - 1.5 K/mm3) 0.6 [...] SIGNED Entered: 07/04/2018 1213 IMPRESSION: 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 [place] of [place] anatomy with hyp oplasia of [...] get an MRA at 1818 RPT #: [id number] END OF REPORT 2018-07-04 12:26:00-00:00 [facility] ([facility]) Discharge Summary REPORT#:[id number] REPORT STATUS: Signed DATE:07/04/18 TIME:1226 PATIENT: MIRTHA ERIC UNIT #: [id number] ROOM/BED: [place] [address] : [birth year] AGE: 52 SEX: M ATTEND: Devonte Ugalde MD ADM AUTHOR: Marcelino Ugalde MD * ALL edits or amendments must be made on the el [employer]/computer document * PCP PCP Discharge to: home [...] Documented: Result Date Time Pulse Ox 96 07/05 1548 FiO2 21 07/05 1548 O2 Delivery Room air 07/05 1548 B/P 123/74 07/05 1528 B/P Mean 90.4 07/05 1528 Temp 98.2 07/05 1528 Pulse 70 07/05 1528 Resp 12 07/05 1528 O2 Flow Rate 2.116145 07/05 0730 General appearance: alert, awake, oriented HEENT : normocephalic ,Atraumatic Eyes: Eyes normal inspection. ENT: Dry mucous membranes present. Neck: Normal inspection. Neck supple. CVS: Normal heart rate and rhythm. Heart sounds normal. Respiratory: No respiratory distress. Breath mona nds normal. Abdomen: Soft and nontender. Back: Normal inspection. at 1823 RPT #: [id number] END OF REPORT 2018-07-04 08:57:00-00:00 [id number] [place] [address] PATIENT NAME: MIRTHA ERIC ADMIT DATE: 07/03/18 ACCOUNT NO: [id number] ROOM NO: [facility] AGE: 52 REPORT TYPE: CONSULTATION SEX: M ADMITTING PHYSICIAN: Marcelino Ugalde MD ATTENDING PHYSICIAN: Marcelino Ugalde MD CONSULTATION DATE: CONSULTING PHYSICIAN: Neo Quinn MD GASTROENTEROLOGY CONSULTATION INDICATION OF GASTROINTESTINAL CONSULT: Abdomina l pain. HISTORY OF PRESENT ILLNESS: A 52-year-old male w ho reports chest pain. He was evaluated at [place] ER with similar complaints. He complains of shortness [...] 237, HDL 34. PATIENT NAME: MIRTHA ERIC IMAGING STUDIES: Chest CT scan, no evidence [...] By: Neo Quinn MD WT: CON:ALEXI/BARBARA/TANNER Conf#: [id number]/DID#: [id number] Authenticated and Edited by Neo Quinn MD On 8:06:41 AM Electronically Signed by Neo Quinn MD on 0 07/09/18 at 0810 PATIENT NAME: MIRTHA ERIC 2018-07-03 15:55:00-00:00 [id number] [facility] [address] [place] [address] PATIENT NAME: MIRTHA ERIC ADMIT DATE: 07/03/18 ACCOUNT NO: [id number] ROOM NO: [facility] AGE: 52 REPORT TYPE: eECHOCARDIOGRAM REPORT SEX: [...] pressure. Dictated By: Jason Botello MD WT: ECHO:LMOUNA/NEERU/TANNER Conf#: [id number]/DID#: [id number] PATIENT NAME: MIRTHA ERIC Electronically Signed by Jason Botello MD on 0 07/28/18 at 2120 PATIENT NAME: MIRTHA ERIC 2018-07-03 14:42:00-00:00 [facility] ([facility]) Cardiology Consultation REPORT#:[id number] REPORT STATUS: Signed DATE:07/03/18 TIME:1442 PATIENT: MIRTHA ERIC UNIT #: [id number] ROOM/BED: [place] [address] : [birth year] AGE: 52 SEX: M ATTEND: Devonte Ugalde MD ADM AUTHOR: Jason Botello MD * ALL edits or amendments must be made on the [employer]/computer document * History of Present Illness HPI Reason for consult: Chest pain, palpitations, abnormal EKG HPI: Mr. Eric is a 52-year-old gentleman with history of COPD, prior tobacco abuse, and hyperlipidemia who prese nted initially to an outside ED in [place] for sudden onset palpitations. He described mild ass ociated chest pain but no shortness of breath. Symptoms lasted for a few h ours before finally resolving on its own. Workup at the [facility] ED was unremarkable including chest x-ray and CT head. Initial cardiac enzyme sets were negati ve. Since transfer to the [facility], ACS was ruled out with negative troponins x3. EKG however sh owed normal sinus rhythm with old inferior infarct. No active ischemic ST-T wave changes. T elemetry is also revealed normal sinus rhythm only. Mr. Eric at this point time feels back to his baseline. He has no history of CAD, prior IA, or CHF. Of note d-dimer is elevated [...] 07/03 0215 AC (morphine SULFATE) IV 07/13 0214 Gastrointestinal Drugs Sig/Janet Start time Last Medication Dose Route Stop Time Status Admin Famotidine 20 MG BID AC 07/03 0730 AC 07/03 (PEPCID) PO 08/02 0729 0813 Ondansetron HCl 4 MG Q4H PRN PRN 07/03 0215 AC (ZOFRAN) IV 08/02 0214 Allergies: Coded Allergies: No Known Allergies (07/03/18) [...] 97.7 96 Room air 07/03 0800 Nasal 2.161380 cannula 07/03 0653 97.9 72 16 123/75 91.0 94 Room air 07/03 0300 Nasal 2.236125 cannula 07/03 0153 98.1 80 20 126/81 [...] UE assessment: no clubbing, no cyanosis, no ed opal Lower extremity: LE assessment: no clubbing, no cyanosis, no senia ma, 2+ pedal pulse Musculoskeletal: normal inspection Neuro/LINE LEAD: alert, oriented X 3, normal speech Skin: [...] H Cholesterol/HDL Ratio (0 RATIO) 6.97 07/03 0228 Chemistry Sodium (134 - 147 mmol/L) 140 [...] % (Auto) (20.5 - 51.1 %) 29.3 Hardin % (Auto) (1.7 - 9.3 %) 5.4 Eos % (Auto) (0.0 - 6.0 %) 1.2 Baso % (Auto) (0.0 - 2.0 %) 0.3 Neut # (Auto) (1.8 - 7.6 K/mm3) 6.01 Lymph # (Auto) (0.6 - 3.0 K/mm3) 2.8 Hardin # (Auto) (0.2 - 1.5 K/mm3) 0.5 [...] Botello MD on at 1454 RPT #: [id number] END OF REPORT 2018-07-03 10:11:00-00:00 [facility] ([facility]) History Physical - Adult REPORT#:[id number] REPORT STATUS: Signed DATE:07/03/18 TIME:1011 PATIENT: MIRTHA ERIC UNIT #: [id number] ROOM/BED: [place] [address] : [birth year] AGE: 52 SEX: M ATTEND: Devonte Ugalde MD ADM AUTHOR: Marcelino Ugalde MD * ALL edits or amendments must be made on the [employer]/computer document * History of Present Illness HPI Chief complaint: Chest pain Dizziness Exertional dyspnea HPI: 52-year-old male with history of COPD, p rior tobacco abuse, and hyperlipidemia who presented initially to an outside ED in [place] for sudden onset palpitations. He described mild [...] 97.7 96 Room air 07/03 0800 Nasal 2.050195 cannula 07/03 0653 97.9 72 16 123/75 91.0 94 Room air 07/03 0300 Nasal 2.792188 cannula 07/03 0153 98.1 80 20 126/81 [...] H Cholesterol/HDL Ratio (0 RATIO) 6.97 07/03 0228 Chemistry Sodium (134 - 147 mmol/L) 140 [...] % (Auto) (20.5 - 51.1 %) 29.3 Hardin % (Auto) (1.7 - 9.3 %) 5.4 Eos % (Auto) (0.0 - 6.0 %) 1.2 Baso % (Auto) (0.0 - 2.0 %) 0.3 Neut # (Auto) (1.8 - 7.6 K/mm3) 6.01 Lymph # (Auto) (0.6 - 3.0 K/mm3) 2.8 Hardin # (Auto) (0.2 - 1.5 K/mm3) 0.5 Eos # (Auto) (0.0 - 0.4 K/mm3) 0.1 Baso # (Auto) (0.0 - 0.2 K/mm3) 0.0 Add Manual Diff (CRITERIA DIFF/SCN) NO Radiology data: Recent Impressions: RADIOLOGY - XR CHEST 1 V 07/03 1116 Report Impression - Status: SIGNED Entered: 07/03/2018 1217 IMPRESSION: Negative chest X-ray. Impression By: [email or web address] Howard Chin M.D. Diagnosis, Assessment Plan Free Text A P: Chest pain to rule out ACS Palpitations Dizziness Exertional dyspnea COPD? History of tobacco abuse Hyperlipidemia Hypertriglyceridemia Plan Trend cardiac enzymes serial EKGs Monitor under telemetry Cardiology consult Advised smoking cessation Bronchodilators as needed GI/DVT prophylaxis advanced directive full code at 1815 RPT #: [id number] END OF REPORT
[2023-01-09 13:10] LABS: Absolute Lymphocytes (CBC) 2.6 K/uL (0.7-4.9); Hematocrit 45.5 % (39.6-49.0); Lymphocytes % 22.8 % (15.3-44.8); MCV 90.2 fL (80-100); MPV 10.6 fL (7.6-11.3); Platelets 200 thou/uL (152-406); RBC Red Blood Cell Count 5.04 M/uL (4.33-5.43)
[2023-01-09] MEDS ORDERED: PANTOPRAZOLE 40 MG INJ ONE (13:11)
[2023-01-09 13:14] LABS: Protime INR 1.05
[2023-01-09 13:30] LABS: ALT/SGPT 82 U/L (16-61); AST/SGOT 21 U/L (15-37); Albumin 3.6 g/dL (3.4-5.0); Alkaline Phosphatase 92 U/L (45-117); BUN Blood Urea Nitrogen 17 mg/dL (7-18); Bicarbonate 26 mEq/L (21-32); Bilirubin Total 0.3 mg/dL (0.2-1.0); Glomerular Filtration Rate 73 ml/min (=/>90); Glucose Level 173 mg/dL (74-106); Magnesium 2.3 mg/dL (1.6-2.4); NT PRO-BNP 12 pg/mL (<125); Potassium 3.6 mEq/L (3.5-5.1); Protein, Total 7.2 g/dL (6.4-8.2); Sodium Level 141 mEq/L (136-145)
[2023-01-09 13:33] LABS: Bilirubin Direct < 0.1 mg/dL (0-0.2); Bilirubin Indirect, Calculated ND mg/dL (0.2-0.8); Troponin High Sensitivity < 3.0 pg/mL (<58.9)
--- NOTE | 2023-01-09 13:59 | RAD REPORT ---
EXAM DESCRIPTION: CT - Head Brain Wo Cont - 01/09/2023 1:43 pm CLINICAL HISTORY: HEADACHE COMPARISON: Head angio dated 01/09/2023; Angio Aorta For Dissection dated 01/04/2023 TECHNIQUE: Noncontrast head CT images were obtained without IV contrast. Multiplanar reformats were generated and reviewed. All CT scans are performed using dose optimization technique as appropriate and may include automated exposure control or mA/KV adjustment according to patient size. FINDINGS: No intracranial hemorrhage, mass, or edema. Midline structures are unremarkable. Normal ventricular caliber for age. Rosado-white matter differentiation is preserved, without evidence of acute infarct. No abnormal extra- axial fluid collections. Mastoid air cells and visualized portions of the paranasal sinuses are clear. No acute bony findings. IMPRESSION: No evidence of an acute intracranial process.
--- NOTE | 2023-01-09 14:38 | RAD REPORT ---
EXAM DESCRIPTION: CT - Head angio - 01/09/2023 1:43 pm CLINICAL HISTORY: fm hx aneurysm;Pain COMPARISON: Head Brain Wo Cont dated 01/09/2023 TECHNIQUE: Axial CT angiography images of the head was performed with multiplanar and maximum intens ity projection reconstructions. Images performed following intravenous administration of 100mL Isovue 370. All CT scans are performed using dose optimization technique as appropriate and may include automated exposure control or mA/KV adjustment according to patient size. FINDINGS: No evidence of large vessel occlusion. No evidence of aneurysm or dissection flap is detec archie. No flow-limiting stenosis or vascular malformation identified. Antegrade flow is seen in the vertebral arteries. The vertebral arteries are codominant. The visualized dural venous sinuses are grossly patent. IMPRESSION: No evidence of large vessel occlusion or flow-limiting stenosis. No evidence of aneurys mal dilation or dissection.
--- NOTE | 2023-01-09 14:42 | RAD REPORT ---
EXAM DESCRIPTION: RADChest Single View01/09/2023 2:13 pm CLINICAL HISTORY: CHEST PAIN COMPARISON: Chest Single View dated 01/04/2023; Chest Single View dated 12/30/2021; Chest Single View d ated 12/08/2019; Chest Pa And Lat (2 Views) dated 05/25/2016 TECHNIQUE: Portable AP view of the chest. FINDINGS: The lungs are clear. No pneumothorax or effusion. The cardiomediastinal contours are unrem arkable. IMPRESSION: No acute cardiopulmonary process.
[2023-01-09] MEDS ORDERED: ASPIRIN 81 MG CHEWABLE TABLET ONE (15:45)
--- NOTE | 2023-01-09 16:38 | ER ---
Nurse's Notes [facility] Name: Amandeep Emerson Age: 57 yrs Sex: Male : 1965 Arrival Date: 01/09/2023 Time: 12:44 Bed 20 Private MD: Diagnosis: Chest pain, unspecified;COPD/ Chronic obstructive pulmonary disease, unspecified;Adverse effect of other drugs, medicaments and biological substances Presentation: 01/09 12:54 Chief complaint: Patient states: he had a recent hospital stay where he was discharged ap3 Sunday for chest pain. patient states he has continued chest pain, but now is having intermittent confusion and is diaphoretic. patients reports the patient is not himself. Coronavirus screen: At this time, the client does not indicate any symptoms associated with coronavirus-19. Ebola Screen: No symptoms or risks identified at this time. Initial Sepsis Screen: Does the patient meet any 2 criteria? No. Patient's initial sepsis screen is negative. Does the patient have a suspected source of infection? No. Patient's initial sepsis screen is negative. Risk Assessment: Do you want to hurt yourself or someone else? Patient reports no desire to harm self or others. Onset of symptoms was January 06, 2023. 12:54 Method Of Arrival: Ambulatory ap3 12:54 Acuity: OJCELYN 2 ap3 Triage Assessment: 12:57 General: Appears distressed, Behavior is calm, cooperative. Pain: Complains of pain in ap3 chest Pain currently is 6 out of 10 on a pain scale. Pain began gradually. Neuro: Level of Consciousness is awake, alert, obeys commands, Oriented to person, place, time, situation. Cardiovascular: Reports chest pain. Respiratory: Airway is patent Respiratory effort is even, unlabored, Respiratory pattern is regular, symmetrical. Derm: Skin is diaphoretic. Historical: - Allergies: 12:56 No Known Allergies; ap3 - Home Meds: 12:56 metoprolol tartrate 100 mg Oral tab 1 tab 2 times per day [Active]; prednisone 10 mg ap3 Oral tablet 2 times per day [Active]; - PMHx: 12:56 COPD; Headaches; High Cholesterol; Hypertension; ap3 - PSHx: 12:56 hand; ap3 - Immunization history:: Client reports having NOT received the Covid vaccine. - Social history:: Smoking status: Patient denies any tobacco usage or history of. Screenin:58 Abuse screen: Denies threats or abuse. Nutritional screening: No deficits noted. ap3 Tuberculosis screening: No symptoms or risk factors identified. Assessment: 13:00 General: Appears uncomfortable, Behavior is calm, cooperative, Reports "not feeling aa5 right". Pain: Denies pain. Neuro: Level of Consciousness is awake, alert, obeys commands, Oriented to person, place, time, situation, Grave Cleaner are equal bilaterally Moves all extremities. Speech is normal, Facial symmetry appears normal. Cardiovascular: Denies chest pain, Reports chest pain has been intermittent since discharge home. Heart tones S1 S2 present Rhythm is regular. Respiratory: Airway is patent Respiratory effort is even, unlabored, Respiratory pattern is regular, symmetrical, Breath sounds are clear bilaterally. Denies cough, shortness of breath. GI: Abdomen is round non-distended, Bowel sounds present X 4 quads. Abd is soft and non tender X 4 quads. Patient currently denies diarrhea, nausea, vomiting. : No signs and/or symptoms were reported regarding the genitourinary system. EENT: No signs and/or symptoms were reported regarding the EENT system. Derm: Skin is dry, Skin is red, Skin temperature is warm. Musculoskeletal: Range of motion: intact in all extremities. 14:15 Reassessment: Patient is alert, oriented x 3, equal unlabored respirations, skin aa5 warm/dry/pink. Awaiting CT scan results. . 15:10 Reassessment: Patient is alert, oriented x 3, equal unlabored respirations, skin aa5 warm/dry/pink. Awaiting repeat EKG and repeat troponin at 1600, pt notified of wait time.. 16:00 Reassessment: Patient is alert, oriented x 3, equal unlabored respirations, skin aa5 warm/dry/pink. 16:00 Reassessment: Omer Musa RN at bedside collecting repeat EKG and repeat troponin. . aa5 17:08 Reassessment: Patient is alert, oriented x 3, equal unlabored respirations, skin aa5 warm/dry/pink. Vital Signs: 12:43 BP 147 / 102; Pulse 80; Resp 17; Pulse Ox 99% on R/A; rs5 12:54 BP 147 / 102; Pulse 76; Resp 19; Temp 98.3(O); Pulse Ox 96% ; Weight 116.12 kg; Pain ap3 6/10; 13:15 BP 120 / 94; Pulse 83; Resp 18; Pulse Ox 99% on R/A; rs5 14:11 BP 112 / 82; Pulse 81; Resp 17; Temp 97.9; Pulse Ox 98% on R/A; rs5 15:59 BP 113 / 83; Pulse 69; Resp 18 S; Pulse Ox 98% on R/A; aa5 17:00 BP 115 / 80; Pulse 70; Resp 16 S; Pulse Ox 99% on R/A; aa5 12:54 Pain Scale: Adult ap3 ED Course: 12:50 EKG done, by ED staff, reviewed by Yaneth POWELL. Inserted saline lock: 20 gauge mb9 in right forearm, using aseptic technique. 12:53 Patient arrived in ED. snw 12:54 John Bhatia MD is Attending Physician. snw 12:54 [facility]C [facility] snw 12:54 Hien Hicks, RANDY is Primary Nurse. ap3 12:56 Triage completed. ap3 12:57 Arm band placed on. mb9 12:58 Patient maintains SpO2 saturation greater than 95% on room air. ap3 12:58 Placed in gown. Bed in low position. Call light in reach. Side rails up X 1. Client mb9 placed on continuous cardiac and pulse oximetry monitoring. NIBP monitoring applied. surveillance system monitor on. 13:45 CT Head Brain wo Cont In Process Unspecified. EDMS 13:45 CT Head Angio In Process Unspecified. EDMS 14:14 XRAY Chest (1 view) In Process Unspecified. EDMS 17:08 No provider procedures requiring assistance completed. IV discontinued, intact, aa5 bleeding controlled, No redness/swelling at site. Pressure dressing applied. Administered Medications: 13:07 Drug: Pantoprazole IVP 40 mg Route: IVP; Site: right forearm; aa5 13:56 Follow up: Response: No adverse reaction aa5 15:39 Drug: Aspirin PO Chewable Tablet 324 mg Route: PO; aa5 15:59 Follow up: Response: No adverse reaction aa5 Medication: 17:08 VIS not applicable for this client. aa5 Outcome: 16:38 Discharge ordered by . snw 17:10 Discharged to home ambulatory, with family. aa5 17:10 Condition: stable 17:10 Discharge instructions given to patient, Instructed on discharge instructions, follow up and referral plans. medication usage, Demonstrated understanding of instructions, follow-up care, medications, Prescriptions given X 1. 17:12 Patient left the ED. aa5 Signatures: Dispatcher [employer] EDMS Yaneth Yan, LONG CHAIN DYEING MACHINE OPERATOR-C LONG CHAIN DYEING MACHINE OPERATOR-Csnw Bharti Arvizu, RN RN aa5 Hien Hicks RN RN ap3 Thalia Paz RN RN mb9 Harjinder Hester RN RN rs5
--- NOTE | 2023-01-09 16:38 | EDPHYS ---
Physician Documentation [facility] Name: Amandeep Emerson Age: 57 yrs Sex: Male : 1965 Arrival Date: 01/09/2023 Time: 12:44 Bed 20 Private MD: ED Physician John Bhatia HPI: 01/09 13:02 This 57 yrs old Male presents to ER via Ambulatory with complaints of Chest Pain > 30 snw y/o. 13:02 The patient or guardian reports chest pain that is located primarily in the anterior snw chest wall, left. The pain does not radiate. Associated signs and symptoms: Pertinent positives: diaphoresis, nausea, anxiety. The chest pain is described as a pressure. recently discharged post admission for angina. Pt on Metoprolol 100mg BID and Prednsisone 10mg BID. Historical: - Allergies: 12:56 No Known Allergies; ap3 - Home Meds: 12:56 metoprolol tartrate 100 mg Oral tab 1 tab 2 times per day [Active]; prednisone 10 mg ap3 Oral tablet 2 times per day [Active]; - PMHx: 12:56 COPD; Headaches; High Cholesterol; Hypertension; ap3 - PSHx: 12:56 hand; ap3 - Immunization history:: Client reports having NOT received the Covid vaccine. - Social history:: Smoking status: Patient denies any tobacco usage or history of. ROS: 13:01 Eyes: Negative for injury, pain, redness, and discharge, ENT: Negative for injury, snw pain, and discharge, Neck: Negative for injury, pain, and swelling. 13:01 Abdomen/GI: Negative for abdominal pain, nausea, vomiting, diarrhea, and constipation, Back: Negative for injury and pain, : Negative for injury, bleeding, discharge, and swelling, MS/Extremity: Negative for injury and deformity, Skin: Negative for injury, rash, and discoloration. 13:01 Constitutional: Positive for chest pain. 13:01 Cardiovascular: Positive for chest pain. 13:01 Respiratory: Positive for shortness of breath. 13:01 Neuro: Positive for altered mental status, per Mrs. Emerson. 13:01 Psych: Positive for anxiety. Exam: 13:00 Head/Face: Normocephalic, atraumatic. Eyes: Pupils equal round and reactive to light, snw extra-ocular motions intact. Lids and lashes normal. Conjunctiva and sclera are non-icteric and not injected. Cornea within normal limits. Periorbital areas with no swelling, redness, or edema. ENT: Nares patent. No nasal discharge, no septal abnormalities noted. Tympanic membranes are normal and external auditory canals are clear. Oropharynx with no redness, swelling, or masses, exudates, or evidence of obstruction, uvula midline. Mucous membranes moist. Neck: Trachea midline, no thyromegaly or masses palpated, and no cervical lymphadenopathy. Supple, full range of motion without nuchal rigidity, or vertebral point tenderness. No Meningismus. Chest/axilla: Normal chest wall appearance and motion. Nontender with no deformity. No lesions are appreciated. Cardiovascular: Regular rate and rhythm with a normal S1 and S2. No gallops, murmurs, or rubs. Normal PMI, no JVD. No pulse deficits. Respiratory: Lungs have equal breath sounds bilaterally, clear to auscultation and percussion. No rales, rhonchi or wheezes noted. No increased work of breathing, no retractions or nasal flaring. Abdomen/GI: Soft, non-tender, with normal bowel sounds. No distension or tympany. No guarding or rebound. No evidence of tenderness throughout. Back: No spinal tenderness. No costovertebral tenderness. Full range of motion. Skin: Warm, dry with normal turgor. Normal color with no rashes, no lesions, and no evidence of cellulitis. MS/ Extremity: Pulses equal, no cyanosis. Neurovascular intact. Full, normal range of motion. Neuro: Awake and alert, GCS 15, oriented to person, place, time, and situation. Cranial nerves II-XII grossly intact. Motor strength 5/5 in all extremities. Sensory grossly intact. Cerebellar exam normal. Normal gait. 13:00 Constitutional: The patient appears alert, awake, anxious, diaphoretic, obese. 13:00 Psych: Behavior/mood is cooperative, anxious, Affect is calm. Vital Signs: 12:43 BP 147 / 102; Pulse 80; Resp 17; Pulse Ox 99% on R/A; rs5 12:54 BP 147 / 102; Pulse 76; Resp 19; Temp 98.3(O); Pulse Ox 96% ; Weight 116.12 kg; Pain ap3 6/10; 13:15 BP 120 / 94; Pulse 83; Resp 18; Pulse Ox 99% on R/A; rs5 14:11 BP 112 / 82; Pulse 81; Resp 17; Temp 97.9; Pulse Ox 98% on R/A; rs5 15:59 BP 113 / 83; Pulse 69; Resp 18 S; Pulse Ox 98% on R/A; aa5 17:00 BP 115 / 80; Pulse 70; Resp 16 S; Pulse Ox 99% on R/A; aa5 12:54 Pain Scale: Adult ap3 MDM: 12:53 Patient medically screened. w 13:03 Differential diagnosis: abnormal EKG, acute myocardial infarction, coronary artery snw disease esophagitis, gastritis, stable angina, unstable angina. HEART Score: History: Slightly Suspicious (0), ECG: Non specific repolarization disturbance / LBTB / PM (1), Age: > 45 and < 65 years (1), Risk Factors: 1 or 2 risk factors (1). Data reviewed: vital signs, nurses notes, lab test result(s), EKG, radiologic studies. Special discussion: I have referred the patient to see his PCP for further evaluation of high blood pressure. Based on the history and exam findings, there is no indication for further emergent testing or inpatient evaluation. I discussed with the patient/guardian the need to see the buffing turner and counter for further evaluation of the symptoms. I discussed with the patient/guardian the need to see the primary care provider for further evaluation of the symptoms. I discussed with the patient/guardian the need to see the historical records administrator for further evaluation of the symptoms. 13:48 External Records Reviewed: Inpatient record: Echo normal, cath 3 years ago normal, Dr. abdirahman Roca saw and cleared pt for outpatient follow up 5 days ago. Troponin and EKG still without concerning findings. . ED course: Pt has been placed on prednisone for COPD exacerbation. I feel this is the cause of current s/s. 15:11 The patient was given aspirin in the Emergency Department. I considered the following [facility] discharge prescriptions or medication management in the emergency department Medications were administered in the Emergency Department. See MAR. Counseling: I had a detailed discussion with the patient and/or guardian regarding: the historical points, exam findings, and any diagnostic results supporting the discharge/admit diagnosis, the presence of at least one elevated blood pressure reading (>120/80) during this emergency department visit, lab results, radiology results. Response to treatment: the patient's symptoms have mildly improved after treatment. 01/09 12:56 Order name: Basic Metabolic Panel; Complete Time: 13:35 snw 01/09 12:56 Order name: CBC with Diff; Complete Time: 13:17 snw 01/09 12:56 Order name: LFT's; Complete Time: 13:35 snw 01/09 12:56 Order name: Magnesium; Complete Time: 13:35 snw 01/09 12:56 Order name: NT PRO-BNP; Complete Time: 13:35 snw 01/09 12:56 Order name: PT-INR; Complete Time: 13:17 snw 01/09 12:56 Order name: Troponin HS; Complete Time: 13:35 snw 01/09 14:57 Order name: Troponin HS: at 1600; Complete Time: 16:36 snw 01/09 12:56 Order name: XRAY Chest (1 view); Complete Time: 14:44 snw 01/09 12:56 Order name: CT Head Brain wo Cont; Complete Time: 14:04 snw 01/09 12:56 Order name: CT Head Angio; Complete Time: 14:39 snw 01/09 12:56 Order name: EKG; Complete Time: 12:57 w 01/09 14:57 Order name: EKG: at 1600; Complete Time: 14:58 w 01/09 12:56 Order name: Cardiac monitoring; Complete Time: 12:56 snw 01/09 12:56 Order name: EKG - Nurse/Tech; Complete Time: 12:56 snw 01/09 12:56 Order name: IV Saline Lock; Complete Time: 12:57 snw 01/09 12:56 Order name: Labs collected and sent; Complete Time: 12:57 snw 01/09 12:56 Order name: O2 Per Protocol; Complete Time: 12:56 w 01/09 12:56 Order name: O2 Sat Monitoring; Complete Time: 12:56 snw 01/09 14:57 Order name: EKG - Nurse/Tech; Complete Time: 16:10 snw EC:00 Rate is 82 beats/min. Rhythm is regular. QRS [place] is Normal. QRS interval is normal. QT snw interval is normal. Clinical impression: NSR w/ Non-specific ST/T Changes. 16:11 Rate is 68 beats/min. Rhythm is regular. QRS [place] is Normal. [place] interval is normal. QRS snw interval is normal. QT interval is normal. Clinical impression: NSR w/ Non-specific ST/T Changes. Administered Medications: 13:07 Drug: Pantoprazole IVP 40 mg Route: IVP; Site: right forearm; aa5 13:56 Follow up: Response: No adverse reaction aa5 15:39 Drug: Aspirin PO Chewable Tablet 324 mg Route: PO; aa5 15:59 Follow up: Response: No adverse reaction aa5 Disposition: 17:34 Co-signature as Attending Physician, John Bhatia MD I reviewed the patient's care rn provided by the Advanced Practice Provider and agree with the diagnosis and treatment plan. Disposition Summary: 01/09/23 16:38 Discharge Ordered Location: Home snw Condition: Stable snw Diagnosis - Chest pain, unspecified snw - COPD/ Chronic obstructive pulmonary disease, unspecified snw - Adverse effect of other drugs, medicaments and biological substances snw Followup: snw - With: Emergency Department - When: As needed - Reason: Worsening of condition Followup: snw - With: Private Physician - When: 2 - 3 days - Reason: Recheck today's complaints, Continuance of care, Re-evaluation by your physician Discharge Instructions: - Discharge Summary Sheet snw - Nonspecific Chest Pain, Adult snw - Gastritis, Adult snw - Gastroesophageal Reflux Disease, Adult snw - Fatigue snw - Aspirin and Your Heart snw - Form - COPD Action Plan snw - COPD and Physical Activity snw - Living With COPD snw Forms: - Medication Reconciliation Form snw - Thank You Letter snw - Antibiotic Education snw - Prescription Opioid Use snw - Patient Portal Instructions snw - Leadership Thank You Letter snw Prescriptions: - Carafate 1 gram Oral Tablet - take 1 tablet by ORAL route 4 times per day take on an empty stomach, beginning snw on waking and last dose at bedtime; 100 tablet; Refills: 0, Product Selection Permitted Signatures: Dispatcher [employer] Yaneth Olivier FNP-C VEGETABLE TRIMMER-Csnw John Bhatia MD MD rn Calderon, Audri RN RN aa5 Hien Hicks RN RN ap3
[2023-01-09 17:36] VITALS: TEMP 97.9; O2SAT 98
[2023-01-09 17:37] VITALS: BP 113/83
--- NOTE | 2023-01-10 18:28 | EKG ---
Test Date: 2023-01-09 Test Time: 16:06:17 Junior Business Analyst: LFORENCE MEASUREMENT RESULTS: Intervals: Rate: 68 SC: 150 QRSD: 94 QT: 396 QTc: 421 [place]: P: -7 SC: 150 QRS: 1 T: 73 INTERPRETIVE STATEMENTS: Normal sinus rhythm Normal ECG Compared to ECG 01/09/2023 12:49:30 Myocardial infarct finding no longer present Electronically Signed On 01-10-23 18:25:41 CDT by Justo Roca
--- NOTE | 2023-01-10 18:29 | EKG ---
Test Date: 2023-01-09 Test Time: 12:49:30 Plant Technician: MB MEASUREMENT RESULTS: Intervals: Rate: 82 CT: 166 QRSD: 94 QT: 384 QTc: 448 [place]: P: 64 CT: 166 QRS: -2 T: 61 INTERPRETIVE STATEMENTS: Normal sinus rhythm Possible Left atrial enlargement Possible Anterior infarct, age undetermined Abnormal ECG Compared to ECG 01/04/2023 03:01:20 Myocardial infarct finding now present Electronically Signed On 01-10-23 18:26:19 CDT by Justo Roca
== END 2023-01-09 17:12 | disposition home or self-care (01) ==
LOC: ER 12:44
DX: R07.89 Other chest pain (principal); J44.9 Chronic obstructive pulmonary disease, unspecified; T50.995A Adverse effect of other drugs, medicaments and biological substances, initial encounter; I10 Essential (primary) hypertension; E78.00 Pure hypercholesterolemia, unspecified
CPT/HCPCS: 93005 ×2; 85025; 80048; 36415; 83735; 85610; 80076; 84484 ×2; 83880; 70450; 70496; 71045; 96374; 99285; Q9967; C9113

== ENCOUNTER 2023-10-03 18:23 | Emergency (ER) | payer OTHER ==
[2023-10-03 19:29] LABS: Absolute Basophils 0.1 K/uL (0-0.5); Absolute Eosinophils 0.1 K/uL (0-0.5); Absolute Lymphocytes (CBC) 2.3 K/uL (0.7-4.9); Absolute Monocytes 0.6 K/uL (0.1-1.3); Absolute Neutrophil 5.7 K/uL (1.8-8.0); Basophils % 1.1 % (0-1.3); Eosinophils % 1.3 % (0-4.4); Hematocrit 40.9 % (39.6-49.0); Hemoglobin 13.6 g/dL (13.6-17.9); Lymphocytes % 26.1 % (15.3-44.8); MCHC 33.2 g/dL (32.0-36.0); MCV 90.2 fL (80-100); MPV 10.5 fL (7.6-11.3); Monocytes % 6.8 % (3.3-12.3); Neutrophils % 64.7 % (41.7-73.7); Nucleated Red Blood Cells % 0.1 % (0-0); Platelets 191 thou/uL (152-406); RBC Red Blood Cell Count 4.54 M/uL (4.33-5.43); Red Cell Distribution Width 13.2 % (12.1-15.2)
--- NOTE | 2023-10-03 19:50 | RAD REPORT ---
EXAM DESCRIPTION: US - UPPER EXTREMITY VENOUS UNILATE - 10/03/2023 7:41 pm CLINICAL HISTORY: LUE swelling Arm swelling and edema COMPARISON: Extremity Venous Uni Ltd dated 02/10/2017 FINDINGS: Left upper extremity venous system was interrogated with Doppler technique. Normal flow, c ompressibility and augmentation was noted. There is no DVT present. IMPRESSION: No evidence of left upper extremity deep venous thrombosis.
[2023-10-03 19:56] LABS: ALT/SGPT 54 U/L (16-61); AST/SGOT 20 U/L (15-37); Albumin 3.6 g/dL (3.4-5.0); Alkaline Phosphatase 95 U/L (45-117); Anion Gap 9.8 mEq/L (5.0-15.0); BUN Blood Urea Nitrogen 8 mg/dL (7-18); Bicarbonate 25 mEq/L (21-32); Bilirubin Total 0.4 mg/dL (0.2-1.0); Globulin 3.5 g/dL (2.3-3.5); Glomerular Filtration Rate 102 ml/min (=/>90); Glucose Level 109 mg/dL (74-106); Magnesium 2.2 mg/dL (1.6-2.4); Potassium 3.8 mEq/L (3.5-5.1); Protein, Total 7.1 g/dL (6.4-8.2); Sodium Level 139 mEq/L (136-145); Troponin High Sensitivity 3.7 pg/mL (<58.9)
[2023-10-03 20:09] LABS: Bilirubin Direct < 0.2 mg/dL (0-0.2); Bilirubin Indirect, Calculated 0.2 mg/dL (0.2-0.8)
--- NOTE | 2023-10-03 20:38 | RAD REPORT ---
EXAM DESCRIPTION: CT - Head Brain Wo Cont - 10/03/2023 8:33 pm CLINICAL HISTORY: HEADACHE COMPARISON: Head Brain Wo Cont dated 01/09/2023; Head angio dated 01/09/2023 TECHNIQUE: All CT scans are performed using dose optimization technique as appropriate and may inclu de automated exposure control or mA/KV adjustment according to patient size. FINDINGS: No intracranial hemorrhage, hydrocephalus or extra-axial fluid collection.No areas of brai n edema or evidence of midline shift. The paranasal sinuses and mastoids are clear. The calvarium is intact. IMPRESSION: No acute intracranial abnormality.
--- NOTE | 2023-10-03 20:42 | RAD REPORT ---
EXAM DESCRIPTION: CT - Chest For Pe Angio - 10/03/2023 8:35 pm CLINICAL HISTORY: Chest pain. CHEST PAIN COMPARISON: No comparisons TECHNIQUE: CT angiogram of the pulmonary arteries was performed with MIP. All CT scans are performed using dose optimization technique as appropriate and may include automated exposure control or mA/KV adjustment according to patient size. FINDINGS: No evidence of pulmonary thromboembolism. No acute aortic finding demonstrated. The lungs are clear. No significant pericardial or pleural fluid. No concerning bony finding. Fatty liver. IMPRESSION: No evidence of pulmonary thromboembolism. No acute lung findings.
--- NOTE | 2023-10-03 21:49 | ER ---
Nurse's Notes [facility] – [place], [place] Name: Amandeep Emerson Age: 58 yrs Sex: Male : 1965 Arrival Date: 10/03/2023 Time: 18:23 Bed 16 Private MD: Russell Grayson Diagnosis: Pain in left arm;Left arm and neck pain , Sub acute neck pain Presentation: 10/02 18:42 Chief complaint: Patient states: left arm pain and it feels tingly , hx of DVT, pain iw started today , feels like his heart pounding about 20 minutes ago. Coronavirus screen: At this time, the client does not indicate any symptoms associated with coronavirus-19. Ebola Screen: Patient negative for fever greater than or equal to 101.5 degrees Fahrenheit, and additional compatible Ebola Virus Disease symptoms Patient denies exposure to infectious person. Patient denies travel to an Ebola-affected area in the 21 days before illness onset. No symptoms or risks identified at this time. Initial Sepsis Screen: Does the patient meet any 2 criteria? No. Patient's initial sepsis screen is negative. Does the patient have a suspected source of infection? No. Patient's initial sepsis screen is negative. Risk Assessment: Do you want to hurt yourself or someone else? Patient reports no desire to harm self or others. Onset of symptoms was October 03, 2023. 18:42 Method Of Arrival: Ambulatory iw 18:42 Acuity: JOCELYN 2 iw Triage Assessment: 20:54 Respiratory: Reports shortness of breath at rest Onset: The symptoms/episode rv began/occurred suddenly, the patient has mild shortness of breath. Historical: - Allergies: 18:44 No Known Allergies; iw - PMHx: 18:44 Headaches; COPD; High Cholesterol; Hypertension; DVT; iw - PSHx: 18:44 hand; iw - Immunization history:: Adult Immunizations not up to date. - Infectious Disease History:: Denies. - Social history:: Smoking status: Patient/guardian denies using tobacco, the patient reports quitting approximately 6 years ago. - Family history:: not pertinent. Screenin:[address] [facility] ED Fall Risk Assessment (Adult) History of falling in the last 3 months, tl4 including since admission No falls in past 3 months (0 pts) Confusion or Disorientation No (0 pts) Intoxicated or Sedated No (0 pts) Impaired Gait No (0 pts) Mobility Assist Device Used No (0 pt) Altered Elimination No (0 pt) Score/Fall Risk Level 0 - 2 = Low Risk Oriented to surroundings, Maintained a safe environment, Educated pt \T\ family on fall prevention, incl call for assistance when getting out of bed, Assessed \T\ reinforced patient's understanding of fall precautions. Abuse screen: Denies threats or abuse. Denies injuries from another. Nutritional screening: No deficits noted. Tuberculosis screening: No symptoms or risk factors identified. Assessment: 18:57 General: Appears in no apparent distress. Behavior is calm, cooperative. Pain: tl4 Complains of pain in left arm. Neuro: Level of Consciousness is awake, alert, obeys commands, Oriented to person, place, time, situation, Student Officer are equal bilaterally Moves all extremities. Full function Gait is steady, Speech is normal. Cardiovascular: Capillary refill < 3 seconds Patient's skin is warm and dry. Rhythm is sinus rhythm. Respiratory: Airway is patent Respiratory effort is even, unlabored, Respiratory pattern is regular, symmetrical, Breath sounds are clear bilaterally. GI: No signs and/or symptoms were reported involving the gastrointestinal system. : No signs and/or symptoms were reported regarding the genitourinary system. EENT: No signs and/or symptoms were reported regarding the EENT system. Derm: No signs and/or symptoms reported regarding the dermatologic system. Musculoskeletal: No signs and/or symptoms reported regarding the musculoskeletal system. Vital Signs: 18:42 BP 130 / 90; Pulse 89; Resp 18; Pulse Ox 96% on R/A; Weight 113.4 kg; Height 6 ft. 2 iw in. ; Pain 8/10; 18:59 BP 147 / 98; Pulse 82; Resp 18; Pulse Ox 97% on R/A; tl4 19:49 BP 137 / 97; Pulse 83; Resp 18; Pulse Ox 95% on R/A; rv 20:53 BP 135 / 85; Pulse 71; Resp 17; Pulse Ox 96% on R/A; rv 21:59 BP 116 / 85; Pulse 71; Resp 17; Temp 98; Pulse Ox 96% on R/A; rv 18:42 Body Mass Index 32.10 (113.40 kg, 187.96 cm) iw 18:42 Pain Scale: Adult iw ED Course: 18:25 Patient arrived in ED. mr 18:26 Russell Grayson MD is Private Physician. mr 18:30 David Keating MD is Attending Physician. rt 18:44 Triage completed. iw 18:45 Arm band placed on. iw 18:55 Ochoa Willingham, RN is Primary Nurse. tl4 19:00 Patient has correct armband on for positive identification. Placed in gown. Bed in low tl4 position. Call light in reach. Side rails up X 1. Adult w/ patient. Provided Education on: ED process. Client placed on continuous cardiac and pulse oximetry monitoring. NIBP monitoring applied. desk monitor on. Door closed. Noise minimized. Moved to private room. Warm blanket given. 19:01 No provider procedures requiring assistance completed. tl4 19:06 Report given to RANDY Santiago. tl4 19:14 Guy Walters, RN is Primary Nurse. rv 19:23 Inserted saline lock: 20 gauge in left forearm, using aseptic technique. Blood rv1 collected. 19:24 Basic Metabolic Panel Sent. rv1 19:24 CBC with Diff Sent. rv1 19:24 LFT's Sent. rv1 19:24 Magnesium Sent. rv1 19:24 Troponin HS Sent. rv1 19:31 Basic Metabolic Panel Sent. rv 19:31 LFT's Sent. rv 19:31 Magnesium Sent. rv 19:32 Troponin HS Sent. rv 19:32 Initial lab(s) drawn, by ED staff, sent to lab. EKG done, by ED staff, reviewed by David Keating MD. 19:42 UPPER EXTREMITY VENOUS UNILATE In Process Unspecified. EDMS 20:35 CT Head Brain wo Cont In Process Unspecified. EDMS 20:37 CT Chest For PE Angio In Process Unspecified. EDMS 20:37 Attending Physician role handed off by David Keating MD sp4 20:37 Kermit Villavicencio MD is Attending Physician. sp4 21:48 Russell Grayson MD is Referral Physician. sp4 22:00 IV discontinued, intact, bleeding controlled, No redness/swelling at site. Pressure rv dressing applied. Administered Medications: No medications were administered Medication: 19:00 VIS not applicable for this client. tl4 Outcome: 21:49 Discharge ordered by . sp4 22:00 Discharged to home ambulatory, with family, rv 22:00 Condition: good 22:00 Discharge instructions given to patient, Instructed on discharge instructions, follow up and referral plans. medication usage, Demonstrated understanding of instructions, follow-up care, medications, Prescriptions given X 2, 22:00 Patient left the ED. rv Signatures: Dispatcher [employer] EDPA Thalia Miller, Reg Reg mr Patience Silver, RN RN iw Guy Walters RN RN rv David Keating MD MD rt Gayle Acosta rv1 Kermit Villavicencio MD MD sp4 Ochoa Willingham RN RN tl4 Corrections: (The following items were deleted from the chart) 18:45 18:42 BP 130 / 90; Pulse 89bpm; Resp 18bpm; Pulse Ox 96% RA; iw iw
--- NOTE | 2023-10-03 21:49 | EDPHYS ---
Physician Documentation [facility] Name: Amandeep Emerson Age: 58 yrs Sex: Male : 1965 Arrival Date: 10/03/2023 Time: 18:23 Bed 16 Private MD: Russell Grayson ED Physician Kermit Villavicencio HPI: 10/02 19:47 This 58 yrs old Male presents to ER via Ambulatory with complaints of Breathing rt Difficulty, Arm weakness. 19:47 Patient has a previous history of DVT in the right upper extremity, does not currently rt anticoagulants. Over the past few days, he reports a tingling, painful sensation to the left upper extremity. Denies trauma. The patient reports having a intermittent pounding sensation in his chest starting today. States that he does not feel this way right now but does report a mild chest tightness. Denies other acute complaints, symptoms are moderate in severity, no other aggravating or alleviating factors.. 21:51 Patient care assumed from Dr. Keating. Patient reports left arm pain and discomfort sp4 for estimated past 2 weeks.. Historical: - Allergies: 18:44 No Known Allergies; iw - PMHx: 18:44 Headaches; COPD; High Cholesterol; Hypertension; DVT; iw - PSHx: 18:44 hand; iw - Immunization history:: Adult Immunizations not up to date. - Infectious Disease History:: Denies. - Social history:: Smoking status: Patient/guardian denies using tobacco, the patient reports quitting approximately 6 years ago. - Family history:: not pertinent. ROS: 19:47 Constitutional: Negative for fever, chills, and weight loss, Respiratory: Negative for rt shortness of breath, cough, wheezing, and pleuritic chest pain, Abdomen/GI: Negative for abdominal pain, nausea, vomiting, diarrhea, and constipation, Skin: Negative for injury, rash, and discoloration, 19:47 Cardiovascular: Positive for chest pain, palpitations, 19:47 MS/extremity: Positive for pain, Negative for injury or acute deformity, 19:47 Neuro: Positive for headache, Negative for loss of consciousness, Exam: 19:47 Constitutional: This is a well developed, well nourished patient who is awake, alert, rt and in no acute distress. Head/Face: Normocephalic, atraumatic. Chest/axilla: Normal chest wall appearance and motion. Nontender with no deformity. No lesions are appreciated. Cardiovascular: Regular rate and rhythm with a normal S1 and S2. No gallops, murmurs, or rubs. Normal PMI, no JVD. No pulse deficits. Respiratory: Lungs have equal breath sounds bilaterally, clear to auscultation and percussion. No rales, rhonchi or wheezes noted. No increased work of breathing, no retractions or nasal flaring. Abdomen/GI: Soft, non-tender, with normal bowel sounds. No distension or tympany. No guarding or rebound. No evidence of tenderness throughout. Skin: Warm, dry with normal turgor. Normal color with no rashes, no lesions, and no evidence of cellulitis. Neuro: Awake and alert, GCS 15, oriented to person, place, time, and situation. Cranial nerves II-XII grossly intact. Motor strength 5/5 in all extremities. Sensory grossly intact. Cerebellar exam normal. Normal gait. 19:47 ECG was reviewed by the Attending Physician. 19:47 Musculoskeletal/extremity: Appreciable swelling, tenderness to the left upper extremity, pulses, motor, sensation are intact.. Vital Signs: 18:42 BP 130 / 90; Pulse 89; Resp 18; Pulse Ox 96% on R/A; Weight 113.4 kg; Height 6 ft. 2 iw in. ; Pain 8/10; 18:59 BP 147 / 98; Pulse 82; Resp 18; Pulse Ox 97% on R/A; tl4 19:49 BP 137 / 97; Pulse 83; Resp 18; Pulse Ox 95% on R/A; rv 20:53 BP 135 / 85; Pulse 71; Resp 17; Pulse Ox 96% on R/A; rv 21:59 BP 116 / 85; Pulse 71; Resp 17; Temp 98; Pulse Ox 96% on R/A; rv 18:42 Body Mass Index 32.10 (113.40 kg, 187.96 cm) iw 18:42 Pain Scale: Adult iw MDM: 18:56 Patient medically screened. rt 21:36 ED course: EXAM DESCRIPTION: US - UPPER EXTREMITYVENOUS UNILATE - 10/03/2023 7:41 pm sp4 CLINICAL HISTORY: LUE swelling Arm swelling and edema COMPARISON: Extremity Venous Uni Ltd dated 02/10/2017 FINDINGS: Left upper extremity venous system was interrogated with Doppler technique. Normal flow, compressibility and augmentation was noted. There is no DVT present. IMPRESSION: No evidence of left upper extremity deep venous thrombosis.. ED course: EXAM DESCRIPTION: CT - Head Brain Wo Cont - 10/03/2023 8:33 pm CLINICAL HISTORY: HEADACHE COMPARISON: Head Brain Wo Cont dated 01/09/2023; Head angio dated 01/09/2023 TECHNIQUE: All CT scans are performed using dose optimization technique as appropriate and may include automated exposure control or mA/KV adjustment according to patient size. FINDINGS: No intracranial hemorrhage, hydrocephalus or extra-axial fluid collection.No areas of brain edema or evidence of midline shift. The paranasal sinuses and mastoids are clear. The calvarium is intact. IMPRESSION: No acute intracranial abnormality. . ED course: EXAM DESCRIPTION: CT - Chest For Pe Angio - 10/03/2023 8:35 pm CLINICAL HISTORY: Chest pain. CHEST PAIN COMPARISON: No comparisons TECHNIQUE: CT angiogram of the pulmonary arteries was performed with MIP. All CT scans are performed using dose optimization technique as appropriate and may include automated exposure control or mA/KV adjustment according to patient size. FINDINGS: No evidence of pulmonary thromboembolism. No acute aortic finding demonstrated. The lungs are clear. No significant pericardial or pleural fluid. No concerning bony finding. Fatty liver. IMPRESSION: No evidence of pulmonary thromboembolism. No acute lung findings. . 21:51 Differential diagnosis: Anxiety Reaction pneumonia, Pneumothorax Psychogenic. Data sp4 reviewed: vital signs, nurses notes, lab test result(s), EKG, radiologic studies, CT scan, doppler. ED course: Stable for discharge home with as needed medications for pain. Advised MRI of his C-spine on outpatient basis. On exam there is no acute neurologic deficits. . 10/02 19:06 Order name: Basic Metabolic Panel; Complete Time: 21:35 rt 10/02 19:06 Order name: CBC with Diff; Complete Time: 19:51 rt 10/02 19:06 Order name: LFT's; Complete Time: 21:35 rt 10/02 19:06 Order name: Magnesium; Complete Time: 21:35 rt 10/02 19:06 Order name: Troponin HS; Complete Time: 21:35 rt 10/02 19:06 Order name: CT Chest For PE Angio; Complete Time: 21:35 rt 10/02 19:06 Order name: CT Head Brain wo Cont; Complete Time: 21:35 rt 05 19:20 Order name: UPPER EXTREMITY VENOUS UNILATE; Complete Time: 19:51 EDMS 10/02 19:06 Order name: Cardiac monitoring; Complete Time: 19:24 rt 05 19:06 Order name: EKG - Nurse/Tech; Complete Time: 19:31 rt 05 19:06 Order name: IV Saline Lock; Complete Time: 19:24 rt 05 19:06 Order name: Labs collected and sent; Complete Time: 19:24 rt 05 19:06 Order name: O2 Per Protocol; Complete Time: 19:31 rt 05 19:06 Order name: O2 Sat Monitoring; Complete Time: 19:31 rt EC:47 Rate is 86 beats/min. Rhythm is regular, Normal Sinus Rhythm with No ectopy. QRS Webb rt is Normal. CO interval is normal. QRS interval is normal. QT interval is normal. T waves are Normal. No ST changes noted. Interpreted by me. Administered Medications: No medications were administered Disposition Summary: 10/03/23 21:49 Discharge Ordered Notes: Location: Home sp4 Problem: new sp4 Symptoms: have improved sp4 Condition: Stable sp4 Diagnosis - Pain in left arm sp4 - Left arm and neck pain , Sub acute neck pain sp4 Followup: sp4 - With: Russell Grayson MD - When: 7 - 10 days - Reason: Recheck today's complaints Discharge Instructions: - Discharge Summary Sheet sp4 - Cervical Radiculopathy, [id number] sp4 Forms: - Patient Portal Instructions sp4 Prescriptions: - Tramadol 50 mg Oral tablet - take 1 tablet ORAL route every 8 hours as needed; 20 tablet; Refills: 0, sp4 Product Selection Permitted - methocarbamol 750 mg Oral tablet - take 2 tablets ORAL route every 8 hours for 1 month PRN pain; 60 tablet; sp4 Refills: 0, Product Selection Permitted Signatures: Dispatcher [employer] EDPatience Hammonds RN RN iw David Keating MD MD rt Kermit Villavicencio MD MD sp4 Corrections: (The following items were deleted from the chart) 19:06 19:06 Chest For PE Angio+CT.RAD.BRZ ordered. EDMS EDMS 19:06 19:06 BASIC METABOLIC PANEL+C.LAB.BRZ ordered. EDMS EDMS : 19:06 CBC+H.LAB.BRZ ordered. EDMS EDMS : 19:06 HEPATIC FUNCTION+C.LAB.BRZ ordered. EDMS EDMS : 19:06 MAGNESIUM+C.LAB.BRZ ordered. EDMS EDMS : 19:06 Troponin High Sensitivity+C.LAB.BRZ ordered. EDMS EDMS : 19:06 Head Brain Wo Cont+CT.RAD.BRZ ordered. EDMS EDMS 19: 19:06 Extremity Venous Uni Ltd+US.RAD.BRZ ordered. EDMS EDMS
[2023-10-03 22:31] VITALS: BP 116/85; TEMP 98; O2SAT 96
--- NOTE | 2023-10-04 14:00 | EKG ---
Test Date: 2023-10-03 Test Time: 18:53:22 Linux System Engineer: WIL MEASUREMENT RESULTS: Intervals: Rate: 86 PA: 182 QRSD: 100 QT: 366 QTc: 437 Rudyard: P: 47 PA: 182 QRS: 3 T: 68 INTERPRETIVE STATEMENTS: Normal sinus rhythm Normal ECG Compared to ECG 01/09/2023 16:06:17 No significant changes Electronically Signed On 10-04-23 13:59:26 CDT by Justo Roca
== END 2023-10-03 22:00 | disposition home or self-care (01) ==
LOC: ER 18:23
DX: M79.602 Pain in left arm (principal); M54.2 Cervicalgia; R51.9 Headache, unspecified; R07.9 Chest pain, unspecified; Z86.718 Personal history of other venous thrombosis and embolism
CPT/HCPCS: 85025; 80048; 36415; 83735; 80076; 84484; 70450; 71275; 93971; Q9967; 93005

== ENCOUNTER 2023-12-04 12:04 | Emergency (ER) | payer OTHER ==
[2023-12-04] MEDS ORDERED: dexAMETHasone 10 MG/ML VIAL ONE (13:03)
[2023-12-04] MEDS ORDERED: KETOROLAC 30 MG/ML INJ ONE (13:03)
[2023-12-04] MEDS ORDERED: MORPHINE 4 MG/ML SYR ONE (13:04)
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
--- NOTE | 2023-12-04 13:37 | ER ---
Nurse's Notes [facility] Name: Amandeep Emerson Age: 58 yrs Sex: Male : 1965 Arrival Date: 12/04/2023 Time: 12:04 Bed 11 Private MD: Diagnosis: Low back pain Presentation: 12/03 12:22 Chief complaint: Patient states: he has been having low back pain since 11/29/23. patient ap3 reports the pain to be a 10/10 on the pain scale. Coronavirus screen: At this time, the client does not indicate any symptoms associated with coronavirus-19. Ebola Screen: No symptoms or risks identified at this time. Initial Sepsis Screen: Does the patient meet any 2 criteria? No. Patient's initial sepsis screen is negative. Does the patient have a suspected source of infection? No. Patient's initial sepsis screen is negative. Risk Assessment: Do you want to hurt yourself or someone else? Patient reports no desire to harm self or others. Onset of symptoms was November 29, 2023. 12:22 Method Of Arrival: Ambulatory ap3 12:22 Acuity: JOCELYN 4 ap3 Triage Assessment: 12:24 General: Appears uncomfortable, Behavior is calm, cooperative, appropriate for age. ap3 Pain: Complains of pain in low back area Pain currently is 10 out of 10 on a pain scale. Neuro: Level of Consciousness is awake, alert, obeys commands, Oriented to person, place, time, situation, Appropriate for age. Cardiovascular: Patient's skin is warm and dry. Respiratory: Airway is patent Respiratory effort is even, unlabored, Respiratory pattern is regular, symmetrical. Musculoskeletal: Range of motion: intact in all extremities, Reports pain in low back area. Historical: - Allergies: 12:23 No Known Allergies; ap3 - Home Meds: 13:44 metoprolol tartrate 100 mg Oral tab 1 tab 2 times per day [Active]; al5 - PMHx: 12:23 COPD; DVT; Headaches; High Cholesterol; Hypertension; Chronic back pain; ap3 - PSHx: 12:23 hand; ap3 - Immunization history:: Client reports having NOT received the Covid vaccine. - Infectious Disease History:: Denies. - Social history:: Smoking status: Patient reports use of chewing tobacco. - Family history:: not pertinent. - Hospitalizations: : No recent hospitalization is reported. Screenin:25 Abuse screen: Denies threats or abuse. Nutritional screening: No deficits noted. ap3 Tuberculosis screening: No symptoms or risk factors identified. 13:44 [facility] ED Fall Risk Assessment (Adult) History of falling in the last 3 months, al5 including since admission No falls in past 3 months (0 pts) Confusion or Disorientation No (0 pts) Intoxicated or Sedated No (0 pts) Impaired Gait No (0 pts) Mobility Assist Device Used No (0 pt) Altered Elimination No (0 pt) Score/Fall Risk Level 0 - 2 = Low Risk Oriented to surroundings, Maintained a safe environment, Hourly rounding (assess needs \T\ fall precautionary measures) done. Assessment: 13:15 General: Appears in no apparent distress. Behavior is calm, cooperative. Pain: al5 Complains of pain in back and low back area Pain currently is 8 out of 10 on a pain scale. Neuro: No deficits noted. Level of Consciousness is awake, alert, obeys commands, Oriented to person, place, time, situation, Speech is normal, Facial symmetry appears normal. Cardiovascular: No deficits noted. Capillary refill < 3 seconds Patient's skin is warm and dry. Respiratory: No deficits noted. Airway is patent Trachea midline Respiratory effort is even, unlabored, Respiratory pattern is regular, symmetrical. GI: No deficits noted. No signs and/or symptoms were reported involving the gastrointestinal system. : No deficits noted. No signs and/or symptoms were reported regarding the genitourinary system. EENT: No deficits noted. No signs and/or symptoms were reported regarding the EENT system. Derm: No deficits noted. No signs and/or symptoms reported regarding the dermatologic system. Skin is intact, Skin is pink, warm \T\ dry. normal. Musculoskeletal: Reports pain in back and low back area Pain is 8 out of 10 on a pain scale. has it happen now and again. Vital Signs: 12:22 BP 119 / 94; Pulse 104; Resp 18; Temp 98; Pulse Ox 96% ; Weight 115.67 kg; Height 6 ft. ap3 2 in. ; Pain 10/10; 13:14 BP 126 / 90; Pulse 102; Resp 18; Pulse Ox 96% on R/A; Pain 9/10; al5 13:43 BP 128 / 90; Pulse 100; Resp 18; Pulse Ox 96% on R/A; Pain 3/10; al5 12:22 Body Mass Index 32.74 (115.67 kg, 187.96 cm) ap3 12:22 Pain Scale: Adult ap3 13:14 Pain Scale: Adult al5 13:43 Pain Scale: Adult al5 ED Course: 12:09 Patient arrived in ED. ra3 12:19 John Bhatia MD is Attending Physician. rn 12:23 Triage completed. ap3 12:25 Arm band placed on left wrist. ap3 12:59 Hien Crump, RN is Primary Nurse. al5 13:16 No provider procedures requiring assistance completed. Patient did not have IV access al5 during this emergency room visit. 13:44 Patient has correct armband on for positive identification. Bed in low position. Call al5 light in reach. Side rails up X 1. Provided Education on: medication. Administered Medications: 13:16 Drug: Dexamethasone IM 10 mg IM once Route: IM; Site: left deltoid; al5 13:43 Follow up: Response: No adverse reaction al5 13:16 Drug: morphine IM 4 mg IM once Route: IM; Site: left deltoid; al5 13:43 Follow up: Response: No adverse reaction al5 13:16 Drug: Ketorolac IM 30 mg IM once Route: IM; Site: left deltoid; al5 13:43 Follow up: Response: No adverse reaction al5 Medication: 13:44 VIS not applicable for this client. al5 Outcome: 13:37 Discharge ordered by . rn 13:45 Discharged to home ambulatory, al5 13:45 Condition: good 13:45 Discharge instructions given to patient, Instructed on discharge instructions, follow up and referral plans. Demonstrated understanding of instructions, follow-up care, 13:45 Patient left the ED. al5 Signatures: John Bhatia MD MD rn Prokisch, Amanda, RN RN ap Mili Barone 3 Hien Crump RN RN al5
[2023-12-04 14:02] VITALS: BP 128/90; TEMP 98; O2SAT 96
== END 2023-12-04 13:45 | disposition home or self-care (01) ==
LOC: ER 12:04
DX: M54.50 Low back pain, unspecified (principal); I10 Essential (primary) hypertension; E78.00 Pure hypercholesterolemia, unspecified; R51.9 Headache, unspecified; J44.9 Chronic obstructive pulmonary disease, unspecified; G89.29 Other chronic pain; Z86.718 Personal history of other venous thrombosis and embolism
CPT/HCPCS: 96372; 99284; J1100

== ENCOUNTER 2023-12-16 18:11 | Emergency (ER) | payer OTHER ==
[2023-12-16] MEDS ORDERED: ONDANSETRON 4 MG/2 ML VIAL ONE (19:36)
[2023-12-16] MEDS ORDERED: dexAMETHasone 10 MG/ML VIAL ONE (19:36)
[2023-12-16] MEDS ORDERED: KETOROLAC 30 MG/ML INJ ONE (19:37)
[2023-12-16] MEDS ORDERED: MORPHINE 4 MG/ML SYR ONE (19:38)
--- NOTE | 2023-12-16 20:09 | RAD REPORT ---
EXAM DESCRIPTION: CT - Spine Lumbar Wo Con - 12/16/2023 7:56 pm CLINICAL HISTORY: PAIN COMPARISON: No comparisons TECHNIQUE: Axial noncontrast CT imaging of the lumbar spine was performed with coronal and sagittal re-formatted images. All CT scans are performed using dose optimization technique as appropriate and may include automated exposure control or mA/KV adjustment according to patient size. FINDINGS: No acute lumbar spine fracture seen. No aggressive marrow pattern or malalignment. Mild broad-based disc bulge is present at L3-4, L4-5, and L5-S1. There is evidence of mild bilateral neural foraminal narrowing bilaterally at L3-4, L4-5, and L5-S1. Intervertebral disc disease assessment is inherently limited by CT. Within these limitations, no high -grade canal stenosis suspected. IMPRESSION: No acute osseus abnormality involving the lumbar spine. Mild degenerative changes with e vidence of neural foraminal narrowing. No high-grade central spinal stenosis identified.
--- NOTE | 2023-12-16 20:40 | ER ---
Nurse's Notes [facility] Name: Amandeep Emerson Age: 58 yrs Sex: Male : 1965 Arrival Date: 12/16/2023 Time: 18:11 Bed 16 Private MD: Diagnosis: Low back pain Presentation: 12/15 18:26 Chief complaint: Patient states: Patient c/o back pain x 3 weeks. Pt states no relief tl4 with prescribed and OTC medications. Pt denies urinary sxs. Coronavirus screen: At this time, the client does not indicate any symptoms associated with coronavirus-19. Ebola Screen: No symptoms or risks identified at this time. Initial Sepsis Screen: Does the patient meet any 2 criteria? No. Patient's initial sepsis screen is negative. Does the patient have a suspected source of infection? No. Patient's initial sepsis screen is negative. Risk Assessment: Do you want to hurt yourself or someone else? Patient reports no desire to harm self or others. Onset of symptoms was November 26, 2023. 18:26 Method Of Arrival: Wheelchair tl4 18:26 Acuity: JOCELYN 4 tl4 Triage Assessment: 18:33 General: Appears uncomfortable, Behavior is calm, cooperative. Pain: Complains of pain tl4 in back. EENT: No signs and/or symptoms were reported regarding the EENT system. Neuro: Level of Consciousness is awake, alert, obeys commands, Oriented to person, place, time, situation. Cardiovascular: Capillary refill < 3 seconds Patient's skin is warm and dry. Respiratory: Airway is patent Respiratory effort is even, unlabored, Respiratory pattern is regular, symmetrical. GI: No signs and/or symptoms were reported involving the gastrointestinal system. : No signs and/or symptoms were reported regarding the genitourinary system. Derm: No signs and/or symptoms reported regarding the dermatologic system. Musculoskeletal: Circulation, motion, and sensation intact. Historical: - Allergies: 18:31 No Known Allergies; tl4 - PMHx: 18:31 chronic back pain; COPD; DVT; Headaches; High Cholesterol; Hypertension; tl4 - PSHx: 18:31 hand; tl4 - Immunization history:: Adult Immunizations unknown. - Infectious Disease History:: Denies. - Social history:: Smoking status: Patient denies any tobacco usage or history of. - Family history:: not pertinent. Screenin:42 [facility] ED Fall Risk Assessment (Adult) History of falling in the last 3 months, pc2 including since admission No falls in past 3 months (0 pts) Confusion or Disorientation No (0 pts) Intoxicated or Sedated No (0 pts) Impaired Gait No (0 pts) Mobility Assist Device Used No (0 pt) Altered Elimination No (0 pt) Score/Fall Risk Level 0 - 2 = Low Risk Oriented to surroundings. Abuse screen: Denies threats or abuse. Denies injuries from another. Nutritional screening: No deficits noted. Tuberculosis screening: No symptoms or risk factors identified. Assessment: 19:40 General: Appears in no apparent distress. comfortable, Behavior is calm, cooperative. pc2 Neuro: Level of Consciousness is awake, alert, obeys commands, Oriented to person, place, time, situation. Cardiovascular: Patient's skin is warm and dry. Respiratory: Airway is patent Respiratory effort is even, unlabored, Respiratory pattern is regular, symmetrical. GI: No signs and/or symptoms were reported involving the gastrointestinal system. : No signs and/or symptoms were reported regarding the genitourinary system. : No signs and/or symptoms were reported regarding the genitourinary system. EENT: No signs and/or symptoms were reported regarding the EENT system. Derm: No signs and/or symptoms reported regarding the dermatologic system. Musculoskeletal: Circulation, motion, and sensation intact. Range of motion: intact in all extremities, Reports pain in back. Vital Signs: 18:26 BP 155 / 99; Pulse 94; Resp 18; Temp 97.9(TE); Pulse Ox 96% on R/A; Weight 115.67 kg; tl4 Height 6 ft. 2 in. ; Pain 10/10; 20:30 BP 142 / 84; Pulse 88; Resp 16; Pulse Ox 98% on R/A; pc2 18:26 Body Mass Index 32.74 (115.67 kg, 187.96 cm) tl4 18:26 Pain Scale: Adult tl4 ED Course: 18:15 Patient arrived in ED. mg5 18:31 Triage completed. tl4 18:36 Arm band placed on left wrist. tl4 18:56 David Keating MD is Attending Physician. rt 19:19 Leda Singh, RN is Primary Nurse. pc2 19:30 Inserted saline lock: 20 gauge in right antecubital area, using aseptic technique. kj2 19:40 Bed in low position. Call light in reach. Side rails up X 1. pc2 19:55 CT Lumbar Spine Wo Con In Process Unspecified. EDMS 20:44 No provider procedures requiring assistance completed. IV discontinued, intact, pc2 bleeding controlled, No redness/swelling at site. Pressure dressing applied. 20:45 Provided Education on: POC and time frame. pc2 Administered Medications: 19:44 Drug: Ketorolac IVP 15 mg IVP once Route: IVP; Site: right antecubital; kj2 20:47 Follow up: Response: No adverse reaction; Marked relief of symptoms pc2 19:45 Drug: Ondansetron IVP 4 mg IVP once; over 2 minutes Route: IVP; Site: right antecubital;kj2 20:47 Follow up: Response: No adverse reaction pc2 19:49 Drug: Dexamethasone IVP 10 mg IVP once; (not to exceed 40 mg) Route: IVP; Site: right kj2 antecubital; 20:47 Follow up: Response: No adverse reaction pc2 19:50 Drug: morphine IVP or IV 4 mg IVP once over 4 mins Route: IVP; Infused Over: 4 mins; kj2 Site: right antecubital; 20:47 Follow up: Response: No adverse reaction; Marked relief of symptoms; RASS: Alert and pc2 Calm (0) Medication: 20:45 VIS not applicable for this client. pc2 Outcome: 20:40 Discharge ordered by . rt 20:45 Condition: stable pc2 20:45 Discharged to home ambulatory, pc2 20:45 Discharge instructions given to patient, Instructed on discharge instructions, follow up and referral plans. Demonstrated understanding of instructions, follow-up care, 20:51 Patient left the ED. pc2 Signatures: Dispatcher [employer] EDMS David Keating MD MD rt Sara Aguilar mg5 Ochoa Willingham RN RN tl4 Leda Singh, RN RN pc2 Leatha Stafford, RANDY RN kj2
--- NOTE | 2023-12-16 20:40 | EDPHYS ---
Physician Documentation [facility] Name: Amandeep Emerson Age: 58 yrs Sex: Male : 1965 Arrival Date: 12/16/2023 Time: 18:11 Bed 16 Private MD: ED Physician David Keating HPI: 12/15 19:38 This 58 yrs old Male presents to ER via Wheelchair with complaints of Back Pain. rt 19:38 Patient with history of chronic back pain presents to the ED with worsening of the back rt pain. The patient has not seen his primary for that. Has been taking muscle relaxers, tramadol states that has not been adequately controlling his symptoms. Denies numbness, tingling. Denies other acute complaints at this time, symptoms are moderate in severity, no other aggravating or alleviating factors.. Historical: - Allergies: 18:31 No Known Allergies; tl4 - PMHx: 18:31 chronic back pain; COPD; DVT; Headaches; High Cholesterol; Hypertension; tl4 - PSHx: 18:31 hand; tl4 - Immunization history:: Adult Immunizations unknown. - Infectious Disease History:: Denies. - Social history:: Smoking status: Patient denies any tobacco usage or history of. - Family history:: not pertinent. ROS: 19:38 Constitutional: Negative for fever, chills, and weight loss, Cardiovascular: Negative rt for chest pain, palpitations, and edema, Respiratory: Negative for shortness of breath, cough, wheezing, and pleuritic chest pain, Abdomen/GI: Negative for abdominal pain, nausea, vomiting, diarrhea, and constipation, Skin: Negative for injury, rash, and discoloration, Neuro: Negative for headache, weakness, numbness, tingling, and seizure, 19:38 Back: Positive for pain at rest, pain with movement, Exam: 19:38 Constitutional: This is a well developed, well nourished patient who is awake, alert, rt and in no acute distress. Head/Face: Normocephalic, atraumatic. Chest/axilla: Normal chest wall appearance and motion. Nontender with no deformity. No lesions are appreciated. Cardiovascular: Regular rate and rhythm with a normal S1 and S2. No gallops, murmurs, or rubs. Normal PMI, no JVD. No pulse deficits. Respiratory: Lungs have equal breath sounds bilaterally, clear to auscultation and percussion. No rales, rhonchi or wheezes noted. No increased work of breathing, no retractions or nasal flaring. Abdomen/GI: Soft, non-tender, with normal bowel sounds. No distension or tympany. No guarding or rebound. No evidence of tenderness throughout. Skin: Warm, dry with normal turgor. Normal color with no rashes, no lesions, and no evidence of cellulitis. MS/ Extremity: Pulses equal, no cyanosis. Neurovascular intact. Full, normal range of motion. Neuro: Awake and alert, GCS 15, oriented to person, place, time, and situation. Cranial nerves II-XII grossly intact. Motor strength 5/5 in all extremities. Sensory grossly intact. Cerebellar exam normal. Normal gait. 19:38 Back: Tenderness to the lower lumbar, paraspinal regions, no step-offs, Vital Signs: 18:26 BP 155 / 99; Pulse 94; Resp 18; Temp 97.9(TE); Pulse Ox 96% on R/A; Weight 115.67 kg; tl4 Height 6 ft. 2 in. ; Pain 10/10; 20:30 BP 142 / 84; Pulse 88; Resp 16; Pulse Ox 98% on R/A; pc2 18:26 Body Mass Index 32.74 (115.67 kg, 187.96 cm) tl4 18:26 Pain Scale: Adult tl4 MDM: 18:57 Patient medically screened. rt 20:53 Differential diagnosis: Compression fracture, chronic back pain, muscle spasm, disc rt disease. Data reviewed: vital signs, nurses notes, radiologic studies. I considered the following discharge prescriptions or medication management in the emergency department Medications were administered in the Emergency Department. See MAR. Independent interpretation of the following test(s) in the Emergency Department CT Scan: My interpretation is No fracture seen on my interpretation of CT scan images. Care significantly affected by the following chronic conditions: Chronic Obstructive Pulmonary Disease. Counseling: I had a detailed discussion with the patient and/or guardian regarding the historical points, exam findings, and any diagnostic results supporting the discharge/admit diagnosis, radiology results, the need for outpatient follow up. Response to treatment: the patient's symptoms have markedly improved after treatment. 12/15 19:07 Order name: CT Lumbar Spine Wo Con; Complete Time: 20:10 rt Administered Medications: 19:44 Drug: Ketorolac IVP 15 mg IVP once Route: IVP; Site: right antecubital; kj2 20:47 Follow up: Response: No adverse reaction; Marked relief of symptoms pc2 19:45 Drug: Ondansetron IVP 4 mg IVP once; over 2 minutes Route: IVP; Site: right antecubital;kj2 20:47 Follow up: Response: No adverse reaction pc2 19:49 Drug: Dexamethasone IVP 10 mg IVP once; (not to exceed 40 mg) Route: IVP; Site: right kj2 antecubital; 20:47 Follow up: Response: No adverse reaction pc2 19:50 Drug: morphine IVP or IV 4 mg IVP once over 4 mins Route: IVP; Infused Over: 4 mins; kj2 Site: right antecubital; 20:47 Follow up: Response: No adverse reaction; Marked relief of symptoms; RASS: Alert and pc2 Calm (0) Disposition Summary: 12/16/23 20:40 Discharge Ordered Notes: Location: Home rt Problem: an ongoing problem rt Symptoms: have improved rt Condition: Stable rt Diagnosis - Low back pain rt Followup: rt - With: Private Physician - When: 2 - 3 days - Reason: Discharge Instructions: - Discharge Summary Sheet rt - Chronic Back Pain rt Forms: - Medication Reconciliation Form rt - Antibiotic Education rt - Prescription Opioid Use rt - Patient Portal Instructions rt - Leadership Thank You Letter rt Signatures: Dispatcher [employer] David Bear MD MD rt Ochoa Willingham RN RN tl4 Leatha Stafford RN RN kj2 Leda Singh RN pc2
[2023-12-20 14:50] VITALS: BP 142/84; TEMP 97.9; O2SAT 98
== END 2023-12-16 20:51 | disposition home or self-care (01) ==
LOC: ER 18:11
DX: M54.50 Low back pain, unspecified (principal); I10 Essential (primary) hypertension; E78.00 Pure hypercholesterolemia, unspecified; J44.9 Chronic obstructive pulmonary disease, unspecified; Z86.718 Personal history of other venous thrombosis and embolism
CPT/HCPCS: 72131; 96375; 96374; 99284; J1100; J2405

== ENCOUNTER 2024-06-19 18:42 | Emergency (ER) | payer OTHER ==
--- NOTE | 2024-06-19 20:02 | ER ---
Nurse's Notes [facility] Name: Amandeep Emerson Age: 58 yrs Sex: Male : 1965 Arrival Date: 06/19/2024 Time: 18:42 Bed IW5 Private MD: Diagnosis: Presentation: 06/19 19:39 Chief complaint: Patient states: c/o dizziness, abdominal cramping, sob, shaking, and al5 cough. cough started yesterday, all of the other symptoms started today. no one in the household is sick. Coronavirus screen: chills, cough unrelated to allergies, shaking with chills, shortness of breath. Ebola Screen: No symptoms or risks identified at this time. Initial Sepsis Screen: Does the patient meet any 2 criteria? HR > 90 bpm. Does the patient have a suspected source of infection? No. Patient's initial sepsis screen is negative. Risk Assessment: Do you want to hurt yourself or someone else? Patient reports no desire to harm self or others. Onset of symptoms was June 19, 2024. 19:39 Method Of Arrival: Ambulatory al5 19:39 Acuity: JOCELYN 3 al5 Triage Assessment: 19:42 General: Appears in no apparent distress. Behavior is calm, cooperative. Pain: al5 Complains of pain in abdomen. EENT: No signs and/or symptoms were reported regarding the EENT system. Neuro: Level of Consciousness is awake, alert, obeys commands, Oriented to person, place, time, situation. Cardiovascular: Patient's skin is warm and dry. Respiratory: Airway is patent Respiratory effort is even, unlabored, Respiratory pattern is regular, symmetrical. Respiratory: Reports shortness of breath cough that is. GI: Reports lower abdominal pain, upper abdominal pain. : No signs and/or symptoms were reported regarding the genitourinary system. Derm: Skin is intact, is healthy with good turgor, Skin is normal. Musculoskeletal: No signs and/or symptoms reported regarding the musculoskeletal system. Historical: - Allergies: 19:37 No Known Allergies; al5 - Home Meds: 19:37 metoprolol tartrate 100 mg Oral tab 1 tab 2 times per day [Active]; tramadol 50 mg oral al5 tablet as needed [Active]; - PMHx: 19:37 chronic back pain; COPD; DVT; Headaches; High Cholesterol; Hypertension; al5 - PSHx: 19:37 hand; al5 - Immunization history:: Adult Immunizations up to date. - Infectious Disease History:: Denies. - Social history:: Smoking status: Patient/guardian denies using tobacco, the patient reports quitting approximately 7 years ago. Vital Signs: 19:39 BP 137 / 99; Pulse 106; Resp 18; Temp 98.5; Pulse Ox 96% on R/A; Weight 115.67 kg; al5 Height 6 ft. 2 in. ; Pain 5/10; 19:39 Body Mass Index 32.74 (115.67 kg, 187.96 cm) al5 19:39 Pain Scale: Adult al5 ED Course: 18:44 Patient arrived in ED. ra3 19:42 Triage completed. al5 19:43 Arm band placed on right wrist. Patient placed in waiting room, in view of staff al5 members, Patient notified of wait time. 20:00 Glen Guerrero PA is PHCP. gigi 20:00 John Bhatia MD is Attending Physician. cp Administered Medications: No medications were administered Outcome: 20:01 Eloped from waiting room, before seeing physician Time discovered patient gone: May at 20:00 20:01 Condition: good 20:02 Patient left the ED. vc1 Signatures: Glen Guerrero PA PA cp Calcote, Vanessa RN RN vc1 Mili Barone ra3 Hien Crump RN RN al5
[2024-06-19 23:21] VITALS: BP 137/99; TEMP 98.5; O2SAT 96
== END 2024-06-19 20:02 | disposition left against medical advice (07) ==
LOC: ER 18:42
DX: Z53.21 Procedure and treatment not carried out due to patient leaving prior to being seen by health care provider (principal)
CPT/HCPCS: 99281

== ENCOUNTER 2024-06-19 22:13 | Emergency (ER) | payer OTHER ==
[2024-06-19] MEDS ORDERED: ALBUTEROL 2.5 MG/3 ML NEB SOL ONE ×2 (23:16→23:17)
[2024-06-19] MEDS ORDERED: IPRATROPIUM BROM 0.5MG/2.5ML ONE (23:16)
[2024-06-19] MEDS ORDERED: METHYLPREDNISOLONE 125 MG INJ ONE (23:30)
[2024-06-19 23:42] LABS: Absolute Monocytes 0.9 K/uL (0.1-1.3); Absolute Neutrophil 7.1 K/uL (1.8-8.0); Basophils % 0.3 % (0-1.3); Eosinophils % 0.4 % (0-4.4); Hematocrit 42.3 % (39.6-49.0); Hemoglobin 14.3 g/dL (13.6-17.9); Lymphocytes % 10.7 % (15.3-44.8); MCH 29.4 pg (27.0-35.0); MCHC 33.9 g/dL (32.0-36.0); MCV 86.8 fL (80-100); Monocytes % 10.3 % (3.3-12.3); Neutrophils % 78.3 % (41.7-73.7); Nucleated Red Blood Cells % 0.1 % (0-0); PT Prothrombin Time 12.4 SECONDS (9.4-12.5); Platelets 157 thou/uL (152-406); Protime INR 1.18; RBC Red Blood Cell Count 4.87 M/uL (4.33-5.43); Red Cell Distribution Width 13.1 % (12.1-15.2)
[2024-06-19 23:49] LABS: Albumin 3.4 g/dL (3.4-5.0); Albumin/Globulin Ratio 0.9 (1.1-1.8); Anion Gap 10.7 mEq/L (5.0-15.0); Bilirubin Direct 0.2 mg/dL (0-0.2); Bilirubin Indirect, Calculated 0.4 mg/dL (0.2-0.8); Bilirubin Total 0.6 mg/dL (0.2-1.0); Globulin 3.8 g/dL (2.3-3.5); Magnesium 1.8 mg/dL (1.6-2.4); Potassium 3.7 mEq/L (3.5-5.1); Protein, Total 7.2 g/dL (6.4-8.2); Troponin High Sensitivity 4.4 pg/mL (<58.9)
[2024-06-20 00:14] LABS: SARS-CoV-2 Antigen CONTROL BLUE LINE VIS/BG OK; SARS-CoV-2 Antigen Rapid Res Negative (Negative)
--- NOTE | 2024-06-20 01:43 | RAD REPORT ---
EXAM: CT Angiography Chest, Abdomen and Pelvis With Intravenous Contrast CLINICAL HISTORY: The patient is 58 years old and is Male; chest pain;Abd pain TECHNIQUE: Axial computed tomographic angiography images of the chest, abdomen and pelvis with intravenous con trast. Sagittal and coronal reformatted images were created and reviewed. This CT exam was performed using one or more of the following dose reduction techniques: automated exposure control, adjustment of the mA and/or kV according to patient size, and/or use of iterative reconstruction technique. MIP reconstructed images were created and reviewed. COMPARISON: No relevant prior studies available. FINDINGS: VASCULATURE: AORTA: No acute findings. No aortic aneurysm. No dissection. PULMONARY ARTERIES: Unremarkable as visualized. No pulmonary embolism is identified. GREAT VESSELS OF AORTIC ARCH: No acute findings. No dissection. No arterial occlusion or sign ificant stenosis. CELIAC TRUNK AND MESENTERIC ARTERIES: No acute findings. No occlusion or significant stenosis. RENAL ARTERIES: No acute findings. No occlusion or significant stenosis. ILIAC ARTERIES: No acute findings. No occlusion or significant stenosis. CHEST: TRACHEA: The tracheobronchial tree is patent. LUNGS: Minimal dependent densities in the lung bases are present. The lungs are otherwise well- inflated and clear. PLEURAL SPACE: Unremarkable. No significant effusion. No pneumothorax. HEART: Unremarkable. No cardiomegaly. No significant pericardial effusion. ABDOMEN: LIVER: The liver is enlarged and fatty. GALLBLADDER AND BILE DUCTS: The gallbladder is minimally distended. No calcified gallstones or du ctal dilatation is seen. PANCREAS: Unremarkable. No ductal dilation. No mass. SPLEEN: Unremarkable. No splenomegaly. ADRENALS: Unremarkable. No mass. KIDNEYS AND URETERS: Unremarkable. No hydronephrosis. No solid mass. STOMACH AND BOWEL: The stomach is minimally distended with fluid and air. A duodenal diverticulum is noted without surrounding inflammation. The small bowel is normal in appearance. A moderate amount stool is present throughout the colon. There is no mucosal thickening or evidence of obstructi on. PELVIS: APPENDIX: The appendix is normal in caliber without surrounding inflammation. BLADDER: The bladder is not well-distended. REPRODUCTIVE: Unremarkable as visualized. CHEST, ABDOMEN and PELVIS: INTRAPERITONEAL SPACE: Unremarkable. No significant fluid collection. No free air. BONES/JOINTS: No acute fracture. No dislocation. SOFT TISSUES: There are small bilateral fat containing inguinal hernias. LYMPH NODES: Unremarkable. No enlarged lymph nodes. IMPRESSION: No acute findings on this CTA of the chest, abdomen and pelvis to explain the patient's symptoms. Electronically signed by: Annette Castellanos MD 06/20/2024 01:32 AM [facility] Due to temporary technical issues with the PACS/[employer] reporting system, reports are being sharmaine d by the in-house radiologist without review as a courtesy to ensure prompt reporting the interpreting radiologist is fully responsible for the content of the report. Transcribed Date/Time: 06/20/2024 1:43 AM
--- NOTE | 2024-06-20 01:44 | RAD REPORT ---
EXAM: CT Head Without Intravenous Contrast CLINICAL HISTORY: The patient is 58 years old and is Male; DIZZINESS TECHNIQUE: Axial computed tomography images of the head/brain without intravenous contrast. Sagittal and cor onal reformatted images were created and reviewed. This CT exam was performed using one or more of the following dose reduction techniques: automated exposure control, adjustment of the mA and/or kV according to patient size, and/or use of iterative reconstruction technique. COMPARISON: CT October 03, 2023 FINDINGS: BRAIN: Unremarkable. The rodriguez-white matter differentiation is preserved . No hemorrhage. No s ignificant white matter disease. No edema. No extra-axial fluid collections. VENTRICLES: Unremarkable. No ventriculomegaly. BONES/JOINTS: No acute fracture. SOFT TISSUES: Unremarkable. SINUSES: Unremarkable as visualized. No acute sinusitis. MASTOID AIR CELLS: Unremarkable as visualized. No mastoid effusion. ORBITS: Unremarkable as visualized. IMPRESSION: No acute intracranial findings. Electronically signed by: Annette Castellanos MD 06/20/2024 01:33 AM [facility] Due to temporary technical issues with the PACS/[employer] reporting system, reports are being sharmaine d by the in-house radiologist without review as a courtesy to ensure prompt reporting the interpreting radiologist is fully responsible for the content of the report. Transcribed Date/Time: 06/20/2024 1:43 AM
--- NOTE | 2024-06-20 01:57 | EDPHYS ---
Physician Documentation [facility] Name: Amandeep Emerson Age: 58 yrs Sex: Male : 1965 Arrival Date: 06/19/2024 Time: 22:13 Bed 19 Private MD: ED Physician John Bhatia HPI: 06/19 22:45 This 58 yrs old Male presents to ER via Ambulatory with complaints of Dizziness, cp Shortness Of Breath, Cough, Fever. 22:45 The patient presents with dizziness, lightheadedness. cp 22:45 Patient's baseline: Neuro: alert and fully oriented, Motor: no deficits, Ambulation: cp walks without assistance, Speech: normal. 22:45 Patient also c/o bilateral lower chest pain and abdominal pain in area of hernia. cp Patient reports hernia has been present for years and reports noticing blood in stool for years. Was unable to have colonoscopy done due to cost. Historical: - Allergies: 23:02 No Known Allergies; mt4 - PMHx: 23:02 chronic back pain; COPD; DVT; Headaches; High Cholesterol; Hypertension; mt4 - PSHx: 06/20 02:15 hand; mt4 - Immunization history:: Adult Immunizations up to date. - Infectious Disease History:: Denies. - Social history:: Smoking status: Patient denies any tobacco usage or history of. ROS: 06/19 22:50 Constitutional: Positive for fever, cp 22:50 Eyes: Negative for injury, pain, redness, and discharge, cp 22:50 Cardiovascular: Positive for chest pain, 22:50 Respiratory: Positive for cough, shortness of breath, 22:50 Abdomen/GI: Positive for abdominal pain, Negative for vomiting, diarrhea, constipation, 22:50 : Negative for urinary symptoms, cp 22:50 Neuro: Positive for dizziness, headache, Negative for altered mental status, numbness, syncope, weakness, 22:50 ENT: Negative for sore throat, cp 22:50 All other systems are negative, Exam: 22:55 Constitutional: The patient appears in no acute distress, alert, awake, cp non-diaphoretic, non-toxic, well developed, well nourished, 22:55 Head/Face: Normocephalic, atraumatic. cp 22:55 Eyes: Periorbital structures: appear normal, Pupils: equal, round, and reactive to light and accomodation, Extraocular movements: intact throughout, Conjunctiva: normal, no exudate, no injection, Sclera: no appreciated abnormality, Lids and lashes: appear normal, bilaterally, 22:55 ENT: External ear(s): are unremarkable, Nose: is normal, Mouth: Lips: moist, Oral mucosa: moist, Posterior pharynx: Airway: no evidence of obstruction, patent, 22:55 Neck: ROM/movement: is normal, is supple, without pain, no range of motions limitations, no meningismus, no nuchal rigidity, 22:55 Chest/axilla: Inspection: normal, Palpation: is normal, no crepitus, no tenderness, 22:55 Cardiovascular: Rate: tachycardic, Rhythm: regular, 22:55 Respiratory: the patient does not display signs of respiratory distress, Respirations: labored breathing, is not present, intercostal retractions, are absent, Breath sounds: bronchial sounds, that are mild, are heard diffusely, stridor, is not appreciated, wheezing: is not appreciated, 22:55 Abdomen/GI: Bowel sounds: active, all quadrants, Palpation: soft, in all quadrants, mild abdominal tenderness, in all quadrants, Hernia: noted in the epigastric area, tenderness, that is mild, 22:55 Back: CVA tenderness, is absent, 22:55 Neuro: Orientation: to person, place \T\ time. Mentation: is normal, Motor: moves all fours, no focal deficits, Sensation: no obvious gross deficits, 23:47 ECG was reviewed by the Attending Physician. cp Vital Signs: 22:56 BP 142 / 93; Pulse 106; Resp 12; Temp 99.7(O); Pulse Ox 94% on R/A; Weight 115.67 kg mt4 (R); Height 6 ft. 2 in. (R); Pain 8/10; 06/20 01:39 BP 136 / 85; Pulse 93; Resp 16; Temp 98.3(O); Pulse Ox 94% on R/A; mt4 06/19 22:56 Body Mass Index 32.74 (115.67 kg, 187.96 cm) ca4 06/19 22:56 Pain Scale: Adult ca4 [place] Coma Score: 00:20 Eye Response: spontaneous(4). Motor Response: obeys commands(6). Verbal Response: mt4 oriented(5). Total: 15. 02:13 Eye Response: spontaneous(4). Motor Response: obeys commands(6). Verbal Response: mt4 oriented(5). Total: 15. MDM: 06/19 22:22 Medical Screening Exam initiated 06/20 01:57 Data reviewed: vital signs, nurses notes, lab test result(s), EKG, radiologic studies, cp CT scan, plain films, and as a result, I will discharge patient. 01:57 Differential diagnosis: hypovolemia, idiopathic dizziness, COPD exacerbation, cp pneumonia, CVA. I considered the following discharge prescriptions or medication management in the emergency department Medications were administered in the Emergency Department. See MAR. Independent interpretation of the following test(s) in the Emergency Department EKG: See my EKG interpretation above. Care significantly affected by the following chronic conditions: Hypertension, Chronic Obstructive Pulmonary Disease. Counseling: I had a detailed discussion with the patient and/or guardian regarding the historical points, exam findings, and any diagnostic results supporting the discharge/admit diagnosis, lab results, radiology results, the need for outpatient follow up, a family practitioner, to return to the emergency department if symptoms worsen or persist or if there are any questions or concerns that arise at home. Response to treatment: the patient's symptoms have mildly improved after treatment. 06/19 21: Order name: Basic Metabolic Panel; Complete Time: 00: 06/20 00:27 Interpretation: Normal except: GLUC 115; GFR 88; CA 8.4. 06/19 21:41 Order name: CBC with Diff; Complete Time: : 06/20 00:27 Interpretation: Normal except: OLAYINKA% 78.3; LYM% 10.7. 06/19 21:41 Order name: LFT's; Complete Time: 00: 06/20 01:51 Interpretation: Normal except: GLOB 3.8; A/G 0.9. 06/19 21: Order name: Magnesium; Complete Time: 00: 06/20 01:51 Interpretation: Reviewed. 06/19 21: Order name: NT PRO-BNP; Complete Time: 00: 06/19 21:41 Order name: PT-INR; Complete Time: 00: 06/19 21:41 Order name: Troponin HS; Complete Time: 00:26 cp 06/20 01:51 Interpretation: Reviewed. 06/19 22:41 Order name: Influenza Screen (a \T\ B); Complete Time: 00:26 cp 06/19 22:41 Order name: SARS RAPID; Complete Time: 00:26 cp 06/19 22:41 Order name: Lipase; Complete Time: 00:26 cp 06/19 22:41 Order name: RSV; Complete Time: 00:26 cp 06/20 01:52 Interpretation: Reviewed. 06/19 22:41 Order name: XRAY Chest (1 view) cp 06/20 00:29 Order name: CT Head Brain wo Cont cp 06/20 01:50 Interpretation: Report reviewed. 06/20 00:29 Order name: CT Aorta for Dissection 06/20 01:51 Interpretation: Report reviewed. 06/19 22:41 Order name: Cardiac monitoring; Complete Time: 23:08 06/19 22:41 Order name: EKG - Nurse/Tech; Complete Time: 23:54 06/19 22:41 Order name: IV Saline Lock; Complete Time: 23:08 06/19 22:41 Order name: Labs collected and sent; Complete Time: 23:08 cp 06/19 22:41 Order name: O2 Per Protocol; Complete Time: 23:08 06/19 22:41 Order name: O2 Sat Monitoring; Complete Time: 23:08 cp EC/23 23:47 Rate is 97 beats/min. Rhythm is regular. PA interval is normal. QRS interval is normal. cp QT interval is normal. T waves are Inverted in leads aVL, aVR. Interpreted by me. Reviewed by me. Administered Medications: 23:36 Drug: DuoNeb Nebulize (2.5 mg - 0.5 mg) 3 ml Nebulizer once Route: Nebulizer; mt4 06/20 01:54 Follow up: Response: No adverse reaction mt4 06/19 23:36 Drug: MethylPrednisoLONE IVP 125 mg IVP once Route: IVP; Site: right antecubital; mt4 06/20 01:54 Follow up: Response: No adverse reaction mt4 02:00 Drug: Meclizine PO 25 mg PO once Route: PO; mt4 02:12 Follow up: Response: No adverse reaction ca4 Disposition: 02:35 Co-signature as Attending Physician, John Bhatia MD I reviewed the patient's care rn provided by the Advanced Practice Provider and agree with the diagnosis and treatment plan. Disposition Summary: 06/20/24 01:57 Discharge Ordered Notes: Location: Home cp Problem: new cp Symptoms: have improved cp Condition: Stable cp Diagnosis - COPD/ Chronic obstructive pulmonary disease with (acute) exacerbation cp - Dizziness and giddiness cp - Chest pain, unspecified cp - Abdominal pain, unspecified cp Followup: cp - With: Private Physician - When: 2 - 3 days - Reason: Worsening of condition Discharge Instructions: - Discharge Summary Sheet cp - Abdominal Pain, Adult cp - Nonspecific Chest Pain, Adult cp - Dizziness cp - Chronic Obstructive Pulmonary Disease Exacerbation cp - Aspirin and Your Heart cp Forms: - Medication Reconciliation Form cp - Antibiotic Education cp - Prescription Opioid Use cp - Patient Portal Instructions cp - Leadership Thank You Letter cp Prescriptions: - albuterol sulfate 90 mcg/actuation Inhalation HFA Aerosol Inhaler - inhale 1 puff INHALATION route every 4 to 6 hours as needed for bronchospasm; cp administer via ventilator; 1 unit; Refills: 0, Product Selection Permitted - Bromfed DM 2-30-10 mg/5 mL Oral syrup - administer 10 milliliter ORAL route every 6 hours as needed for cough; 240 cp milliliter; Refills: 0, Product Selection Permitted - Meclizine 25 mg Oral tablet - take 1 tablet ORAL route every 8 hours As needed; 20 tablet; Refills: 0, cp Product Selection Permitted - Prednisone 20 mg Oral Tablet - take 3 tablets ORAL route once daily for 5 days; 15 tablet; Refills: 0, Product cp Selection Permitted Signatures: Dispatcher [employer] EDMN John Bhatia MD MD rn Page, Corey, PA PA cp Tath, Molinec, RN RN mt4 Corrections: (The following items were deleted from the chart) 06/19 22:41 22:41 BASIC METABOLIC PANEL+C.LAB.BRZ ordered. EDMS EDMS 22:41 22:41 CBC+H.LAB.BRZ ordered. EDMS EDMS 22:41 22:41 HEPATIC FUNCTION+C.LAB.BRZ ordered. EDMS EDMS 22:41 22:41 MAGNESIUM+C.LAB.BRZ ordered. EDMS EDMS 22:41 22:41 PROBNP+C.LAB.BRZ ordered. EDMS EDMS 22:41 22:41 PROTIME (+INR)+COAG.LAB.BRZ ordered. EDMS EDMS 22: 22:41 Troponin High Sensitivity+C.LAB.BRZ ordered. EDMS EDMS : 22:41 Influenza Screen (A \T\ B)+BA.LAB.BRZ ordered. EDMS EDMS : 22:41 SARS-COV-2 Antigen Rapid+I.LAB.BRZ ordered. EDMS EDMS : 22:41 LIPASE+C.LAB.BRZ ordered. EDMS EDMS : 22:41 Respiratory Syncytial Virus Ag+BA.LAB.BRZ ordered. EDMS EDMS : 22:41 Chest Single View+RAD.RAD.BRZ ordered. EDMS EDMS
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
[2024-06-20] MEDS ORDERED: MECLIZINE HCL 12.5 MG TAB ONE (01:58)
[2024-06-20 06:01] VITALS: O2SAT 94
[2024-06-20 06:03] VITALS: BP 136/85; TEMP 98.3
--- NOTE | 2024-06-20 09:34 | RAD REPORT ---
EXAM: Chest Single View HISTORY: Cough;SOB COMPARISON: None. FINDINGS: LUNGS/PLEURA: Low lung volumes which likely accentuates the pulmonary vasculature. Question bronchial wall thickening. No focal consolidation. MEDIASTINUM: The mediastinal silhouette is within normal limits. CARDIAC: The cardiac silhouette is within normal limits. UPPER ABDOMEN: No significant abnormality. BONES: No acute abnormality. LINES/TUBES/OTHER: N/A IMPRESSION: Low lung volumes which accentuates the pulmonary vasculature. Question bronchial wall thickening whic h could be secondary to bronchitis or possibly mild edema.
--- NOTE | 2024-06-20 15:06 | EKG ---
Test Date: 2024-06-19 Test Time: 23:45:37 Pulmonary Function Technologist: WILLY MEASUREMENT RESULTS: Intervals: Rate: 97 ME: 178 QRSD: 86 QT: 348 QTc: 441 Helix: P: 50 ME: 178 QRS: 23 T: 78 INTERPRETIVE STATEMENTS: Normal sinus rhythm Anterior infarct, age undetermined Abnormal ECG Compared to ECG 10/03/2023 18:53:22 Myocardial infarct finding now present Electronically Signed On 06-20-24 15:05:42 BUILDING OFFICIAL by Justo Roca
== END 2024-06-20 02:16 | disposition home or self-care (01) ==
LOC: ER 22:13
DX: J44.1 Chronic obstructive pulmonary disease with (acute) exacerbation (principal); R42 Dizziness and giddiness; R10.13 Epigastric pain; I10 Essential (primary) hypertension; Z11.52 Encounter for screening for COVID-19
CPT/HCPCS: 93005; 85025; 80048; 36415; 83735; 85610; 80076; 84484; 83690; 83880; 87807; 87804 ×2; 70450; 71275; 74175; 71045; 96374; 99285; 87811; Q9967; J8597; J7613; J7644; J2919

== ENCOUNTER 2025-01-05 15:42 | Inpatient (IN) | payer OTHER ==
[2025-01-05 16:32] LABS: Absolute Lymphocytes (CBC) 1.8 K/uL (0.7-4.9); Hematocrit 38.5 % (39.6-49.0); Hemoglobin 13.0 g/dL (13.6-17.9); MCH 29.5 pg (27.0-35.0); MCHC 33.8 g/dL (32.0-36.0); MCV 87.4 fL (80-100); MPV 10.1 fL (7.6-11.3); Nucleated RBC Absolute Count 0.0 (0-0); Nucleated Red Blood Cells % 0.1 % (0-0); RBC Red Blood Cell Count 4.41 M/uL (4.33-5.43); White Blood Count 6.60 thou/uL (4.3-10.9)
[2025-01-05 16:52] LABS: ALT/SGPT 38 U/L (16-61); AST/SGOT 18 U/L (15-37); Albumin 3.3 g/dL (3.4-5.0); Albumin/Globulin Ratio 1.0 (1.1-1.8); Alkaline Phosphatase 111 U/L (45-117); Anion Gap 9.3 mEq/L (5.0-15.0); BUN Blood Urea Nitrogen 8 mg/dL (7-18); Globulin 3.2 g/dL (2.3-3.5); Glucose Level 145 mg/dL (74-106); Magnesium 2.0 mg/dL (1.6-2.4); Potassium 3.3 mEq/L (3.5-5.1); Troponin High Sensitivity 3.5 pg/mL (<58.9)
[2025-01-05 16:55] LABS: Bilirubin Indirect, Calculated 0.3 mg/dL (0.2-0.8)
--- NOTE | 2025-01-05 17:10 | RAD REPORT ---
EXAMINATION: Head Brain Wo Cont CLINICAL INDICATION: Male, 59 years old.DIZZINESS TECHNIQUE: Axial CT images from the skull base to the vertex without intravenous contrast. Coronal an d sagittal reformatted images were created from the data set. One or more of the following dose reduction techniques were used: Automated exposure control, adjustment of the mA and/or kV according to patient size, and/or iterative reconstruction. Unless otherwise specified, incidental findings do not require dedicated imaging follow-up. [id number]. COMPARISON: No prior exams FINDINGS: INTRACRANIAL: No acute intracranial hemorrhage. No acute large vascular territory infarct. No hydroce phalus. No mass effect or midline shift. Mild chronic small vessel ischemic changes. VASCULATURE: No visualized abnormalities in the arteries or dural venous sinuses. SCALP/SKULL: No calvarial fracture identified. No acute soft tissue abnormality. SINUSES: The visualized paranasal sinuses are mostly clear. No significant mastoid fluid. IMPRESSION: No acute intracranial abnormality.
[2025-01-05] MEDS ORDERED: NA CHLORIDE 0.9% 500 ML ONE (18:29)
--- NOTE | 2025-01-05 18:46 | EDPHYS ---
Physician Documentation [facility] Name: Amandeep Emerson Age: 59 yrs Sex: Male : 1965 Arrival Date: 01/05/2025 Time: 15:42 Bed 20 Private MD: ED Physician Glen Burgos HPI: 01/05 16:07 This 59 yrs old Male presents to ER via Ambulatory with complaints of Dizziness, Fall kb Injury. 16:07 Pt is a 59 year old male who presents for dizziness, being off balance and feels like kb he can't open his eyes all the way x 4 days. States he was here last month and diagnosed with a TIA. States he has not fallen since the symptoms started, but he has been close to doing so multiple times. Denies numbness, tingling. Historical: - Allergies: 16:00 No Known Allergies; dd2 - PMHx: 16:00 chronic back pain; COPD; DVT; Headaches; High Cholesterol; Hypertension; Transient dd2 cerebral ischemia; - PSHx: 16:00 hand; dd2 - Immunization history:: Adult Immunizations up to date. - Infectious Disease History:: Denies. - Social history:: Smoking status: Patient reports use of chewing tobacco. ROS: 16:10 Constitutional: As per HPI kb Exam: 16:10 Constitutional: This is a well developed, well nourished patient who is awake, alert, kb and in no acute distress. Head/Face: Normocephalic, atraumatic. ENT: Moist Mucous membranes Cardiovascular: Regular rate Respiratory: Respirations even and unlabored. No increased work of breathing. Talking in full sentences Abdomen/GI: Soft, non-tender. No distention Skin: Warm, dry with normal turgor. Normal color. MS/ Extremity: Pulses equal, no cyanosis. Neurovascular intact. Full, normal range of motion. Neuro: Awake and alert, GCS 15, oriented to person, place, time, and situation. 18:45 ECG was reviewed by the Attending Physician. Vital Signs: 15:58 BP 126 / 86; Pulse 91; Resp 16; Temp 98.4; Pulse Ox 97% on R/A; Weight 113.85 kg; dd2 Height 6 ft. 2 in. ; Pain 0/10; 17:04 BP 123 / 96; Pulse 72; Resp 18; Temp 98.2; Pulse Ox 98% on R/A; Pain 0/10; nh2 17:15 BP 122 / 88 Supine; Pulse 69; nh2 17:18 BP 124 / 88 Sitting; Pulse 75; nh2 17:18 BP 129 / 94 Standing; Pulse 72; nh2 18:16 BP 133 / 92; Pulse 67; Resp 16; Pulse Ox 96% on R/A; iw 19:03 BP 133 / 81; Pulse 74; Resp 18; Pulse Ox 100% on R/A; Pain 0/10; tb4 20:09 BP 130 / 95; Pulse 78; Resp 20; Pulse Ox 99% on R/A; Pain 0/10; tb4 21:04 BP 129 / 76; Pulse 72; Resp 18; Pulse Ox 98% on R/A; Pain 0/10; tb4 15:58 Body Mass Index 32.23 (113.85 kg, 187.96 cm) dd2 15:58 Pain Scale: Adult dd2 17:04 Pain Scale: Adult nh2 19:03 Pain Scale: Adult tb4 20:09 Pain Scale: Adult tb4 21:04 Pain Scale: Adult tb4 MDM: 15:50 Medical Screening Exam initiated kb 16:09 Data reviewed: vital signs, nurses notes. External Records Reviewed: Inpatient record: kb CTA head and neck done on 12/16/24 wnl. MRI brain from 12/16/24 showed subacute infarct. . 18:39 Differential diagnosis: cardiac arrhythmia, CVA, generalized weakness, idiopathic kb dizziness, TIA, vertigo. Consideration of Admission/Observation Patient was admitted/placed on observation. Escalation of care including admission/observation considered. Management of patient was discussed with the following: Hospitalist: Dr Ugalde accepts pt for admission. Historians other than the Patient: Spouse/Significant Other: . Counseling: I had a detailed discussion with the patient and/or guardian regarding the historical points, exam findings, and any diagnostic results supporting the discharge/admit diagnosis, lab results, radiology results, the need for further work-up and treatment in the hospital. 01/05 16:06 Order name: Basic Metabolic Panel; Complete Time: 17:04 kb 01/05 16:06 Order name: CBC with Diff; Complete Time: 16:52 kb 01/05 16:06 Order name: Hepatic Function; Complete Time: 17:04 kb 01/05 16:06 Order name: Magnesium; Complete Time: 17:04 kb 01/05 16:06 Order name: Troponin High Sensitivity; Complete Time: 17:04 kb 01/05 19:00 Order name: CBC with Automated Diff EDMS 01/05 19:00 Order name: CBC with Automated Diff EDMS 01/05 19:00 Order name: Comprehensive Metabolic Panel EDKS 01/05 19:00 Order name: Comprehensive Metabolic Panel EDKS 01/05 16:06 Order name: CT Head Brain wo Cont; Complete Time: 17:12 kb 01/05 16:06 Order name: EKG; Complete Time: 16:06 kb 01/05 19:00 Order name: Physical Therapy Consult EDKS 01/05 16:06 Order name: Cardiac monitoring; Complete Time: 16:33 kb 01/05 16:06 Order name: EKG - Nurse/Tech; Complete Time: 16:33 kb 01/05 16:06 Order name: IV Saline Lock; Complete Time: 16:19 kb 08 16:06 Order name: Labs collected and sent; Complete Time: 16:19 kb 01/05 16:06 Order name: NPO; Complete Time: 16:19 kb 01/05 16:06 Order name: O2 Per Protocol; Complete Time: 16:33 kb 01/05 16:06 Order name: O2 Sat Monitoring; Complete Time: 16:33 kb 01/05 16:06 Order name: Orthostatics; Complete Time: 17:20 kb EC:45 Rate is 77 beats/min. Rhythm is regular. QRS [place] is Normal. [place] interval is normal at kb 182 msec. QRS interval is normal at 102 msec. QT interval is normal at 459 msec. Administered Medications: 18:34 Drug: NS 0.9% IV 500 ml 500 ml IV at 1 bolus once; to be given as a bolus over 30 nh2 minutes Volume: 500 ml; Route: IV; Rate: 1 bolus; Site: right antecubital; 20:23 Follow up: Response: No adverse reaction; IV Status: Completed infusion tb4 Disposition Summary: 01/05/25 18:45 Hospitalization Ordered Notes: Hospitalization Status: Observation kb Provider: James Ugalde Location: Telemetry/MedSurg (observation) kb Condition: Stable kb Problem: new kb Symptoms: are unchanged kb Bed/Room Type: Standard Room Assignment: 205(01/05/25 20:04) rv1 Diagnosis - Dizziness and giddiness kb - Unsteadiness on feet kb Forms: - Medication Reconciliation Form kb - SBAR form kb - Leadership Thank You Letter kb Addendum: 01/08/2025 14:34 Co-signature as Attending Physician, Glen Burgos MD I agree with the assessment and c hayward plan of care. Signatures: Dispatcher [employer] EDJen Valenzuela, ACTUARIAL MATHEMATICIAN-C ACTUARIAL MATHEMATICIAN-Ckb Glen Burgos MD MD cha Villegas, Rebecca rv1 HAILEY KAMARA RN RN dd2 Eliazar Sanchez Jr, RN RN nh2 Zuleyka Alfred RN tb4 Corrections: (The following items were deleted from the chart) 01/05 20:04 18:45 kb rv1
--- NOTE | 2025-01-05 18:46 | ER ---
Nurse's Notes [facility] Name: Amandeep Emerson Age: 59 yrs Sex: Male : 1965 Arrival Date: 01/05/2025 Time: 15:42 Bed 20 Private MD: Diagnosis: Dizziness and giddiness;Unsteadiness on feet Presentation: 01/05 15:58 Chief complaint: Patient states: HE HAS FELT DIZZY SINCE SUNDAY, STUMBLES AND FALLING dd2 AGAINST THE WALL. Coronavirus screen: At this time, the client does not indicate any symptoms associated with coronavirus-19. Ebola Screen: No symptoms or risks identified at this time. Initial Sepsis Screen: Does the patient meet any 2 criteria? No. Patient's initial sepsis screen is negative. Does the patient have a suspected source of infection? No. Patient's initial sepsis screen is negative. Risk Assessment: Do you want to hurt yourself or someone else? Patient reports no desire to harm self or others. Onset of symptoms was January 02, 2025. 15:58 Method Of Arrival: Ambulatory dd2 15:58 Acuity: JOCELYN 3 dd2 Triage Assessment: 16:00 General: Appears in no apparent distress. uncomfortable, Behavior is calm, cooperative, dd2 appropriate for age. Pain: Denies pain. Neuro: Reports blurred vision dizziness, since 01/02/2025. Historical: - Allergies: 16:00 No Known Allergies; dd2 - PMHx: 16:00 chronic back pain; COPD; DVT; Headaches; High Cholesterol; Hypertension; Transient dd2 cerebral ischemia; - PSHx: 16:00 hand; dd2 - Immunization history:: Adult Immunizations up to date. - Infectious Disease History:: Denies. - Social history:: Smoking status: Patient reports use of chewing tobacco. Screenin:05 [facility] ED Fall Risk Assessment (Adult) History of falling in the last 3 months, nh2 including since admission Yes- physiologic fall (2 pts) Confusion or Disorientation No (0 pts) Intoxicated or Sedated No (0 pts) Impaired Gait No (0 pts) Mobility Assist Device Used No (0 pt) Altered Elimination No (0 pt) Score/Fall Risk Level 0 - 2 = Low Risk Oriented to surroundings, Maintained a safe environment, Educated pt \T\ family on fall prevention, incl call for assistance when getting out of bed. Abuse screen: Denies threats or abuse. Abuse screen: Denies threats or abuse. Nutritional screening: No deficits noted. Tuberculosis screening: No symptoms or risk factors identified. Assessment: 17:09 General: Appears in no apparent distress. Denies fever, feeling ill, fatigue, chills. nh2 Pain: Denies pain. Neuro: Level of Consciousness is awake, alert, obeys commands, Oriented to person, place, time, situation, Appropriate for age Reports dizziness, since Sunday numbness in right foot and left foot reports also having balance issues and episodes of stumbling and needing to grab items for support. Cardiovascular: Capillary refill < 3 seconds in bilateral fingers toes Clubbing of nail beds is absent JVD is absent Patient's skin is warm and dry. Respiratory: Airway is patent Trachea midline Respiratory effort is even, unlabored, Respiratory pattern is regular, symmetrical, Denies shortness of breath. GI: Abdomen is round non-distended, Patient currently denies diarrhea, nausea. : Denies burning with urination. Musculoskeletal: Range of motion: intact in all extremities. 17:58 Reassessment: Patient appears in no apparent distress at this time. Patient and/or iw family updated on plan of care and expected duration. Pain level reassessed. Patient is alert, oriented x 3, equal unlabored respirations, skin warm/dry/pink. family at bedside, pt awaiting MRI. 19:37 Reassessment: Patient is alert, oriented x 3, equal unlabored respirations, skin tb4 warm/dry/pink. Patient remains stable at this time, alert and oriented x3, denies pain 0/10. General: Appears in no apparent distress. Behavior is calm, cooperative, family at bedside. Pain: Denies pain. Neuro: Level of Consciousness is awake, alert, obeys commands, Oriented to person, place, time, situation, Silver Designer are equal bilaterally Moves all extremities. Full function Gait is steady, Speech is normal, Facial symmetry appears normal, Reports dizziness. Respiratory: Airway is patent Trachea midline Respiratory effort is even, unlabored, Respiratory pattern is regular, symmetrical. GI: No deficits noted. : No deficits noted. No signs and/or symptoms were reported regarding the genitourinary system. EENT: No signs and/or symptoms were reported regarding the EENT system. Vital Signs: 15:58 BP 126 / 86; Pulse 91; Resp 16; Temp 98.4; Pulse Ox 97% on R/A; Weight 113.85 kg; dd2 Height 6 ft. 2 in. ; Pain 0/10; 17:04 BP 123 / 96; Pulse 72; Resp 18; Temp 98.2; Pulse Ox 98% on R/A; Pain 0/10; nh2 17:15 BP 122 / 88 Supine; Pulse 69; nh2 17:18 BP 124 / 88 Sitting; Pulse 75; nh2 17:18 BP 129 / 94 Standing; Pulse 72; nh2 18:16 BP 133 / 92; Pulse 67; Resp 16; Pulse Ox 96% on R/A; iw 19:03 BP 133 / 81; Pulse 74; Resp 18; Pulse Ox 100% on R/A; Pain 0/10; tb4 20:09 BP 130 / 95; Pulse 78; Resp 20; Pulse Ox 99% on R/A; Pain 0/10; tb4 21:04 BP 129 / 76; Pulse 72; Resp 18; Pulse Ox 98% on R/A; Pain 0/10; tb4 15:58 Body Mass Index 32.23 (113.85 kg, 187.96 cm) dd2 15:58 Pain Scale: Adult dd2 17:04 Pain Scale: Adult nh2 19:03 Pain Scale: Adult tb4 20:09 Pain Scale: Adult tb4 21:04 Pain Scale: Adult tb4 ED Course: 15:44 Patient arrived in ED. mr 15:50 Antoine Jen[facility]ERRY [facility] kb 15:50 Glen Burgos MD is Attending Physician. kb 16:00 Triage completed. dd2 16:00 Arm band placed on right wrist. dd2 16:14 Inserted saline lock: 20 gauge in right antecubital area, using aseptic technique. nh2 Blood collected. Flushed with 10 mL NS. 16:19 Patience Silver, RN is Primary Nurse. iw 16:19 Basic Metabolic Panel Sent. nh2 16:19 CBC with Diff Sent. nh2 16:19 Hepatic Function Sent. nh2 16:19 Magnesium Sent. nh2 16:19 Troponin High Sensitivity Sent. nh2 16:42 CT Head Brain wo Cont In Process Unspecified. EDMS 17:05 Patient has correct armband on for positive identification. Placed in gown. Bed in low nh2 position. Call light in reach. Side rails up X 1. Provided Education on: call light in reach for assistance. 18:45 James Ugalde MD is Hospitalizing Provider. kb 19:37 Client placed on continuous cardiac and pulse oximetry monitoring. NIBP monitoring tb4 applied. Door closed. Lights dimmed. 19:37 Initial lab(s) drawn, by ED staff, sent to lab. EKG done, by ED staff, X-ray(s) taken. tb4 20:23 No provider procedures requiring assistance completed. tb4 Administered Medications: 18:34 Drug: NS 0.9% IV 500 ml 500 ml IV at 1 bolus once; to be given as a bolus over 30 nh2 minutes Volume: 500 ml; Route: IV; Rate: 1 bolus; Site: right antecubital; 20:23 Follow up: Response: No adverse reaction; IV Status: Completed infusion tb4 Medication: 17:05 VIS not applicable for this client. nh2 Outcome: 18:45 Decision to Hospitalize by Provider. kb 21:58 Patient left the ED. tb4 Signatures: Dispatcher [employer] EDMS Jen Schultz, SOURAV-C SUPERINTENDENT MECHANICAL-Ckb Thalia Miller, Reg Reg mr Patience Sivler, RN HAILEY Montero RN RN dd2 Eliazar Sanchez Jr, RN RN nh2 Brown, Terri RN RN tb4 Corrections: (The following items were deleted from the chart) 17:18 17:09 Neuro: Level of Consciousness is awake, alert, obeys commands, Oriented to nh2 person, place, time, situation, Appropriate for age nh2 17:26 17:09 Neuro: Level of Consciousness is awake, alert, obeys commands, Oriented to nh2 person, place, time, situation, Appropriate for age Reports dizziness, since Sunday numbness in right hand, left hand, right foot and left foot nh2 17:29 17:09 Neuro: Level of Consciousness is awake, alert, obeys commands, Oriented to nh2 person, place, time, situation, Appropriate for age Reports dizziness, since Conor numbness in left hand and right hand reports also having balance issues and episodes of stumbling and needing to grab items for support nh2
[2025-01-05] MEDS ORDERED: ONDANSETRON 4 MG/2 ML VIAL IV PRN (18:55)
--- NOTE | 2025-01-05 18:55 | P.HP ---
Certification for Inpatient Patient admitted to: Observation With expected LOS: <2 Midnights Practitioner: I am a practitioner with admitting privileges, knowledge of patient current condition, hospital course, and medical plan of care. Services: Services provided to patient in accordance with Admission requirements found in Title 42 Section 412.3 of the Code of Federal Regulations Patient History Date of Service: 01/05/25 Reason for admission: Dizziness History of Present Illness: 59 year old male with past medical history of hypercholesteremia, essential hypertension, hiatal hernia, headaches, dizziness, chronic back pain, history of DVT, TIA's, COPD, who was brought to ER with dizziness and presyncopal episodes. He was recently been admitted to the hospital with similar symptoms and palpitations and was treated and was discharged home but came back to ER with extreme dizziness and off-balance. He cannot even open the eyes for the last 4 days because of dizziness. Denies any weakness or numbness. No sick contacts. No history of herpes zoster. Denies any hearing issues Patient was assessed in the ER was admitted for further management e, Allergies No Known Allergies Allergy (Verified 01/26/20 16:03) Home medications list reviewed: Yes Home Medications: Albuterol Inhaler [Ventolin Inhaler*] 1 puff DAILY PRN 12/13/24 Atorvastatin Calcium [Lipitor] 1 tab PO DAILY 12/13/24 Aspirin [Aspirin EC 81 MG] 81 mg PO DAILY 30 Days #30 tab 12/17/24 Atorvastatin Calcium [Lipitor] 40 mg PO BEDTIME 30 Days #30 tab 12/17/24 Clopidogrel Bisulfate [Plavix*] 75 mg PO DAILY 30 Days #30 tab 12/17/24 Folic Acid 1 mg PO DAILY 30 Days #30 tab 12/17/24 Gabapentin [Neurontin*] 100 mg PO BID cap 12/17/24 Losartan Potassium [Cozaar*] 50 mg PO DAILY 30 Days #30 tab 12/17/24 Meclizine HCl [Antivert*] 25 mg PO Q6H PRN 7 Days #30 tab 12/17/24 Metoprolol Succinate [Toprol Xl*] 25 mg PO [id number] 30 Days #30 tab 12/17/24 - Past Medical/Surgical History Diabetic: No Past Medical History: Reviewed- Non-Contributory -: Hypertension -: Hypercholesteremia. -: Hiatal hernia. -: Headaches. -: Dizziness. -: PRE-DIABETES Past Surgical History: Reviewed- Non-Contributory -: Hand surgery. Psychosocial/ Personal History: Lives at home - Family History Family History: Reviewed- Non-Contributory - Family History Father -: Heart disease Sister -: Heart disease - Social History Smoking Status: Never smoker Alcohol use: No CD- Drugs: No Caffeine use: Yes Review of Systems 10-point ROS is otherwise unremarkable Other: Constitutional: Reports: generalized weakness. Skin: Denies: rash. Allergy/Immun: Denies: rhinorrhea, sneezing. Eyes: Denies: visual loss/blurred. ENT: Denies: earache, nasal congestion. Respiratory: Denies: non productive cough. Cardiovascular: Denies: chest pain, palpitations. GI: Denies: diarrhea, nausea. : Denies: dysuria. Musculoskeletal: Reports: arthritis. Denies: extremity pain. Heme: Denies: bleeding. Endocrine: Denies: polydipsia. Neuro: Reports: dizziness, gait problem, lightheaded, spinning sensation. Psych: Reports: anxiety. All systems rev & neg: except as noted Physical Examination - Vital Signs Temperature: 97.2 F Blood Pressure: 138/78 Pulse: 76 Respirations: 18 Pulse Ox (%): 94 - Physical Exam General: Alert, Oriented x3, Cooperative, Mild distress HEENT: Atraumatic, Normocephalic Neck: Supple, No Thyromegaly Respiratory: Clear to auscultation bilaterally, Normal air movement Cardiovascular: Regular rate/rhythm, Normal S1 S2 Capillary refill: <2 Seconds Gastrointestinal: Soft and benign, W/out hepatosplenomegaly, No ascites, No tenderness Musculoskeletal: No clubbing, No swelling Integumentary: No rashes, No tenderness/swelling Neurological: Normal speech, Normal strength at 5/5 x4 extr, Normal affect Lymphatics: No axilla or inguinal lymphadenopathy - Studies Laboratory Data (last 24 hrs) 01/05/25 01/05/25 16:14 16:14 WBC 6.60 Hgb 13.0 L Hct 38.5 L Plt Count 185 Sodium 142 Potassium 3.3 L BUN 8 Creatinine 0.86 Glucose 145 H Magnesium 2.0 Total Bilirubin 0.5 AST 18 ALT 38 Alkaline Phosphatase 111 Assessment and Plan - Plan Vertigo To rule out CVA CT findings noted No acute changes Will get an MRI , Ordered by ER Will start on meclizine IV hydration PT eval Hypertension Antihypertensives titrated Continue home medications and titrate as needed Hyperlipidemia Continue statin History of A-fib/SVT Monitor telemetry Heart rate controlled now Cardiology consult if patient's rhythm changes GI/DVT prophylaxis Advanced directive full code Discharge Plan: Home Plan to discharge in: 48 Hours - Advance Directives Does patient have a Living Will: No Does patient have a Durable POA for Healthcare: No - Code Status/Comfort Care Code Status: Full Code Time Spent Managing Pts Care (In Minutes): 48
[2025-01-05 21:39] VITALS: BMI 32.2
[2025-01-05] MEDS: ACETAMINOPHEN 325 MG TABLET PO PRN (21:49)
[2025-01-05] MEDS: HEPARIN 5000 UNIT/ML 1 ML VIAL SQ SCH (21:50)
[2025-01-05] MEDS: MECLIZINE HCL 12.5 MG TAB PO SCH (22:21)
[2025-01-05 22:33] VITALS: O2SAT 98
[2025-01-06 05:33] LABS: Absolute Lymphocytes (CBC) 1.8 K/uL (0.7-4.9); Hematocrit 35.9 % (39.6-49.0); Hemoglobin 12.4 g/dL (13.6-17.9); MCH 30.1 pg (27.0-35.0); MCHC 34.4 g/dL (32.0-36.0); MCV 87.3 fL (80-100); MPV 9.7 fL (7.6-11.3); Nucleated RBC Absolute Count 0.0 (0-0); Nucleated Red Blood Cells % 0.1 % (0-0); RBC Red Blood Cell Count 4.11 M/uL (4.33-5.43); White Blood Count 5.50 thou/uL (4.3-10.9)
[2025-01-06 06:13] LABS: ALT/SGPT 33.0 U/L (16-61); AST/SGOT 14.0 U/L (15-37); Albumin 2.9 g/dL (3.4-5.0); Albumin/Globulin Ratio 1.0 (1.1-1.8); Alkaline Phosphatase 102.0 U/L (45-117); Anion Gap 4.8 mEq/L (5.0-15.0); BUN Blood Urea Nitrogen 10.0 mg/dL (7-18); Globulin 2.9 g/dL (2.3-3.5); Glucose Level 127.0 mg/dL (74-106); Potassium 3.8 mEq/L (3.5-5.1)
--- NOTE | 2025-01-06 09:54 | RAD REPORT ---
EXAMINATION: MRI BRAIN WITHOUT CONTRAST CLINICAL INDICATION: off balanc;Dizziness TECHNIQUE: Multiplanar multisequence MR images of the brain were obtained without intravenous contras t. Unless otherwise specified, incidental findings do not require dedicated imaging follow-up. COMPARISON: 01/05/2025 FINDINGS: INTRACRANIAL: Diffusion-weighted images show no acute or early subacute infarction. No abnormal brain parenchymal signal. The ventricles are normal in size and morphology. No augmented susceptibility. There is no mass effect or midline shift. No abnormal extraaxial fluid collection. VASCULATURE: Normal signal voids in the larger intracranial arteries and dural venous sinuses. SINUSES: The paranasal sinuses and mastoid air cells are predominantly clear. BONE: The marrow signal pattern is within normal limits. IMPRESSION: Negative for acutre CVA or other acute intracranial finding.
[2025-01-06] MEDS: POTASSIUM CL SA 10 MEQ TAB PO ONE (09:56)
--- NOTE | 2025-01-06 16:58 | P.PN ---
Date of Service: 01/06/25 Subjective: MRI brain today with no acute findings. We discussed watching his heart monitor and checking his blood pressure in different positions. He states he has been getting frequent dizzy spells at work. He denies tinnitus or any pressure changes in the ear. He denies any recent infections. Review of Systems 10-point ROS is otherwise unremarkable except otherwise mentioned HPI Physical Examination - Vital Signs Temperature: 97.2 F Blood Pressure: 138/78 Pulse: 76 Respirations: 18 Pulse Ox (%): 94 - Physical Exam General: Alert, Oriented x3, Cooperative, Mild distress HEENT: Atraumatic, Normocephalic Neck: Supple, No Thyromegaly Respiratory: Clear to auscultation bilaterally, Normal air movement Cardiovascular: Regular rate/rhythm, Normal S1 S2 Capillary refill: <2 Seconds Gastrointestinal: Soft and benign, W/out hepatosplenomegaly, No ascites, No tenderness Musculoskeletal: No clubbing, No swelling Integumentary: No rashes, No tenderness/swelling Neurological: Normal speech, Normal strength at 5/5 x4 extr, Normal affect Lymphatics: No axilla or inguinal lymphadenopathy - Studies Laboratory Data (last 24 hrs) 01/05/25 01/05/25 16:14 16:14 WBC 6.60 Hgb 13.0 L Hct 38.5 L Plt Count 185 Sodium 142 Potassium 3.3 L BUN 8 Creatinine 0.86 Glucose 145 H Magnesium 2.0 Total Bilirubin 0.5 AST 18 ALT 38 Alkaline Phosphatase 111 Assessment and Plan Vertigo To rule out CVA CT findings noted No acute changes MRI brain without any acute finding Will start on meclizine IV hydration PT eval Check orthostatic blood pressures Await physical therapy Hypertension Antihypertensives titrated Continue home medications and titrate as needed Hyperlipidemia Continue statin History of A-fib/SVT Monitor telemetry Heart rate controlled now Cardiology consult if patient's rhythm changes GI/DVT prophylaxis Advanced directive full code Discharge Plan: Home Plan to discharge in: 48 Hours - Advance Directives Does patient have a Living Will: No Does patient have a Durable POA for Healthcare: No - Code Status/Comfort Care Code Status: Full Code Time Spent Managing Pts Care (In Minutes): 45
[2025-01-07 06:09] LABS: Absolute Lymphocytes (CBC) 1.9 K/uL (0.7-4.9); Hematocrit 38.4 % (39.6-49.0); Hemoglobin 12.8 g/dL (13.6-17.9); MCH 29.5 pg (27.0-35.0); MCHC 33.4 g/dL (32.0-36.0); MCV 88.3 fL (80-100); MPV 10.8 fL (7.6-11.3); Nucleated RBC Absolute Count 0.0 (0-0); Nucleated Red Blood Cells % 0.0 % (0-0); RBC Red Blood Cell Count 4.35 M/uL (4.33-5.43); White Blood Count 6.00 thou/uL (4.3-10.9)
[2025-01-07 06:25] LABS: ALT/SGPT 31.0 U/L (16-61); AST/SGOT 13.0 U/L (15-37); Albumin 3.2 g/dL (3.4-5.0); Albumin/Globulin Ratio 1.1 (1.1-1.8); Alkaline Phosphatase 106.0 U/L (45-117); Anion Gap 6.2 mEq/L (5.0-15.0); BUN Blood Urea Nitrogen 10.0 mg/dL (7-18); Globulin 2.8 g/dL (2.3-3.5); Glucose Level 122.0 mg/dL (74-106); Potassium 4.2 mEq/L (3.5-5.1)
[2025-01-07 07:41] LABS: Thyroid Stimulating Hormone 1.660 uIU/mL (0.358-3.740)
[2025-01-07 07:42] LABS: C-Reactive Protein < 2.90 mg/L (<3.00)
--- NOTE | 2025-01-07 10:41 | RAD REPORT ---
EXAMINATION: CAROTID DUPLEX ULTRASOUND CLINICAL INDICATION: Syncope TECHNIQUE: Real-time grayscale, color flow and spectral Doppler sonographic images were obtained of t he extracranial carotid system using a linear transducer. COMPARISON: No prior exam. FINDINGS: RIGHT: Common carotid artery: 108 cm/s Internal carotid artery: 91 cm/s External carotid artery: 103 cm/s Right ICA/CCA ratio: 0.9 Plaque: No significant plaquing seen. Vertebral artery Antegrade LEFT: Common carotid artery: 126 cm/s Internal carotid artery: 89 cm/s External carotid artery: 72 cm/s Left ICA/CCA ratio: 0.7 Plaque: No significant plaquing seen. Vertebral artery Antegrade IMPRESSION: No hemodynamically significant stenosis (greater than 50%) within the extracranial internal carotid a rteries. The degrees of stenosis, if any, are quantified according to the consensus statement of the Society o f Radiologists in Ultrasound (SRUS). Please refer to Berry E, Benny C, Lola G et al. Carotid Artery Stenosis: Rosado-Scale and Doppler US Diagnosis--Society of Radiologists in Ultrasound Consensus Conference. Radiology. 2003;229(2):340-6.
--- NOTE | 2025-01-07 16:36 | P.PN ---
Date of Service: 01/08/20 Subjective: Dizziness is about the same. We discussed his echo results and carotid artery ultrasound. He denies tinnitus, fevers, chills Review of Systems 10-point ROS is otherwise unremarkable except otherwise mentioned HPI Physical Examination - Vital Signs Temperature: 97.2 F Blood Pressure: 138/78 Pulse: 76 Respirations: 18 Pulse Ox (%): 94 - Physical Exam General: Alert, Oriented x3, Cooperative, Mild distress HEENT: Atraumatic, Normocephalic Neck: Supple, No Thyromegaly Respiratory: Clear to auscultation bilaterally, Normal air movement Cardiovascular: Regular rate/rhythm, Normal S1 S2 Capillary refill: <2 Seconds Gastrointestinal: Soft and benign, W/out hepatosplenomegaly, No ascites, No tenderness Musculoskeletal: No clubbing, No swelling Integumentary: No rashes, No tenderness/swelling Neurological: Normal speech, Normal strength at 5/5 x4 extr, Normal affect Lymphatics: No axilla or inguinal lymphadenopathy - Studies Laboratory Data (last 24 hrs) 01/05/25 01/05/25 16:14 16:14 WBC 6.60 Hgb 13.0 L Hct 38.5 L Plt Count 185 Sodium 142 Potassium 3.3 L BUN 8 Creatinine 0.86 Glucose 145 H Magnesium 2.0 Total Bilirubin 0.5 AST 18 ALT 38 Alkaline Phosphatase 111 Assessment and Plan Vertigo CT findings noted Recent echo on 12/14/2024 with normal systolic function and EF 60-65% Check telemetry MRI brain without any acute finding Carotid artery ultrasound negative Continue meclizine PT eval Check orthostatic blood pressures Possible discharge follow-up with ENT and neurology Hypertension Antihypertensives titrated Continue home medications and titrate as needed Hyperlipidemia Continue statin History of A-fib/SVT Monitor telemetry Heart rate controlled now Cardiology consult if patient's rhythm changes GI/DVT prophylaxis Advanced directive full code Discharge Plan: Home Plan to discharge in: 48 Hours - Advance Directives Does patient have a Living Will: No Does patient have a Durable POA for Healthcare: No - Code Status/Comfort Care Code Status: Full Code Time spent on the encounter, including patient evaluation, history taking, physical exam, medical decision making, coordination of care, and documentation, was 35 minutes. Time includes direct [id number] interaction with the patient and indirect time spent reviewing records, ordering tests, and discussing the care plan.
[2025-01-07] MEDS: GABAPENTIN 300 MG CAP PO ONE (17:50)
[2025-01-08 08:35] VITALS: BP 123/76; TEMP 97.7
--- NOTE | 2025-01-08 10:07 | P.DS ---
Admission Date: 01/06/25 Discharge Date: 01/08/25 Disposition: ROUTINE DISCHARGE Discharge Condition: GOOD Reason for Admission: Dizziness Brief History of Present Illness: 59 year old male with past medical history of hypercholesteremia, essential hypertension, hiatal hernia, headaches, dizziness, chronic back pain, history of DVT, TIA's, COPD, who was brought to ER with dizziness and presyncopal episodes. He was recently been admitted to the hospital with similar symptoms and palpitations and was treated and was discharged home but came back to ER with extreme dizziness and off-balance. He cannot even open the eyes for the last 4 days because of dizziness. Denies any weakness or numbness. No sick contacts. No history of herpes zoster. Denies any hearing issues. Upon admission MRI of the brain was negative. Bilateral carotid artery ultrasound was negative. Orthostatic vital signs within normal limits. Echocardiogram was also within normal limits. He has been advised to follow-up with an ENT to further delin eate the source of his balance issues. In addition he has been given the office number for a neurologist. He will continue meclizine upon discharge. Remainder of his medical problems are stable. He is medically optimized for discharge Hospital Course: - Physical Exam General: Alert, Oriented x3, Cooperative, Mild distress HEENT: Atraumatic, Normocephalic Neck: Supple, No Thyromegaly Respiratory: Clear to auscultation bilaterally, Normal air movement Cardiovascular: Regular rate/rhythm, Normal S1 S2 Capillary refill: <2 Seconds Gastrointestinal: Soft and benign, W/out hepatosplenomegaly, No ascites, No tenderness Musculoskeletal: No clubbing, No swelling Integumentary: No rashes, No tenderness/swelling Neurological: Normal speech, Normal strength at 5/5 x4 extr, Normal affect Lymphatics: No axilla or inguinal lymphadenopathy - Studies Laboratory Data (last 24 hrs) 01/05/25 01/05/25 16:14 16:14 WBC 6.60 Hgb 13.0 L Hct 38.5 L Plt Count 185 Sodium 142 Potassium 3.3 L BUN 8 Creatinine 0.86 Glucose 145 H Magnesium 2.0 Total Bilirubin 0.5 AST 18 ALT 38 Alkaline Phosphatase 111 Assessment and Plan Vertigo CT findings noted Recent echo on 12/14/2024 with normal systolic function and EF 60-65% Check telemetry MRI brain without any acute finding Carotid artery ultrasound negative Continue meclizine PT eval Check orthostatic blood pressures Possible discharge follow-up with ENT and neurology Hypertension Antihypertensives titrated Continue home medications and titrate as needed Hyperlipidemia Continue statin History of A-fib/SVT Monitor telemetry Heart rate controlled now Cardiology consult if patient's rhythm changes GI/DVT prophylaxis Advanced directive full code Discharge Plan: Home Plan to discharge in: 48 Hours - Advance Directives Does patient have a Living Will: No Does patient have a Durable POA for Healthcare: No Vital Signs/Physical Exam: Temp Pulse Resp BP Pulse Ox 97.7 F 87 16 123/76 93 01/08/25 08:00 01/08/25 08:00 01/08/25 08:00 01/08/25 08:00 01/08/25 08:00 Laboratory Data at Discharge: WBC 6.00 thou/uL (4.3-10.9) 01/07/25 05:05 Hgb 12.8 g/dL (13.6-17.9) L 01/07/25 05:05 Hct 38.4 % (39.6-49.0) L 01/07/25 05:05 Plt Count 153 thou/uL (152-406) 01/07/25 05:05 Sodium 144 mEq/L (136-145) 01/07/25 05:05 Potassium 4.2 mEq/L (3.5-5.1) 01/07/25 05:05 BUN 10 mg/dL (7-18) 01/07/25 05:05 Creatinine 0.79 mg/dL (0.70-1.30) 01/07/25 05:05 Glucose 122 mg/dL (74-106) H 01/07/25 05:05 Magnesium 2.0 mg/dL (1.6-2.4) 01/05/25 16:14 Total Bilirubin 0.3 mg/dL (0.2-1.0) 01/07/25 05:05 AST 13 U/L (15-37) L 01/07/25 05:05 ALT 31 U/L (16-61) 01/07/25 05:05 Alkaline Phosphatase 106 U/L (45-117) 01/07/25 05:05 Home Medications: Albuterol Inhaler [Ventolin Inhaler*] 1 puff DAILY PRN 12/13/24 Aspirin [Aspirin EC 81 MG] 81 mg PO DAILY 30 Days #30 tab 12/17/24 Atorvastatin Calcium [Lipitor] 40 mg PO BEDTIME 30 Days #30 tab 12/17/24 Clopidogrel Bisulfate [Plavix*] 75 mg PO DAILY 30 Days #30 tab 12/17/24 Folic Acid 1 mg PO DAILY 30 Days #30 tab 12/17/24 Losartan Potassium [Cozaar*] 50 mg PO DAILY 30 Days #30 tab 12/17/24 Meclizine HCl [Antivert*] 25 mg PO Q6H PRN 7 Days #30 tab 12/17/24 Metoprolol Succinate [Toprol Xl*] 25 mg PO [id number] 30 Days #30 tab 12/17/24 Gabapentin [Neurontin*] 300 mg PO BEDTIME 01/07/25 Followup: Donte Abarca MD [ASSOCIATE-ACTIVE - CAN ADMIT] - 1-2 Weeks Julissa Medeiros MD [ACTIVE - CAN ADMIT] - 1-2 Weeks Vaishali Neumann MD [Primary Care Provider] - 1-2 Weeks
== END 2025-01-08 11:40 | disposition home or self-care (01) | DRG 149 ==
LOC: ER 15:42 → ERHOLD 18:55 → 2ND 20:20 → OBSVTOIN 01-06 11:34
PROVIDERS: ADMIT Family Medicine; ATTEND Family Medicine
DX: R42 Dizziness and giddiness (principal); I47.10 Supraventricular tachycardia, unspecified; I48.91 Unspecified atrial fibrillation; I10 Essential (primary) hypertension; E78.00 Pure hypercholesterolemia, unspecified; J44.9 Chronic obstructive pulmonary disease, unspecified; F17.220 Nicotine dependence, chewing tobacco, uncomplicated; Z86.73 Personal history of transient ischemic attack (TIA), and cerebral infarction without residual deficits; Z86.718 Personal history of other venous thrombosis and embolism; Z79.82 Long term (current) use of aspirin; Z79.02 Long term (current) use of antithrombotics/antiplatelets; Z79.899 Other long term (current) drug therapy
CPT/HCPCS: 36415; 70450; 70551; 80048; 80053; 80076; 83735; 84443; 84484; 85025; 86140; 93005; 93880; 96360; 96361; 97116; 97161; 99284; G0378; J1644; J7040; J8597